=== PATIENT | male | born 1950 | race Caucasian/White ===

== ENCOUNTER → 2016-11-11 | Outpatient (CLI) | payer MEDICARE, BC ==
[2016-11-11 10:33] LABS: BASO # 0.1 x10^3/uL (0.0-0.2); BASO % 1 % (0-3); EOS # 0.1 x10^3/uL (0.0-0.7); EOS % 2 % (0-3); HEMATOCRIT 41.4 % (39.0-53.0); HEMOGLOBIN 13.8 g/dL (13.0-17.5); LYMPH # 1.1 x10^3/uL (1.0-4.8); LYMPH % 16 % (24-48); MEAN CORPUSCULAR HEMOGLOBIN 30 pg (25-35); MEAN CORPUSCULAR HGB CONC 33 g/dL (31-37); MEAN CORPUSCULAR VOLUME 89 fL (79-100); MONO # 0.9 x10^3/uL (0.0-1.1); MONO % 12 % (0-9); NEUT % 69 % (31-73); PLATELET COUNT 269 x10^3/uL (140-400); RED BLOOD COUNT 4.64 x10^6/uL (4.30-5.70); RED CELL DISTRIBUTION WIDTH 13.6 % (11.5-14.5); WHITE BLOOD COUNT 7.2 x10^3/uL (4.0-11.0)
== END | disposition home or self-care (01) ==
LOC: LAB 08:59
PROVIDERS: ATTEND Anesthesiology Pain Medicine
DX: Z11.2 Encounter for screening for other bacterial diseases (principal)
CPT/HCPCS: 36415; 85027; 87641

== ENCOUNTER 2016-12-06 14:25 | Emergency (ER) | payer MEDICARE, BC ==
[~2016-12-06] VITALS: Ht 180.3 cm; Wt 99.8 kg
[2016-12-06] MEDS ORDERED: FENTANYL PF 100 MCG/2 ML VIAL. IM ONE (15:15)
[2016-12-06 16:00] VITALS: BP 113/65
--- NOTE | 2016-12-06 16:00 | PHYS DOC ---
General Chief Complaint: BACK PAIN OR INJURY Stated Complaint: Back Pain Time Seen by MD: 14:57 Source: patient Exam Limitations: no limitations Problems: History of Present Illness Initial Comments Pt is 66/M to ED c/o back pain. Pt has h/o trauma in 2002 requiring spinal lynn, also has stimulator follows with pain management Dr Rondon. Three days ago pt swept sidewalk causing increased back pain/stiffness. No trauma on that day, uncertain if he "pulled something" or if spinal stimulator malfunction. Sx had been previously well controlled. No new neurodeficits, no leg/bowel/bladder symptoms. Pt points to L-S junction "all the way across" no specific bony pain and pt says sx are same as prior. Timing/Duration: other (2 days ago) Severity/Quality: severe, sharpness Location: lumbar spine Radiation: other (no radiation) Method of Injury: other Modifying Factors: worse with jarring, worse with movement, improves with rest Associated Symptoms: muscle spasms, lower back pain Allergies: Coded Allergies: No Known Drug Allergies (Unverified , 12/06/16) Past Medical History Medical History: other (chronic back pain, HTN, HLP, ) Surgical History: back surgery (lynn, stimulator), neck surgery, other ( comminuted left tib-fib fx) Social History Smoker: quit greater than 1 year Alcohol: occasionally Drugs: none Review of Systems Constitutional: denies chills, denies fever Respiratory: denies cough, denies shortness of breath Cardiovascular: denies chest pain, denies palpitations Gastrointestinal: denies abdominal pain, denies diarrhea, denies nausea, denies vomiting Genitourinary: denies dysuria, denies frequency, denies hematuria Musculoskeletal: see HPI Psychiatric/Neurological: see HPI Physical Exam General Appearance: moderate distress, obese Neck: non-tender, normal alignment Cardiovascular/Respiratory: normal peripheral pulses, no respiratory distress Gastrointestinal: non tender, soft Back: no CVA tenderness, no vertebral tenderness, muscle spasm Extremities: no evidence of injury, non-tender, pelvis stable 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 Pt with adequate pain relief in ED, he expressed agreement/understanding with treatment plan. Departure Time of Disposition: 15:56 Disposition: 01 HOME, SELF-CARE Diagnosis: Acute exacerbation chronic back pain Condition: GOOD Patient Instructions: Chronic Back Pain Additional Instructions: Rest, keep activity to "pain-free." Rx: percocet 7.5mg #20, prednisone, take with food as directed. Follow up with Dr Rondon next week for symptom and hardware recheck. Return to ED with new or changing symptoms. SOPHIA ALMAZAN DO Dec 06, 2016 16:00
[2016-12-06] MEDS ORDERED: OXYC-244 PO (16:01)
[2016-12-06] MEDS ORDERED: PRED20TA PO (16:01)
== END 2016-12-06 16:12 | disposition home or self-care (01) ==
LOC: ER 14:25
DX: G89.29 Other chronic pain (principal); M54.5 Low back pain; I10 Essential (primary) hypertension; E03.9 Hypothyroidism, unspecified; Z87.891 Personal history of nicotine dependence
CPT/HCPCS: 96372; 99283; J3010

== ENCOUNTER → 2016-12-12 | Outpatient (CLI) | payer MEDICARE, BC ==
[2016-12-06 16:00] VITALS: BP 113/65
[~2016-12-12] MED LIST: OXYC-244 PO; PRED20TA PO
[2016-12-12 13:44] LABS: BASO # 0.1 x10^3/uL (0.0-0.2); BASO % 0 % (0-3); EOS # 0.2 x10^3/uL (0.0-0.7); EOS % 1 % (0-3); HEMATOCRIT 42.7 % (39.0-53.0); HEMOGLOBIN 14.4 g/dL (13.0-17.5); LYMPH # 2.2 x10^3/uL (1.0-4.8); LYMPH % 14 % (24-48); MEAN CORPUSCULAR HEMOGLOBIN 29 pg (25-35); MEAN CORPUSCULAR HGB CONC 34 g/dL (31-37); MEAN CORPUSCULAR VOLUME 87 fL (79-100); MONO # 1.8 x10^3/uL (0.0-1.1); MONO % 11 % (0-9); NEUT # 11.3 x10^3uL (1.8-7.7); NEUT % 73 % (31-73); PLATELET COUNT 446 x10^3/uL (140-400); RED CELL DISTRIBUTION WIDTH 13.4 % (11.5-14.5); WHITE BLOOD COUNT 15.5 x10^3/uL (4.0-11.0)
[2016-12-12 14:10] LABS: % LYMPHS 17 % (24-48); % MONOS 11 % (0-10); % SEGS 72 % (35-66); PLT ESTIMATE INCREASED (ADEQUATE)
[2016-12-12 14:11] LABS: TOXIC GRANULATION SLIGHT
[2016-12-12 14:13] LABS: POLYCHROMASIA SLIGHT
[2016-12-12 14:59] LABS: SEDIMENTATION RATE 14 (0-15)
== END | disposition home or self-care (01) ==
LOC: LAB 12:41
PROVIDERS: ATTEND Anesthesiology Pain Medicine
DX: L03.818 Cellulitis of other sites (principal)
CPT/HCPCS: 36415; 85007; 85027; 85651; 86140

== ENCOUNTER → 2016-12-18 | Outpatient (CLI) | payer MEDICARE, BC ==
[2016-12-06 16:00] VITALS: BP 113/65
[~2016-12-18] MED LIST changes: -OXYC-244 PO; +OXYC-327 PO
[2016-12-18 13:41] LABS: BASO % 1 % (0-3); EOS # 0.1 x10^3/uL (0.0-0.7); EOS % 1 % (0-3); HEMATOCRIT 44.3 % (39.0-53.0); HEMOGLOBIN 14.8 g/dL (13.0-17.5); LYMPH # 1.6 x10^3/uL (1.0-4.8); LYMPH % 17 % (24-48); MEAN CORPUSCULAR HEMOGLOBIN 30 pg (25-35); MEAN CORPUSCULAR HGB CONC 33 g/dL (31-37); MEAN CORPUSCULAR VOLUME 89 fL (79-100); MONO % 11 % (0-9); NEUT # 6.5 x10^3uL (1.8-7.7); NEUT % 70 % (31-73); PLATELET COUNT 402 x10^3/uL (140-400); RED BLOOD COUNT 4.98 x10^6/uL (4.30-5.70); WHITE BLOOD COUNT 9.3 x10^3/uL (4.0-11.0)
[2016-12-18 13:46] LABS: BASO # 0.1 x10^3/uL (0.0-0.2)
[2016-12-18 14:48] LABS: SEDIMENTATION RATE 12 (0-15)
== END | disposition home or self-care (01) ==
LOC: LAB 12:45
PROVIDERS: ATTEND Anesthesiology
DX: L03.312 Cellulitis of back [any part except buttock and flank] (principal)
CPT/HCPCS: 36415; 85027; 85651; 86140

== ENCOUNTER → 2017-06-24 | Outpatient (CLI) | payer MEDICARE, BC ==
[2017-06-24 14:48] LABS: BASO # 0.1 x10^3/uL (0.0-0.2); BASO % 1 % (0-3); EOS # 0.2 x10^3/uL (0.0-0.7); EOS % 3 % (0-3); HEMATOCRIT 40.8 % (39.0-53.0); HEMOGLOBIN 14.1 g/dL (13.0-17.5); LYMPH # 1.3 x10^3/uL (1.0-4.8); LYMPH % 18 % (24-48); MEAN CORPUSCULAR HEMOGLOBIN 30 pg (25-35); MEAN CORPUSCULAR HGB CONC 35 g/dL (31-37); MEAN CORPUSCULAR VOLUME 87 fL (79-100); MONO % 14 % (0-9); NEUT # 4.5 x10^3uL (1.8-7.7); NEUT % 64 % (31-73); PLATELET COUNT 260 x10^3/uL (140-400); RED BLOOD COUNT 4.67 x10^6/uL (4.30-5.70); RED CELL DISTRIBUTION WIDTH 13.7 % (11.5-14.5)
[2017-06-24 14:58] LABS: ALBUMIN 3.4 g/dL (3.4-5.0); ALBUMIN/GLOBULIN RATIO 0.9 (1.0-1.7); CALCIUM 8.8 mg/dL (8.5-10.1); CREATININE 0.9 mg/dL (0.7-1.3); GFR 84.2; POTASSIUM 3.1 mmol/L (3.5-5.1); TOTAL BILIRUBIN 0.4 mg/dL (0.2-1.0); TOTAL PROTEIN 7.1 g/dL (6.4-8.2)
[2017-06-24 15:15] LABS: BILIRUBIN,URINE NEG (NEG); CLARITY,URINE CLEAR; COLOR,URINE YELLOW; GLUCOSE,URINE NEG (NEG); NITRITE,URINE NEG (NEG); UROBILINOGEN,URINE 4 mg/dL (0.2 mg/dL)
[2017-06-24 15:16] LABS: BACTERIA,URINE 0 /HPF (0-FEW); RBC,URINE OCC /HPF (0-2); SQUAMOUS EPITHELIAL CELL,UR FEW /LPF; WBC,URINE OCC /HPF (0-4)
[2017-06-25 13:28] LABS: FREE T4 1.13 ng/dL (0.76-1.46); THYROID STIM HORMONE (TSH) 4.223 uIU/mL (0.358-3.740)
== END | disposition home or self-care (01) ==
LOC: LAB 13:19
PROVIDERS: ATTEND Physician Assistant Medical
DX: I10 Essential (primary) hypertension (principal); E03.9 Hypothyroidism, unspecified; Z87.891 Personal history of nicotine dependence
CPT/HCPCS: 36415; 80053; 80061; 81001; 84439; 84443; 85025; G0103

== ENCOUNTER → 2019-01-07 | Outpatient (CLI) | payer MEDICARE, BC ==
[~2019-01-07] MED LIST changes: +IOHEXOL 300 MG/ML 75 ML VIAL. IV ONE; -OXYC-327 PO; +OXYC1TAB19 PO
[2019-01-07 12:16] LABS: CALCIUM 9.5 mg/dL (8.5-10.1); CREATININE 0.7 mg/dL (0.7-1.3); GFR 111.8; POTASSIUM 3.6 mmol/L (3.5-5.1)
--- NOTE | 2019-01-07 14:34 | RAD ---
CT of the head with and without contrast, 01/07/2019: HISTORY: Altered mental status Multidetector CT imaging was performed prior to and following an IV bolus injection of iodinated contrast material. There is moderate cerebral atrophy. Encephalomalacia is present in the right temporal and parietal lobe suggesting an old infarct. There are mild patchy lucencies in the deep white matter bilaterally compatible with chronic ischemic change. There is enlargement of the third ventricle as well as the lateral ventricles which are largest in the occipital regions. The pattern raises the possibility of dysgenesis of the corpus. There is no shift of the midline structures. There is no evidence of acute intracranial hemorrhage or mass effect. No abnormal postcontrast enhancement is evident. IMPRESSION: 1. Right temporoparietal encephalomalacia compatible with an old infarct. 2. Cerebral atrophy and mild chronic ischemic change in the deep white matter bilaterally. 3. 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 PQRS Compliance Statement: One or more of the following individualized dose reduction techniques were utilized for this examination: 1. Automated exposure control 2. Adjustment of the mA and/or kV according to patient size 3. Use of iterative reconstruction technique Electronically signed by: Michael Wright MD (01/07/2019 2:31 PM) [facility]
== END | disposition home or self-care (01) ==
LOC: PMG 11:28
PROVIDERS: ATTEND Family Medicine
DX: G93.89 Other specified disorders of brain (principal); G31.89 Other specified degenerative diseases of nervous system
CPT/HCPCS: 36415; 70470; 80048; Q9967

== ENCOUNTER → 2019-03-23 | Outpatient (CLI) | payer MEDICARE, BC ==
[~2019-03-23] MED LIST changes: -IOHEXOL 300 MG/ML 75 ML VIAL. IV ONE
--- NOTE | 2019-03-23 12:50 | RAD ---
EXAM: Chest, 2 views. HISTORY: Shortness of breath. COMPARISON: 05/25/2012 FINDINGS: 2 views of the chest are obtained. There is increased opacity within the right mid thorax due to asymmetric overlying soft tissue. There is no consolidation, pleural effusion or pneumothorax. There is a stable prominent cardiac silhouette. There is cervical and lumbar spinal fusion instrumentation. IMPRESSION: No acute pulmonary finding. Electronically signed by: Elena Chow MD (03/23/2019 12:47 PM) [place] [id number]
== END | disposition home or self-care (01) ==
LOC: PMG 11:39
PROVIDERS: ATTEND Family Medicine
DX: R06.02 Shortness of breath (principal); R60.9 Edema, unspecified
CPT/HCPCS: 71046

== ENCOUNTER 2019-03-28 20:00 | Inpatient (IN) | payer MEDICARE, BC ==
[~2019-03-28] VITALS: Ht 177.8 cm; Wt 129.4 kg
--- NOTE | 2019-03-28 21:57 | ED.ADGEN ---
Past History Past Medical History: Bronchitis, CAD, CVA, Dementia, Depression, High Cholesterol, Heart Disease, Hypertension, Other Past Medical History Nanette disorder- Hx. Hydrocephalus post CVA- Not a candidate for a shunt- per family Past Surgical History: No Surgical History Alcohol Use: Occasionally Drug Use: None Adult General Chief Complaint Chief Complaint " .. God damn it... yes I said .. I was going to kill.. myself.... what good am I... I can't God damn... walk ... or do anything... I am planning .... on cutting my God damn wrist... and over dose on my God damn meds... I don't have any God damn .. reason to live...".. " I am so God damn weak now... I can't even get ... out God damn bed... " HPI HPI Patient is a 68 year old male who presents with hx of multiple complaints. Pt. threatening suicide at home. Patient per family has had decreasing mental abilities or may be dementia for some time. Recently has become very aggres sive in his behaviors patient threatening or attempting to strike family members. Patient refusing to eat and take in fluids. Patient is very difficult to redirect and get him take his meds. Patient has multiple chronic medical issues. History of CVA with secondary hydrocephalus. Patient was not reportedly a candidate for shunt. 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 Patient has history of coronary artery disease, chronic hypokalemia and on potassium 4 times a day. Patient normally follows with Dr. Fuentes. Review of Systems Review of Systems Pt. poor historian. Constitutional: Denies fever or chills [] Eyes: Denies change in visual acuity, redness, or eye pain [] HENT: Denies nasal congestion or sore throat [] Respiratory: Denies cough or shortness of breath [] Cardiovascular: No additional information not addressed in HPI [] GI: Denies abdominal pain, nausea, vomiting, bloody stools or diarrhea [] : Denies dysuria or hematuria [] Musculoskeletal: Complaints of generalized weakness. Hx. Chronic gait disorder post prior CVA. Integument: Denies rash or skin lesions [] Neurologic: Denies headache, focal weakness or sensory changes [] Endocrine: Denies polyuria or polydipsia [] All other systems were reviewed and found to be within normal limits, except as documented in this note. Family History Family History Non-contributory Current Medications Current Medications Current Medications Medications (Trade) Dose Ordered Sig/Vicki Start Time Stop Time Status Last Admin Dose Admin Lactated Ringer's 1,000 ml @ 160 mls/hr Q6H15M 03/29/19 01:45 03/29/19 01:55 160 MLS/HR Ondansetron HCl (Zofran) 4 mg PRN Q4HRS PRN 03/29/19 01:45 03/30/19 01:44 UNV Potassium Chloride 100 ml @ 100 mls/hr Q1H 03/29/19 00:30 03/29/19 04:29 03/29/19 01:47 100 MLS/HR Potassium Chloride (Klor-Con) 40 meq 1X ONCE 03/29/19 00:15 03/29/19 00:16 DC 03/29/19 01:47 40 MEQ Allergies Allergies Allergies Coded Allergies Type Severity Reaction Last Updated Verified No Known Drug Allergies 12/06/16 No Physical Exam Physical Exam Constitutional: Moderate acute distress, non-toxic appearance. [] HENT: Normocephalic, atraumatic, bilateral external ears normal, oropharynx moist, no oral exudates, nose normal. []VERY HARD OF HEARING. Poor dentition. Eyes: PERRLA, EOMI, conjunctiva normal, no discharge. [] Neck: Normal range of motion, no tenderness, supple, no stridor. [] Cardiovascular:Heart rate regular rhythm, no murmur PMI to Lt. Lungs & Thorax: Bilateral breath sounds equal at apexes with scattered wheezes on auscultation [] Abdomen: Bowel sounds normal, soft, no tenderness, no masses, no pulsatile masses. [] Skin: Warm, dry, no erythema, no rash. []Poor turgor. Back: No tenderness, no CVA tenderness. [] Extremities: complaints of generalized weakness, chronic leg weakness, has,ankle edema. , Venous stasis changes. Neurologic: Alert and oriented X 2, move upper arm on request, bilateral leg weakness, decrease sensory function feet, Psychologic: Affect angry, , judgement appears impaired, mood depressed. Current Patient Data Vital Signs Vital Signs Date Time Temp Pulse Resp B/P (MAP) Pulse Ox O2 Delivery O2 Flow Rate FiO2 03/28/19 20:00 98.2 83 18 92 Room Air Lab Results Laboratory Tests Test 03/28/19 23:01 03/28/19 23:26 White Blood Count 10.8 x10^3/uL (4.0-11.0) Red Blood Count 4.84 x10^6/uL (4.30-5.70) Hemoglobin 14.0 g/dL (13.0-17.5) Hematocrit 42.2 % (39.0-53.0) Mean Corpuscular Volume 87 fL (79-100) Mean Corpuscular Hemoglobin 29 pg (25-35) Mean Corpuscular Hemoglobin Concent 33 g/dL (31-37) Red Cell Distribution Width 13.9 % (11.5-14.5) Platelet Count 227 x10^3/uL (140-400) Neutrophils (%) (Auto) 74 % (31-73) H Lymphocytes (%) (Auto) 11 % (24-48) L Monocytes (%) (Auto) 13 % (0-9) H Eosinophils (%) (Auto) 2 % (0-3) Basophils (%) (Auto) 1 % (0-3) Neutrophils # (Auto) 8.0 x10^3uL (1.8-7.7) H Lymphocytes # (Auto) 1.2 x10^3/uL (1.0-4.8) Monocytes # (Auto) 1.4 x10^3/uL (0.0-1.1) H Eosinophils # (Auto) 0.2 x10^3/uL (0.0-0.7) Basophils # (Auto) 0.1 x10^3/uL (0.0-0.2) Erythrocyte Sedimentation Rate 23 (0-15) H Prothrombin Time 9.9 SEC (9.4-11.4) Prothrombin Time INR 1.0 (0.9-1.1) Activated Partial Thromboplast Time 23 SEC (23-33) Sodium Level 141 mmol/L (136-145) Potassium Level 2.6 mmol/L (3.5-5.1) *L Chloride Level 97 mmol/L (98-107) L Carbon Dioxide Level 33 mmol/L (21-32) H Anion Gap 11 (6-14) Blood Urea Nitrogen 29 mg/dL (8-26) H Creatinine 0.9 mg/dL (0.7-1.3) Estimated GFR (Cockcroft-Gault) 83.7 Glucose Level 108 mg/dL (70-99) H Calcium Level 9.3 mg/dL (8.5-10.1) Magnesium Level 2.1 mg/dL (1.8-2.4) Total Bilirubin 0.9 mg/dL (0.2-1.0) Direct Bilirubin 0.3 mg/dL (0.0-0.2) H Aspartate Amino Transferase (AST) 16 U/L (15-37) Alanine Aminotransferase (ALT) 21 U/L (16-63) Alkaline Phosphatase 63 U/L (46-116) Creatine Kinase 38 U/L (39-308) L Troponin I Quantitative 0.134 ng/mL (0-0.055) H KI-Swe-S-Type Natriuretic Peptide 110 pg/mL (0-124) Total Protein 7.3 g/dL (6.4-8.2) Albumin 3.5 g/dL (3.4-5.0) Lipase 59 U/L (73-393) L Salicylates Level 6.2 mg/dL (2.8-20.0) Salicylate Last Dose Date Unknown Salicylate Last Dose Time Unknown Acetaminophen Level < 2.0 mcg/mL (10-30) L Acetaminophen Last Dose Date Unknown Acetaminophen Last Dose Time Unknown Ethyl Alcohol Level < 10 mg/dL (0-10) Urine Collection Type U cath Urine Color Yellow Urine Clarity Clear Urine pH 5.5 Urine Specific [place] 1.015 Urine Protein Neg (NEG-TRACE) Urine Glucose (UA) Neg mg/dL (NEG) Urine Ketones (Stick) Neg mg/dL (NEG) Urine Blood Small (NEG) Urine Nitrite Neg (NEG) Urine Bilirubin Neg (NEG) Urine Urobilinogen Dipstick 1 mg/dL (0.2 mg/dL) Urine Leukocyte Esterase Neg (NEG) Urine RBC 6-10 /HPF (0-2) Urine WBC Occ /HPF (0-4) Urine Squamous Epithelial Cells Few /LPF Urine Bacteria 0 /HPF (0-FEW) Urine Opiates Screen Pos (NEG) Urine Methadone Screen Neg (NEG) Urine Barbiturates Neg (NEG) Urine Phencyclidine Screen Neg (NEG) Urine Amphetamine/Methamphetamine Neg (NEG) Urine Benzodiazepines Screen Neg (NEG) Urine Cocaine Screen Neg (NEG) Urine Cannabinoids Screen Neg (NEG) Urine Ethyl Alcohol Neg (NEG) EKG EKG I interpretation EKG shows sinus rhythm at 80 bpm. Some nonspecific a bnormalities in anterior lateral leads. No findings acute STEMI of contralateral changes.[] Radiology/Procedures Radiology/Procedures [][address] [address] IMAGING REPORT Signed PATIENT: JASSON ALSTON ACCOUNT: [id number] : 1950 LOCATION: ER AGE: 68 SEX: M EXAM STATUS: REG ER ORD. PHYSICIAN: MARIANA REAVES MD REASON: Mental status change.Hx past CVA and hydrocephalus PROCEDURE: CT HEAD WO CONTRAST CT head without contrast dated 03/29/2019. Comparison made to 01/07/2019. CLINICAL INDICATION: Mental status change. History of CVA. TECHNIQUE: Contiguous axial imaging of the head was performed from skull base to vertex. No contrast administered. FINDINGS: There is moderate to severe dilation of the bilateral occipital horns and third ventricle, unchanged. No midline shift or mass effect. Focal zones of encephalomalacia involving the right temporal lobe and right parietal lobe, unchanged. Mild patchy low density in the deep/subcortical periventricular white matter. No hemorrhage or extra-axial collection. Posterior fossa and brainstem unremarkable. Visualized paranasal sinuses and mastoid air cells are clear. No apparent calvarial abnormality. IMPRESSION: 1. No evidence of acute intracranial hemorrhage or mass. 2. Focal zones of encephalomalacia in the right temporal and right parietal regions, stable. 3. Abnormal configuration of the ventricular system is also stable from prior study. 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 4. Mild chronic small vessel ischemic changes and atrophy. Electronically signed by: Prince Portillo MD (03/29/2019 1:19 AM) [facility] DICTATED AND SIGNED BY: PRINCE PORTILLO MD DATE: 03/29/19 0119 CC: MARIANA REAVES MD; KYLER FUENTES MD ~ Course & Med Decision Making Course & Med Decision Making Pertinent Labs and Imaging studies reviewed. (See chart for details) Family are exhausted with his care and are concerned that he may be becoming very demented. Requested he be evaluated for competency and treat his underlying hypokalemia. Currently tele psych will not evaluate until potassium is normalized. Plan admit for rehydration and tx. of his critical hypokalemia. Cardiology consult for his elevated trop. Patient somewhat less agitated after family left. Is agreeable to taking his meds currently. Patient admitted to Dr. Cabello for treatment of his hyperkalemia. Hopefully will be able to get a tele-psych consult once his potassium normalized [] Final Impression Final Impression 1. Suicidal Ideation 2. []Hypokalemia 3. Dehydration 4. Gait Disorder- CVA and Hydrocephalus 5. Elevate Trop. 0.134 6. Aggressive behaviors 7. Dementia 8. Increased muscle weakness Dragon Disclaimer Dragon Disclaimer This electronic medical record was generated, in whole or in part, using a voice recognition dictation system. Dragon Disclaimer This chart was dictated in whole or in part using Voice Recognition software in a busy, high-work load, and often noisy Emergency Department environment. It may contain unintended and wholly unrecognized errors or omissions. MARIANA REAVES MD Mar 28, 2019 21:57
[2019-03-28] MEDS ORDERED: IV RINGERS SOLUTION,LACTATED 1,000 ML IV SCH (22:00)
[2019-03-28 23:35] LABS: BASO # 0.1 x10^3/uL (0.0-0.2); BASO % 1 % (0-3); EOS # 0.2 x10^3/uL (0.0-0.7); EOS % 2 % (0-3); HEMATOCRIT 42.2 % (39.0-53.0); LYMPH # 1.2 x10^3/uL (1.0-4.8); LYMPH % 11 % (24-48); MEAN CORPUSCULAR HEMOGLOBIN 29 pg (25-35); MEAN CORPUSCULAR HGB CONC 33 g/dL (31-37); MEAN CORPUSCULAR VOLUME 87 fL (79-100); MONO # 1.4 x10^3/uL (0.0-1.1); MONO % 13 % (0-9); NEUT % 74 % (31-73); PLATELET COUNT 227 x10^3/uL (140-400); RED BLOOD COUNT 4.84 x10^6/uL (4.30-5.70); RED CELL DISTRIBUTION WIDTH 13.9 % (11.5-14.5); WHITE BLOOD COUNT 10.8 x10^3/uL (4.0-11.0)
[2019-03-28 23:48] LABS: BARBITURATES NEG (NEG); BENZODIAZEPINES NEG (NEG); CANNABINOIDS NEG (NEG); COCAINE NEG (NEG); METHADONE NEG (NEG); OPIATES POS (NEG); PHENCYCLIDINE NEG (NEG)
[2019-03-28 23:52] LABS: BACTERIA,URINE 0 /HPF (0-FEW); BILIRUBIN,URINE NEG (NEG); CLARITY,URINE CLEAR; COLOR,URINE YELLOW; GLUCOSE,URINE NEG (NEG); NITRITE,URINE NEG (NEG); SQUAMOUS EPITHELIAL CELL,UR FEW /LPF; UROBILINOGEN,URINE 1 mg/dL (0.2 mg/dL); WBC,URINE OCC /HPF (0-4)
[2019-03-28 23:54] LABS: ALBUMIN 3.5 g/dL (3.4-5.0); CALCIUM 9.3 mg/dL (8.5-10.1); CREATININE 0.9 mg/dL (0.7-1.3); DIRECT BILIRUBIN 0.3 mg/dL (0.0-0.2); GFR 83.7; MAGNESIUM 2.1 mg/dL (1.8-2.4); TOTAL BILIRUBIN 0.9 mg/dL (0.2-1.0); TOTAL PROTEIN 7.3 g/dL (6.4-8.2)
[2019-03-28 23:56] LABS: AMPHETAMINE/METHAMPHETAMINE NEG (NEG)
[2019-03-28 23:56] LABS: ACETAMIN < 2.0 mcg/mL (10-30); ETHANOL < 10 mg/dL (0-10); SALIC 6.2 mg/dL (2.8-20.0)
[2019-03-29] LABS: POTASSIUM 2.6 mmol/L (3.5-5.1)
[2019-03-29] MEDS ORDERED: POTASSIUM CHLORIDE 20MEQ 100 ML IV SCH
[2019-03-29] MEDS ORDERED: POTASSIUM CHLORIDE 20 MEQ TABLET.ER. PO ONE (00:15)
[2019-03-29 00:31] LABS: SEDIMENTATION RATE 23 (0-15)
--- NOTE | 2019-03-29 01:22 | RAD ---
CT head without contrast dated 03/29/2019. Comparison made to 01/07/2019. CLINICAL INDICATION: Mental status change. History of CVA. TECHNIQUE: Contiguous axial imaging of the head was performed from skull base to vertex. No contrast administered. FINDINGS: There is moderate to severe dilation of the bilateral occipital horns and third ventricle, unchanged. No midline shift or mass effect. Focal zones of encephalomalacia involving the right temporal lobe and right parietal lobe, unchanged. Mild patchy low density in the deep/subcortical periventricular white matter. No hemorrhage or extra-axial collection. Posterior fossa and brainstem unremarkable. Visualized paranasal sinuses and mastoid air cells are clear. No apparent calvarial abnormality. IMPRESSION: 1. No evidence of acute intracranial hemorrhage or mass. 2. Focal zones of encephalomalacia in the right temporal and right parietal regions, stable. 3. Abnormal configuration of the ventricular system is also stable from prior study. 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 4. Mild chronic small vessel ischemic changes and atrophy. Electronically signed by: Prince Portillo MD (03/29/2019 1:19 AM) [facility]
[2019-03-29] MEDS ORDERED: ONDANSETRON PF 4 MG/2 ML VIAL. IV PRN (01:45)
[2019-03-29] MEDS: POTASSIUM CHLORIDE 10MEQ 100 ML IV SCH ×8 (01:47→14:46)
[2019-03-29] MEDS: IV RINGERS SOLUTION,LACTATED 1,000 ML IV SCH ×2 (01:55→10:30)
[2019-03-29 03:50] VITALS: BP 132/84
[2019-03-29] MEDS ORDERED: HYDR-2145 PO (04:09)
[2019-03-29] MEDS ORDERED: PRAV80TA2 PO (04:09)
[2019-03-29] MEDS ORDERED: MORP15TA PO (04:09)
[2019-03-29] MEDS ORDERED: CELE200C PO (04:17)
[2019-03-29] MEDS ORDERED: POTA10TA10 PO (04:17)
[2019-03-29] MEDS ORDERED: LOSA1TAB22 PO (04:17)
[2019-03-29] MEDS ORDERED: OXYB10TA PO (04:17)
[2019-03-29] MEDS ORDERED: MIRT15TA3 PO (04:17)
[2019-03-29] MEDS ORDERED: GABA600T7 PO (04:17)
[2019-03-29 07:11] VITALS: BP 141/80
--- NOTE | 2019-03-29 07:49 | RAD ---
EXAM: AP View of the chest DATE: 03/28/2019 9:38 PM INDICATION: Cough COMPARISON: No Prior FINDINGS: Heart is mildly enlarged, accentuated by low lung volumes. Aorta is tortuous. Bilateral lung base patchy airspace opacities are seen. No pleural effusion or definite pneumothorax. No focal parenchymal airspace opacity. No pleural effusion or pneumothorax. IMPRESSION: Bibasilar patchy air space opacities may represent atelectasis or developing consolidative process such as pneumonia. These are accentuated by low lung volumes. Electronically signed by: Taye Vargas MD (03/29/2019 7:45 AM) [facility]
[2019-03-29] MEDS: IPRATRPIUM/ALBUTEROL 0.5/2.5MG 3 ML NEBU. NEB SCH ×4 (08:00→20:00)
[2019-03-29] MEDS ORDERED: FURO20TA3 PO (08:24)
[2019-03-29 08:41] LABS: CALCIUM 8.6 mg/dL (8.5-10.1); CREATININE 0.7 mg/dL (0.7-1.3); GFR 111.8
[2019-03-29 08:42] LABS: POTASSIUM 2.9 mmol/L (3.5-5.1)
[2019-03-29] MEDS: ASPIRIN 81 MG TAB.CHEW PO SCH (08:46)
[2019-03-29] MEDS: POTASSIUM CHLORIDE 20 MEQ TABLET.ER. PO SCH ×3 (08:46→17:12)
[2019-03-29] MEDS ORDERED: predniSONE 20 MG TABLET PO SCH (09:00)
[2019-03-29] MEDS ORDERED: NON FORMULARY ITEM (Potassium Chloride 20 MEQ) PO SCH (09:00)
[2019-03-29] MEDS ORDERED: CELECOXIB 200 MG CAPSULE PO SCH (09:00)
[2019-03-29] MEDS: LACTOBACILLUS RHAMNOSUS GG 1 CAPSULE. PO SCH ×2 (09:12→21:20)
[2019-03-29] MEDS: OXYBUTYNIN CHLORIDE 5 MG TABLET PO SCH ×2 (09:13→21:20)
[2019-03-29] MEDS: GABAPENTIN 300 MG CAPSULE. PO SCH ×3 (09:13→21:20)
[2019-03-29] MEDS: CELECOXIB 100 MG CAPSULE PO SCH (09:13)
--- NOTE | 2019-03-29 09:52 | EKG ---
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
--- NOTE | 2019-03-29 09:55 | EKG ---
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
[2019-03-29 10:53] VITALS: BP 129/85
[2019-03-29] MEDS ORDERED: oxyCODONE/APAP 7.5/325 1 TAB TABLET PO PRN (12:00)
--- NOTE | 2019-03-29 13:02 | PDOC2 ---
CONSULT Date of Admission DATE: 03/29/19 TIME: 13:02 Reason for Consult: Slightly elevated troponin level Referring Physician: Dr. Cabello Chief Complaint Suicidal ideation Problem List Problems Medical Problems: (1) Hypokalemia Status: Acute (2) Suicidal ideation Status: Acute History of Present Illness 68-year-old male with history of secondary hydrocephalus post CVA with decreas ing mental abilities at home has been admitted for mental status changes and suicidal ideations. His troponin level was slightly elevated and hence cardiology has been consulted. He denied any chest pain, orthopnea or palpitations. Past Medical History ? Coronary artery disease (mentioned in chart but patient denies) Hypertension Hyperlipidemia CVA Dementia Secondary hydrocephalus, poor candidate for shunt placement Depression Past Surgical History: No pertinent history Family History HTN Social History Patient admitted to occasional alcohol use but denied any smoking or drug abuse Current Medications Current Medications Lactated Ringer's 1,000 ml @ 1,000 mls/hr Q1H IV Last administered on 03/28/19at 23:28; Start 03/28/19 at 22:00; Stop 03/28/19 at 22:59; Status DC Potassium Chloride (Klor-Con) 40 meq 1X ONCE PO Last administered on 03/29/19at 01:47; Start 03/29/19 at 00:15; Stop 03/29/19 at 00:16; Status DC Potassium Chloride 100 ml @ 50 mls/hr Q1H IV ; Start 03/29/19 at 00:00; Stop 03/29/19 at 01:59; Status UNV Potassium Chloride 100 ml @ 100 mls/hr Q1H IV Last administered on 03/29/19at 05:49; Start 03/29/19 at 00:30; Stop 03/29/19 at 04:30; Status DC Ondansetron HCl (Zofran) 4 mg PRN Q4HRS PRN IV NAUSEA/VOMITING; Start 03/29/19 at 01:45; Stop 03/30/19 at 01:44 Albuterol/ Ipratropium (Duoneb) 3 ml RTQID NEB ; Start 03/29/19 at 08:00; Stop 03/30/19 at 07:59 Lactated Ringer's 1,000 ml @ 160 mls/hr Q6H15M IV Last administered on 03/29/19at 10:43; Start 03/29/19 at 01:45 Potassium Chloride (Klor-Con) 40 meq TIDWMEALS PO Last administered on 03/29/19at 12:20; Start 03/29/19 at 08:00 Aspirin (Children'S Aspirin) 81 mg DAILY08 PO Last administered on 03/29/19at 08:47; Start 03/29/19 at 08:00 Celecoxib (CeleBREX) 200 mg DAILY PO ; Start 03/29/19 at 09:00; Stop 03/29/19 at 08:33; Status DC Mirtazapine (Remeron) 15 mg QHS PO ; Start 03/29/19 at 21:00 Morphine Sulfate (Morphine Ir) 15 mg HS PO ; Start 03/29/19 at 21:00 Oxycodone/ Acetaminophen (Percocet 7.5/ 325) 1 tab PRN Q6HRS PRN PO PAIN; Start 03/29/19 at 12:00 Prednisone (Prednisone) 20 mg BID PO Last administered on 03/29/19at 09:13; Start 03/29/19 at 09:00 Gabapentin (Neurontin) 600 mg TID PO Last administered on 03/29/19at 09:13; Start 03/29/19 at 09:00 Oxybutynin Chloride (Ditropan) 5 mg BID PO Last administered on 03/29/19 09:13; Start 03/29/19 at 09:00 Non-Formulary Medication (Potassium Chloride ) 20 meq DAILY PO ; Start 03/29/19 at 09:00; Stop 03/29/19 at 08:01; Status DC Non-Formulary Medication (Pravastatin Sodium ) 1 tab QHS PO ; Start 03/29/19 at 21:00; Stop 03/29/19 at 08:01; Status DC Lorazepam (Ativan Inj) 2 mg PRN Q4HRS PRN IV ANXIETY / AGITATION; Start at 08:00 Ceftriaxone Sodium 1 gm/ Sodium Chloride 50 ml @ 100 mls/hr Q24H IV ; Start 03/29/19 at 08:30 Lactobacillus Rhamnosus (Culturelle) 1 cap BID PO Last administered on 03/29/19at 09:13; Start 03/29/19 at 09:00 Celecoxib (CeleBREX) 200 mg DAILY PO Last administered on 03/29/19at 09:13; Start 03/29/19 at 09:00 Potassium Chloride 100 ml @ 100 mls/hr Q1H IV Last administered on 03/29/19at 12:20; Start 03/29/19 at 08:45; Stop 03/29/19 at 12:44; Status DC Nystatin/ Triamcinolone Acetonide (Mycolog Ii) 1 namita BID TP ; Start 03/29/19 at 21:00 Active Scripts Active Prednisone 20 Mg Tablet 1 Tab PO BID Percocet 7.5-325 Mg Tablet (Oxycodone Hcl/Acetaminophen) 1 Each Tablet 1 Tab PO Q6HRS Reported Furosemide 20 Mg Tablet 20 Mg PO BID92 Mirtazapine 15 Mg Tablet 1 Tab PO QHS Oxybutynin Chloride Er (Oxybutynin Chloride) 10 Mg Tab.er.24 1 Tab PO DAILY Potassium Chloride 10 Meq Tablet.er 20 Meq PO DAILY Gabapentin 600 Mg Tablet 600 Mg PO TID Celebrex (Celecoxib) 200 Mg Capsule 1 Cap PO DAILY Losartan-Hctz 100-25 Mg Tab (Losartan/Hydrochlorothiazide) 1 Each Tablet 1 Tab PO DAILY Morphine Sulfate 15 Mg Tablet 15 Mg PO HS Hydrochlorothiazide Tablet (Hydrochlorothiazide) 25 Mg Tablet 25 Mg PO DAILY Pravastatin Sodium 80 Mg Tablet 1 Tab PO QHS Allergies: Coded Allergies: No Known Drug Allergies (Unverified , 12/06/16) PSYCHOLOGICAL ROS: YES: Behavioral Disorder, Concentration difficultie, Depression, Hallucinations, Hostility, Suicidal ideation Eyes: No: Loss of vision HEENT: No: Epistaxis Respiratory: No: Hemoptysis, Shortness of breath Cardiovascular: No: Chest Pain Gastrointestinal: No: Vomiting, Diarrhea Neurological: No: Seizures Skin: No: Rash General: Alert, Oriented X3 HEENT: Atraumatic, PERRLA Lungs: Clear to auscultation Heart: Regular rate Abdomen: Soft Extremities: Other (2+ pitting edema) Psych/Mental Status: Mood NL VITALS Vital Signs Date Time Temp Pulse Resp B/P (MAP) Pulse Ox O2 Delivery O2 Flow Rate FiO2 03/29/19 11:16 96 Room Air 03/29/19 10:53 97.8 72 20 129/85 (100) Labs Laboratory Tests Test 03/28/19 23:01 03/28/19 23:26 03/29/19 07:14 03/29/19 08:12 White Blood Count 10.8 x10^3/uL (4.0-11.0) Red Blood Count 4.84 x10^6/uL (4.30-5.70) Hemoglobin 14.0 g/dL (13.0-17.5) Hematocrit 42.2 % (39.0-53.0) Mean Corpuscular Volume 87 fL (79-100) Mean Corpuscular Hemoglobin 29 pg (25-35) Mean Corpuscular Hemoglobin Concent 33 g/dL (31-37) Red Cell Distribution Width 13.9 % (11.5-14.5) Platelet Count 227 x10^3/uL (140-400) Neutrophils (%) (Auto) 74 % (31-73) Lymphocytes (%) (Auto) 11 % (24-48) Monocytes (%) (Auto) 13 % (0-9) Eosinophils (%) (Auto) 2 % (0-3) Basophils (%) (Auto) 1 % (0-3) Neutrophils # (Auto) 8.0 x10^3uL (1.8-7.7) Lymphocytes # (Auto) 1.2 x10^3/uL (1.0-4.8) Monocytes # (Auto) 1.4 x10^3/uL (0.0-1.1) Eosinophils # (Auto) 0.2 x10^3/uL (0.0-0.7) Basophils # (Auto) 0.1 x10^3/uL (0.0-0.2) Erythrocyte Sedimentation Rate 23 (0-15) Prothrombin Time 9.9 SEC (9.4-11.4) Prothromb Time International Ratio 1.0 (0.9-1.1) Activated Partial Thromboplast Time 23 SEC (23-33) Sodium Level 141 mmol/L (136-145) 139 mmol/L (136-145) Potassium Level 2.6 mmol/L (3.5-5.1) 2.9 mmol/L (3.5-5.1) Chloride Level 97 mmol/L (98-107) 99 mmol/L (98-107) Carbon Dioxide Level 33 mmol/L (21-32) 33 mmol/L (21-32) Anion Gap 11 (6-14) 7 (6-14) Blood Urea Nitrogen 29 mg/dL (8-26) 24 mg/dL (8-26) Creatinine 0.9 mg/dL (0.7-1.3) 0.7 mg/dL (0.7-1.3) Estimated GFR (Cockcroft-Gault) 83.7 111.8 Glucose Level 108 mg/dL (70-99) 101 mg/dL (70-99) Calcium Level 9.3 mg/dL (8.5-10.1) 8.6 mg/dL (8.5-10.1) Magnesium Level 2.1 mg/dL (1.8-2.4) Total Bilirubin 0.9 mg/dL (0.2-1.0) Direct Bilirubin 0.3 mg/dL (0.0-0.2) Aspartate Amino Transf (AST/SGOT) 16 U/L (15-37) Alanine Aminotransferase (ALT/SGPT) 21 U/L (16-63) Alkaline Phosphatase 63 U/L (46-116) Creatine Kinase 38 U/L (39-308) Troponin I Quantitative 0.134 ng/mL (0-0.055) 0.126 ng/mL (0-0.055) VR-Dvv-W-Type Natriuretic Peptide 110 pg/mL (0-124) Total Protein 7.3 g/dL (6.4-8.2) Albumin 3.5 g/dL (3.4-5.0) Lipase 59 U/L (73-393) Salicylates Level 6.2 mg/dL (2.8-20.0) Salicylate Last Dose Date Unknown Salicylate Last Dose Time Unknown Acetaminophen Level < 2.0 mcg/mL (10-30) Acetaminophen Last Dose Date Unknown Acetaminophen Last Dose Time Unknown Ethyl Alcohol Level < 10 mg/dL (0-10) Urine Collection Type U cath Urine Color Yellow Urine Clarity Clear Urine pH 5.5 Urine Specific [place] 1.015 Urine Protein Neg (NEG-TRACE) Urine Glucose (UA) Neg mg/dL (NEG) Urine Ketones (Stick) Neg mg/dL (NEG) Urine Blood Small (NEG) Urine Nitrite Neg (NEG) Urine Bilirubin Neg (NEG) Urine Urobilinogen Dipstick 1 mg/dL (0.2 mg/dL) Urine Leukocyte Esterase Neg (NEG) Urine RBC 6-10 /HPF (0-2) Urine WBC Occ /HPF (0-4) Urine Squamous Epithelial Cells Few /LPF Urine Bacteria 0 /HPF (0-FEW) Urine Opiates Screen Pos (NEG) Urine Methadone Screen Neg (NEG) Urine Barbiturates Neg (NEG) Urine Phencyclidine Screen Neg (NEG) Urine Amphetamine/Methamphetamine Neg (NEG) Urine Benzodiazepines Screen Neg (NEG) Urine Cocaine Screen Neg (NEG) Urine Cannabinoids Screen Neg (NEG) Urine Ethyl Alcohol Neg (NEG) Lactic Acid Level 0.7 mmol/L (0.4-2.0) Test 03/29/19 11:01 Troponin I Quantitative 0.129 ng/mL (0-0.055) Assessment/Plan 1. Suicidal ideation: Plan to consult tele-psych 2. Slight troponin elevation most probably demand ischemia. 2-D echo showed normal LV function without any wall motion abnormalities. Ischemic evaluation could be considered as an outpatient. 3. Hypokalemia: magnesium level within normal limits. Being replaced orally and IV 4. Hypertension: Controlled 5. Hyperlipidemia: Statins 6. Edema: Could be secondary to mild diastolic heart failure. Patient was on L asix at home but this is being held secondary to hypokalemia. We will resume once potassium is replaced. Thank you for your consultation PONCHO LÓPEZ MD Mar 29, 2019 13:02
[2019-03-29 14:35] VITALS: BP 130/72
--- NOTE | 2019-03-29 17:07 | CARD ---
MR#: [id number] Date of Study: 03/29/2019 Ordering Physician: AMANDA MURRAY, Referring Physician: ARTURO SHOEMAKER, Tech: Marcie Bell APPROVED REPORT EXAM: Two-dimensional and M-mode echocardiogram with Doppler and color Doppler. Other Information Quality : FairHR: 60bpm Technically limited study due to body habitus and heavy breathing INDICATION Cardiac Disease: CAD Congestive Heart Failure RISK FACTORS Hypertension Hyperlipidemia 2D DIMENSIONS RVDd3.1 (2.9-3.5cm)Left Atrium(2D)2.8 (1.6-4.0cm) IVSd1.1 (0.7-1.1cm)Aortic Root(2D)3.6 (2.0-3.7cm) LVDd4.4 (3.9-5.9cm)LVOT Diameter2.3 (1.8-2.4cm) PWd1.3 (0.7-1.1cm)LVDs2.5 (2.5-4.0cm) FS (%) 44.5 %SV67.8 ml LVEF(%)76.0 (>50%) Aortic Valve AoV Peak Gene.160.9cm/sAoV VTI32.0cm AO Peak GR.10.4mmHgLVOT Peak Gene.107.2cm/s LVOT VTI 22.24cmAO Mean GR.6mmHg MARIAN (VMAX)2.36vv5RAT (VTI)2.81cm2 Mitral Valve MV E Sjxlpuln06.3cm/sMV DECEL [id number] MV A Qegpgwiy50.9cm/sE/A Ratio0.8 Pulmonary Valve PV Peak Audnghon37.5cm/sPV Peak Grad.3mmHg Tricuspid Valve RAP [id number] Pulmonary Vein S1 Fozxqgdf76.9cm/sD2 Otfdasqo34.1cm/s LEFT VENTRICLE The left ventricle is normal size. There is mild to moderate concentric left ventricular hypertrophy. The left ventricular systolic function is normal. The Ejection Fraction is 60-65%. There is normal L V segmental wall motion. Transmitral Doppler flow pattern is Grade I-abnormal relaxation pattern. RIGHT VENTRICLE The right ventricle is normal size. There is normal right ventricular wall thickness. The right ventr icular systolic function is normal. ATRIA The left atrium size is normal. The right atrium size is normal. The interatrial septum is intact wit h no evidence for an atrial septal defect or patent foramen ovale as noted on 2-D or Doppler imaging. AORTIC VALVE The aortic valve is normal in structure and function. Doppler and Color Flow revealed no significant aortic regurgitation. There is no significant aortic valvular stenosis. MITRAL VALVE The mitral valve is normal in structure and function. There is no evidence of mitral valve prolapse. There is no mitral valve stenosis. Doppler and Color Flow revealed no mitral valve regurgitation note d. TRICUSPID VALVE The tricuspid valve is not well visualized. Doppler and Color Flow revealed no tricuspid valve regurg itation noted. There is no tricuspid valve stenosis. PULMONIC VALVE The pulmonic valve is not well visualized. Doppler and Color Flow revealed trace pulmonic valvular re gurgitation. GREAT VESSELS The aortic root is normal in size. The IVC is dilated and collapses <50%. PERICARDIAL EFFUSION There is no evidence of significant pericardial effusion. Critical Notification Critical Value: No <Conclusion> The left ventricular systolic function is normal. The Ejection Fraction is 60-65%. There is normal LV segmental wall motion. Transmitral Doppler flow pattern is Grade I-abnormal relaxation pattern. There is no evidence of significant pericardial effusion. Signed by : Viet Poon, Electronically Approved : 03/29/2019 17:07:00
--- NOTE | 2019-03-29 18:15 | HP ---
ADMIT DATE: 03/29/2019 HISTORY OF PRESENT ILLNESS: The patient is a 68-year-old male patient who came to the Emergency Room complaining of generalized weakness. He is unable to walk, unable to do anything for himself. He is always in bed and is threatening suicide at home. The patient's family has had decreasing mental care abilities and may be dementia for some time. Recently, he becomes very aggressive in his behavior and the patient threatening or attempting to strike family members. He is refusing to eat and take fluids. He is very difficult to redirect and get him take his medication. He does have chronic medical problems including CVA with secondary hydrocephalus. He apparently is not a candidate for a ventriculoperitoneal shunt. He is very unsteady on his gait and can only stand, but cannot walk. He was admitted. He was investigated extensively in the Emergency Room and was found to have severe hypokalemia with serum potassium of 2.6 transpired that he was on a huge amount of diuretics; in fact, he is on a combination of losartan/hydrochlorothiazide. He is also on hydrochlorothiazide on his own and also Lasix 20 mg twice a day. 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 He has chronic hypokalemia. He is actually on potassium chloride 20 mEq twice a day. He is known to have chronic bronchitis, coronary artery disease, dementia, and depression. PAST SURGICAL HISTORY: Unremarkable except for what seemed to be coil embolization of intracerebral bleed or intracerebral aneurysm, although I do not have firm evidence of that. ALLERGIES: He has no known drug allergies. MEDICATIONS: He is currently on following medications: He is on pravastatin sodium 80 mg once a day, losartan/hydrochlorothiazide 100/25 one tablet once a day and he is on Celebrex 200 mg once a day, morphine sulfate 50 mg at bedtime, oxycodone/APAP 7.5/325 one tablet every 6 hours, gabapentin 600 mg 3 times a day, mirtazapine 50 mg at bedtime, potassium chloride 20 mEq twice a day, furosemide 20 mg twice a day, hydrochlorothiazide 25 mg once a day. He is on prednisone 20 mg twice a day, oxybutynin chloride 10 mg once a day. FAMILY HISTORY: He has 2 brothers and 1 sister. His sister is older and currently in a fci and one brother because of myocardial infarction, the other one has diabetes. Her parents are . SOCIAL HISTORY: He is , has no children of his own. He continued to smoke 2 packs a day. He does not drink alcohol or use any recreational drugs. 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 REVIEW OF SYSTEMS: As per history of present illness. PHYSICAL EXAMINATION: GENERAL: On arrival to the Emergency Room, the patient looked well and was clearly in no apparent respiratory distress. No pallor. In fact, he seemed to be extremely tanned. There is no jaundice, cyanosis or thyromegaly. No jugular venous distention. Mild bilateral lower limb edema. VITAL SIGNS: His heart rate was 76, blood pressure 141/80, temperature 97.9, respiratory rate was 18, and oxygen saturation was 92%. HEAD, EYES, EARS, NOSE AND THROAT: Showed normocephalic, atraumatic. NECK: Supple. HEART: Showed normal first and second heart sounds. No gallop, rub or murmur. CHEST: Clear to auscultation. No crepitation or rhonchi. ABDOMEN: Distended, soft, nontender. NEUROLOGIC: He is very hard of hearing, but otherwise alert. Cranial nerves are intact. He has left-sided hemiparesis. He has fixed flexion contracture of his left fingers. LABORATORY DATA: Showed a serum sodium 141, potassium 2.6, chloride 97, bicarbonate 33, anion gap of 11, BUN 29, creatinine 0.9, estimated GFR was 83 mL per minute, his glucose 108, calcium was 9.3, magnesium 2.1. Total bilirubin, AST, ALT, alkaline phosphatase were normal. His CK was only 38. Troponin was 0.134. His beta-natriuretic peptide was only 110. Total protein was 7.3, albumin 3.5 and lipase was 59. His prothrombin time was 9.9, INR of 1, aPTT was 23. His urinalysis was essentially unremarkable and toxic screen was positive for opiates and negative for all other drugs. He apparently has had chest x-ray, which showed that the heart is mildly enlarged, accentuated by low lung volumes. Aorta is tortuous. Bilateral lung base patchy airspace opacities are seen. No pleural effusion or definite pneumothorax. No focal parenchymal airspace opacities. No pleural effusion or pneumothorax. Impression: The patient has bibasilar patchy airspace opacities, may represent atelectasis or developing consolidative process such as pneumonia. These are accentuated by low lung volumes. CT scan showed there is [id number] dilatation of the bilateral occipital horns and third ventricle, unchanged. No midline shift or mass effect. Focal zones of encephalomalacia involving the right temporal lobe and right parietal lobe, unchanged. He has mild low density in the deep subcortical periventricular white matter. No hemorrhage or extraaxial fluid collection. Posterior fossa and brainstem are unremarkable. Visualized paranasal sinuses and mastoid air cells are clear. No apparent calvarial abnormality. IMPRESSION: The patient with no evidence of acute intracranial hemorrhage or mass. He has focal zones of encephalomalacia in the right temporal and right parietal region, stable. He has had normal configuration. Left ventricular system is also stable from ____ study. 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 He has mild chronic small vessel ischemic changes and atrophy. The patient was admitted with extreme weakness and self-care deficits. He was found also to have severe hypokalemia, likely related to his excessive diuresis. PLAN: To hold his diuretics for now. Replenishing potassium. He is extremely tanned and heavy smoker raised the possibility of ectopic ACTH hormone ____ since I will arrange for him to check his morning cortisone and we will consult Physical and occupational therapy. He was seen by the cardiology team for elevated troponin and did not recommend any further ischemic workup. ARTURO SHOEMAKER MD DR: CIRA/katelynn JOB#: [id number] / [id number]
--- NOTE | 2019-03-29 18:15 | PDOC ---
Exam Note: Luigi Note: Please also refer to the separate dictated note~for this date of service dictated separately.~Patient seen individually. Discussed the patient with Nursing staff reviewed the chart.~Reviewed interim history and current functioning. Reviewed vital signs,~Labs/ Radiology~and current medications noted below. Continue current treatment with the changes noted in the dictated addendum note Assessment: Vital Signs/I&O: Vital Signs Date Time Temp Pulse Resp B/P (MAP) Pulse Ox O2 Delivery O2 Flow Rate FiO2 03/29/19 16:32 94 Room Air 03/29/19 14:35 97.9 98 22 130/72 (91) I & O 03/28/19 03/28/19 03/29/19 15:00 23:00 07:00 Intake Total 1390 ml Output Total 200 ml Balance 1190 ml Labs: Laboratory Tests Test 03/28/19 23:01 03/28/19 23:26 03/29/19 07:14 03/29/19 08:12 White Blood Count 10.8 x10^3/uL (4.0-11.0) Red Blood Count 4.84 x10^6/uL (4.30-5.70) Hemoglobin 14.0 g/dL (13.0-17.5) Hematocrit 42.2 % (39.0-53.0) Mean Corpuscular Volume 87 fL (79-100) Mean Corpuscular Hemoglobin 29 pg (25-35) Mean Corpuscular Hemoglobin Concent 33 g/dL (31-37) Red Cell Distribution Width 13.9 % (11.5-14.5) Platelet Count 227 x10^3/uL (140-400) Neutrophils (%) (Auto) 74 % (31-73) H Lymphocytes (%) (Auto) 11 % (24-48) L Monocytes (%) (Auto) 13 % (0-9) H Eosinophils (%) (Auto) 2 % (0-3) Basophils (%) (Auto) 1 % (0-3) Neutrophils # (Auto) 8.0 x10^3uL (1.8-7.7) H Lymphocytes # (Auto) 1.2 x10^3/uL (1.0-4.8) Monocytes # (Auto) 1.4 x10^3/uL (0.0-1.1) H Eosinophils # (Auto) 0.2 x10^3/uL (0.0-0.7) Basophils # (Auto) 0.1 x10^3/uL (0.0-0.2) Erythrocyte Sedimentation Rate 23 (0-15) H Prothrombin Time 9.9 SEC (9.4-11.4) Prothrombin Time INR 1.0 (0.9-1.1) Activated Partial Thromboplast Time 23 SEC (23-33) Sodium Level 141 mmol/L (136-145) 139 mmol/L (136-145) Potassium Level 2.6 mmol/L (3.5-5.1) *L 2.9 mmol/L (3.5-5.1) *L Chloride Level 97 mmol/L (98-107) L 99 mmol/L (98-107) Carbon Dioxide Level 33 mmol/L (21-32) H 33 mmol/L (21-32) H Anion Gap 11 (6-14) 7 (6-14) Blood Urea Nitrogen 29 mg/dL (8-26) H 24 mg/dL (8-26) Creatinine 0.9 mg/dL (0.7-1.3) 0.7 mg/dL (0.7-1.3) Estimated GFR (Cockcroft-Gault) 83.7 111.8 Glucose Level 108 mg/dL (70-99) H 101 mg/dL (70-99) H Calcium Level 9.3 mg/dL (8.5-10.1) 8.6 mg/dL (8.5-10.1) Magnesium Level 2.1 mg/dL (1.8-2.4) Total Bilirubin 0.9 mg/dL (0.2-1.0) Direct Bilirubin 0.3 mg/dL (0.0-0.2) H Aspartate Amino Transferase (AST) 16 U/L (15-37) Alanine Aminotransferase (ALT) 21 U/L (16-63) Alkaline Phosphatase 63 U/L (46-116) Creatine Kinase 38 U/L (39-308) L Troponin I Quantitative 0.134 ng/mL (0-0.055) H 0.126 ng/mL (0-0.055) H TE-Xne-F-Type Natriuretic Peptide 110 pg/mL (0-124) Total Protein 7.3 g/dL (6.4-8.2) Albumin 3.5 g/dL (3.4-5.0) Lipase 59 U/L (73-393) L Thyroid Stimulating Hormone (TSH) 1.885 uIU/mL (0.358-3.740) Salicylates Level 6.2 mg/dL (2.8-20.0) Salicylate Last Dose Date Unknown Salicylate Last Dose Time Unknown Acetaminophen Level < 2.0 mcg/mL (10-30) L Acetaminophen Last Dose Date Unknown Acetaminophen Last Dose Time Unknown Ethyl Alcohol Level < 10 mg/dL (0-10) Urine Collection Type U cath Urine Color Yellow Urine Clarity Clear Urine pH 5.5 Urine Specific [place] 1.015 Urine Protein Neg (NEG-TRACE) Urine Glucose (UA) Neg mg/dL (NEG) Urine Ketones (Stick) Neg mg/dL (NEG) Urine Blood Small (NEG) Urine Nitrite Neg (NEG) Urine Bilirubin Neg (NEG) Urine Urobilinogen Dipstick 1 mg/dL (0.2 mg/dL) Urine Leukocyte Esterase Neg (NEG) Urine RBC 6-10 /HPF (0-2) Urine WBC Occ /HPF (0-4) Urine Squamous Epithelial Cells Few /LPF Urine Bacteria 0 /HPF (0-FEW) Urine Opiates Screen Pos (NEG) Urine Methadone Screen Neg (NEG) Urine Barbiturates Neg (NEG) Urine Phencyclidine Screen Neg (NEG) Urine Amphetamine/Methamphetamine Neg (NEG) Urine Benzodiazepines Screen Neg (NEG) Urine Cocaine Screen Neg (NEG) Urine Cannabinoids Screen Neg (NEG) Urine Ethyl Alcohol Neg (NEG) Lactic Acid Level 0.7 mmol/L (0.4-2.0) Procalcitonin < 0.10 ng/mL (0.00-0.10) Test 03/29/19 11:01 Troponin I Quantitative 0.129 ng/mL (0-0.055) H Current Medications: Meds: Current Medications Medications (Trade) Dose Ordered Sig/Vicki Route PRN Reason Start Time Stop Time Status Last Admin Dose Admin Lactated Ringer's 1,000 ml @ 1,000 mls/hr Q1H IV 03/28/19 22:00 03/28/19 22:59 DC 03/28/19 23:28 Potassium Chloride (Klor-Con) 40 meq 1X ONCE PO 03/29/19 00:15 03/29/19 00:16 DC 03/29/19 01:47 Potassium Chloride 100 ml @ 100 mls/hr Q1H IV 03/29/19 00:30 03/29/19 04:30 DC 03/29/19 05:49 Lactated Ringer's 1,000 ml @ 160 mls/hr Q6H15M IV 03/29/19 01:45 03/29/19 16:24 DC 03/29/19 01:55 Potassium Chloride (Klor-Con) 40 meq TIDWMEALS PO 03/29/19 08:00 03/29/19 17:12 Aspirin (Children'S Aspirin) 81 mg DAILY08 PO 03/29/19 08:00 03/29/19 08:47 Prednisone (Prednisone) 20 mg BID PO 03/29/19 09:00 03/29/19 16:40 DC 03/29/19 09:13 Gabapentin (Neurontin) 600 mg TID PO 03/29/19 09:00 03/29/19 14:46 Oxybutynin Chloride (Ditropan) 5 mg BID PO 03/29/19 09:00 03/29/19 09:13 Lactobacillus Rhamnosus (Culturelle) 1 cap BID PO 03/29/19 09:00 03/29/19 09:13 Celecoxib (CeleBREX) 200 mg DAILY PO 03/29/19 09:00 03/29/19 09:13 Potassium Chloride 100 ml @ 100 mls/hr Q1H IV 03/29/19 08:45 03/29/19 12:44 DC 03/29/19 16:31 I have reviewed the current psychotropics carefully including drug interactions. Risk benefit ratio favors no change other than as noted in my dictated progress note. Diagnosis: Problems: (1) Anxiety disorder (2) Dementia, vascular, with delusions (3) Dementia, vascular, with depression (4) Dementia in Alzheimer's disease with delusions (5) Dementia in Alzheimer's disease with depression (6) Major depressive disorder, recurrent episode (7) Impulse control disorder (8) Suicidal ideation SARA CEDEÑO MD Mar 29, 2019 18:15
[2019-03-29 19:33] VITALS: BP 174/67
[2019-03-29] MEDS: NYSTATIN/TRIAMCIN TOPICAL CREAM 15GM TUBE. TP SCH (21:00)
[2019-03-29] MEDS ORDERED: NON FORMULARY ITEM (Pravastatin Sodium 1 TAB) PO SCH (21:00)
[2019-03-29] MEDS: MIRTAZAPINE 15 MG TABLET PO SCH (21:20)
[2019-03-29] MEDS: MORPHINE IR 15 MG TABLET PO SCH (21:20)
[2019-03-29 23:03] VITALS: BP_SYST 140; BP_SYST 145; BP_DIAS 62; BP_DIAS 83
[2019-03-30] MEDS: IPRATRPIUM/ALBUTEROL 0.5/2.5MG 3 ML NEBU. NEB SCH (05:16)
[2019-03-30 05:46] VITALS: BP 117/65
[2019-03-30] MEDS: CELECOXIB 100 MG CAPSULE PO SCH (07:56)
[2019-03-30] MEDS: POTASSIUM CHLORIDE 20 MEQ TABLET.ER. PO SCH ×3 (07:56→17:05)
[2019-03-30] MEDS: LACTOBACILLUS RHAMNOSUS GG 1 CAPSULE. PO SCH ×2 (07:56→20:40)
[2019-03-30] MEDS: OXYBUTYNIN CHLORIDE 5 MG TABLET PO SCH ×2 (07:56→20:40)
[2019-03-30] MEDS: GABAPENTIN 300 MG CAPSULE. PO SCH ×3 (07:57→20:40)
[2019-03-30] MEDS: ASPIRIN 81 MG TAB.CHEW PO SCH (07:57)
[2019-03-30] MEDS: NYSTATIN/TRIAMCIN TOPICAL CREAM 15GM TUBE. TP SCH ×2 (07:58→20:38)
[2019-03-30 08:09] LABS: BASO # 0.1 x10^3/uL (0.0-0.2); BASO % 1 % (0-3); EOS # 0.2 x10^3/uL (0.0-0.7); EOS % 3 % (0-3); HEMATOCRIT 37.1 % (39.0-53.0); HEMOGLOBIN 12.3 g/dL (13.0-17.5); LYMPH # 1.3 x10^3/uL (1.0-4.8); LYMPH % 19 % (24-48); MEAN CORPUSCULAR HEMOGLOBIN 29 pg (25-35); MEAN CORPUSCULAR HGB CONC 33 g/dL (31-37); MEAN CORPUSCULAR VOLUME 88 fL (79-100); MONO # 0.9 x10^3/uL (0.0-1.1); MONO % 13 % (0-9); NEUT # 4.4 x10^3uL (1.8-7.7); NEUT % 64 % (31-73); PLATELET COUNT 199 x10^3/uL (140-400); RED BLOOD COUNT 4.22 x10^6/uL (4.30-5.70); RED CELL DISTRIBUTION WIDTH 14.2 % (11.5-14.5); WHITE BLOOD COUNT 6.9 x10^3/uL (4.0-11.0)
[2019-03-30 08:20] LABS: CALCIUM 8.8 mg/dL (8.5-10.1); CREATININE 0.6 mg/dL (0.7-1.3); GFR 133.6; POTASSIUM 3.4 mmol/L (3.5-5.1)
[2019-03-30 11:04] VITALS: BP 115/72
[2019-03-30] MEDS: ENOXAPARIN 40 MG/0.4 ML SYRINGE. SQ SCH (12:41)
[2019-03-30 14:28] VITALS: BP 138/78
--- NOTE | 2019-03-30 17:33 | PDOC ---
PROGRESS NOTES Diagnosis Problem Problems Medical Problems: (1) Hypokalemia Status: Acute (2) Suicidal ideation Status: Acute Assessment 1. Suicidal ideation: Treat per Psych team 2. Slight troponin elevation most probably demand ischemia. 2-D echo showed normal LV function without any wall motion abnormalities. Ischemic evaluation could be considered as an outpatient. 3. Hypokalemia: magnesium level within normal limits. Potassium level 3.4 after replacing orally and IV. Continue supplementation. 4. Hypertension: Controlled 5. Hyperlipidemia: Statins 6. Edema: Could be secondary to mild diastolic heart failure. Patient was on Lasix at home but was held on admission secondary to severe hypokalemia. We will resume this orally. Subjective patient feeling better today Objective Vital Signs Date Time Temp Pulse Resp B/P (MAP) Pulse Ox O2 Delivery O2 Flow Rate FiO2 03/30/19 14:28 97.2 63 20 138/78 (98) 94 Room Air Intake and Output 03/30/19 07:00 Intake Total 700 ml Output Total 675 ml Balance 25 ml Intake Oral 400 ml IV Total 300 ml Output Urine Total 675 ml # Voids 1 Abdomen: Soft, No tenderness Heart: Regular rate Extremities: Other (1-2+ pitting edema) General: Alert, No acute distress Lungs: Clear to auscultation Neck: Supple Psych/Mental Status: Mood NL Review of Relevant I have reviewed the following items johnathon (where applicable) has been applied. Labs Laboratory Tests Test 03/30/19 08:00 White Blood Count 6.9 x10^3/uL (4.0-11.0) Red Blood Count 4.22 x10^6/uL (4.30-5.70) L Hemoglobin 12.3 g/dL (13.0-17.5) L Hematocrit 37.1 % (39.0-53.0) L Mean Corpuscular Volume 88 fL (79-100) Mean Corpuscular Hemoglobin 29 pg (25-35) Mean Corpuscular Hemoglobin Concent 33 g/dL (31-37) Red Cell Distribution Width 14.2 % (11.5-14.5) Platelet Count 199 x10^3/uL (140-400) Neutrophils (%) (Auto) 64 % (31-73) Lymphocytes (%) (Auto) 19 % (24-48) L Monocytes (%) (Auto) 13 % (0-9) H Eosinophils (%) (Auto) 3 % (0-3) Basophils (%) (Auto) 1 % (0-3) Neutrophils # (Auto) 4.4 x10^3uL (1.8-7.7) Lymphocytes # (Auto) 1.3 x10^3/uL (1.0-4.8) Monocytes # (Auto) 0.9 x10^3/uL (0.0-1.1) Eosinophils # (Auto) 0.2 x10^3/uL (0.0-0.7) Basophils # (Auto) 0.1 x10^3/uL (0.0-0.2) Sodium Level 140 mmol/L (136-145) Potassium Level 3.4 mmol/L (3.5-5.1) L Chloride Level 101 mmol/L (98-107) Carbon Dioxide Level 31 mmol/L (21-32) Anion Gap 8 (6-14) Blood Urea Nitrogen 19 mg/dL (8-26) Creatinine 0.6 mg/dL (0.7-1.3) L Estimated GFR (Cockcroft-Gault) 133.6 Glucose Level 89 mg/dL (70-99) Calcium Level 8.8 mg/dL (8.5-10.1) Cortisol AM Sample 7.20 ug/dL (4.3-22.4) Medications Current Medications Medications (Trade) Dose Ordered Sig/Vicki Route PRN Reason Start Time Stop Time Status Last Admin Dose Admin Mirtazapine (Remeron) 15 mg QHS PO 03/29/19 21:00 03/29/19 21:20 Morphine Sulfate (Morphine Ir) 15 mg HS PO 03/29/19 21:00 03/29/19 21:20 Nystatin/ Triamcinolone Acetonide (Mycolog Ii) 1 namita BID TP 03/29/19 21:00 03/30/19 07:58 Enoxaparin Sodium (Lovenox 40mg Syringe) 40 mg Q24H SQ 03/30/19 12:30 03/30/19 12:45 Vitals/I & O Vital Signs Date Time Temp Pulse Resp B/P (MAP) Pulse Ox O2 Delivery O2 Flow Rate FiO2 03/30/19 14:28 97.2 63 20 138/78 (98) 94 Room Air I & O 03/29/19 03/29/19 03/30/19 15:00 23:00 07:00 Intake Total 300 ml 200 ml 200 ml Output Total 425 ml 250 ml Balance 300 ml -225 ml -50 ml PONCHO LÓPEZ MD Mar 30, 2019 17:33
--- NOTE | 2019-03-30 18:27 | PDOC ---
Exam Note: Luigi Note: Please also refer to the separate dictated note~for this date of service dictated separately.~Patient seen individually. Discussed the patient with Nursing staff reviewed the chart.~Reviewed interim history and current functioning. Reviewed vital signs,~Labs/ Radiology~and current medications noted below. Continue current treatment with the changes noted in the dictated addendum note Assessment: Vital Signs/I&O: Vital Signs Date Time Temp Pulse Resp B/P (MAP) Pulse Ox O2 Delivery O2 Flow Rate FiO2 03/30/19 14:28 97.2 63 20 138/78 (98) 94 Room Air I & O 03/29/19 03/29/19 03/30/19 15:00 23:00 07:00 Intake Total 300 ml 200 ml 200 ml Output Total 425 ml 250 ml Balance 300 ml -225 ml -50 ml Labs: Laboratory Tests Test 03/30/19 08:00 White Blood Count 6.9 x10^3/uL (4.0-11.0) Red Blood Count 4.22 x10^6/uL (4.30-5.70) L Hemoglobin 12.3 g/dL (13.0-17.5) L Hematocrit 37.1 % (39.0-53.0) L Mean Corpuscular Volume 88 fL (79-100) Mean Corpuscular Hemoglobin 29 pg (25-35) Mean Corpuscular Hemoglobin Concent 33 g/dL (31-37) Red Cell Distribution Width 14.2 % (11.5-14.5) Platelet Count 199 x10^3/uL (140-400) Neutrophils (%) (Auto) 64 % (31-73) Lymphocytes (%) (Auto) 19 % (24-48) L Monocytes (%) (Auto) 13 % (0-9) H Eosinophils (%) (Auto) 3 % (0-3) Basophils (%) (Auto) 1 % (0-3) Neutrophils # (Auto) 4.4 x10^3uL (1.8-7.7) Lymphocytes # (Auto) 1.3 x10^3/uL (1.0-4.8) Monocytes # (Auto) 0.9 x10^3/uL (0.0-1.1) Eosinophils # (Auto) 0.2 x10^3/uL (0.0-0.7) Basophils # (Auto) 0.1 x10^3/uL (0.0-0.2) Sodium Level 140 mmol/L (136-145) Potassium Level 3.4 mmol/L (3.5-5.1) L Chloride Level 101 mmol/L (98-107) Carbon Dioxide Level 31 mmol/L (21-32) Anion Gap 8 (6-14) Blood Urea Nitrogen 19 mg/dL (8-26) Creatinine 0.6 mg/dL (0.7-1.3) L Estimated GFR (Cockcroft-Gault) 133.6 Glucose Level 89 mg/dL (70-99) Calcium Level 8.8 mg/dL (8.5-10.1) Cortisol AM Sample 7.20 ug/dL (4.3-22.4) Current Medications: Meds: Current Medications Medications (Trade) Dose Ordered Sig/Vicki Route PRN Reason Start Time Stop Time Status Last Admin Dose Admin Mirtazapine (Remeron) 15 mg QHS PO 03/29/19 21:00 03/29/19 21:20 Morphine Sulfate (Morphine Ir) 15 mg HS PO 03/29/19 21:00 03/29/19 21:20 Nystatin/ Triamcinolone Acetonide (Mycolog Ii) 1 namita BID TP 03/29/19 21:00 03/30/19 07:58 Enoxaparin Sodium (Lovenox 40mg Syringe) 40 mg Q24H SQ 03/30/19 12:30 03/30/19 12:45 I have reviewed the current psychotropics carefully including drug interactions. Risk benefit ratio favors no change other than as noted in my dictated progress note. Diagnosis: Problems: (1) Dementia in Alzheimer's disease with delusions (2) Dementia in Alzheimer's disease with depression (3) Dementia, vascular, with delusions (4) Major depressive disorder, recurrent episode (5) Dementia, vascular, with depression (6) Impulse control disorder (7) Anxiety disorder SARA CEDEÑO MD Mar 30, 2019 18:27
[2019-03-30 19:24] VITALS: BP 132/70
[2019-03-30] MEDS: MIRTAZAPINE 15 MG TABLET PO SCH (20:40)
[2019-03-30] MEDS: MORPHINE IR 15 MG TABLET PO SCH (20:40)
--- NOTE | 2019-03-30 23:17 | CONS ---
DATE OF CONSULTATION: 03/29/2019 PSYCHIATRIC CONSULTATION This late entry, 03/29, covers the elements not covered in my initial note. IDENTIFYING DATA: The patient is a 68-year-old male, seen in bed 107, [facility], for a psychiatric consult requested by Dr. Cabello on account of the patient's worsening symptoms of depression with suicidal ideation and altered mental status. The patient was seen individually on evening of 03/29. Discussed with nursing staff, reviewed the chart, and reviewed records from the Emergency Room including notes by Dr. Bradley. CHIEF COMPLAINT: "Yes, I said that. No, I don't feel like that anymore. I have had a stroke and it gets frustrating. I am not depressed." HISTORY OF PRESENT ILLNESS: The patient was brought to the ER from his home and while in the ER, he made statements "God damn it. Yes, I said it. I was going to kill myself. What good am I. I cannot God damn walk or do anything. I am planning on cutting my God damn wrist and overdose on my God damn medications. I do not have any God damn reason to live. I am so God damn weak now, I cannot even get out God damn bed." The patient states he was frustrated with his status post CVA, but states the above statements were made in frustration rather than any thoughts of wanting to hurt himself. Nursing staff confirmed this as well. Reportedly, the patient had been threatening suicide at home. The patient has had decreasing mental abilities with worsening short term memory deficits. He had recently become very aggressive, threatening or attempting to strike family members. He is refusing to eat and take in fluids. He had been very difficult to redirect to get him to take his medications. He had multiple medical issues including CVA with secondary hydrocephalus. He is reportedly not a candidate for shunt. 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 Fuentes. He denies clear psychotic symptoms or symptoms of bipolar disorder. Minimizes memory deficits. PAST PSYCHIATRIC HISTORY: As noted above. PAST MEDICAL HISTORY: In addition to above, he has a history of bronchitis, coronary artery disease, status post CVA, hyperlipidemia, heart disease, hypertension, hydrocephalus. No alcohol or drug abuse history. CURRENT PSYCHOTROPICS: Negative. ALLERGIES: Negative. FAMILY HISTORY: Noncontributory. 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 Denies any alcohol or drug abuse. He lives at home with his and family is involved in his care. MENTAL STATUS EXAMINATION: The patient was seen individually on the evening of 03/29. He was somewhat confused about the date and stated it is 8 initially, but then looked at the calendar on the wall and was able to read back the correct year. He related that he had a CVA in 10/2017 and states his has been somewhat more handicapped herself because of her knee problems. He minimizes being depressed, but affect appears dysphoric. No clear psychotic symptoms. He currently denies current suicidal or homicidal ideation and there is no evidence of psychotic symptoms. He was unable to do any step of the serial sevens, able to spell water, forward with no error, backward, he was unable to spell at all. Attention span is short. Speech has some hesitancy with latency or responses consequent to his CVA. IMPRESSION: Major depressive disorder versus adjustment disorder with depressed mood and anxiety; mild cognitive impairment, rule out major neurocognitive disorder, early vascular with depression; anxiety disorder, unspecified. Rest diagnoses as above. RECOMMENDATIONS: From a psychiatric standpoint, I do feel the patient would benefit from being on SSRI agent. I would suggest starting him on Zoloft 50 mg a day increasing gradually as clinically indicated to a target dosage of about 100-150 mg a day. At this time, he denies active suicidal ideation. It would benefit for him to followup outpatient with psychotherapy at the [facility]. Dr. Cabello, thank you for the opportunity to participate in your patient's care. We will follow with you. This note covers the elements not covered in my initial note of 03/29. MAN Regis CEDEÑO MD DR: DANIA/katelynn JOB#: [id number] / [id number]
[2019-03-30 23:33] VITALS: BP 110/68
--- NOTE | 2019-03-31 00:48 | PN ---
DATE: 03/30/2019 SUBJECTIVE: The patient is resting comfortably in his chair, in no apparent distress. On questioning him, he denied any complaint, in particular denied any chest pain, shortness of breath, orthopnea, paroxysmal nocturnal dyspnea. His potassium is trending upward not back to normal, as of this morning, it was 3.4. PHYSICAL EXAMINATION: GENERAL: When I examined him, he looked well and was clearly in no apparent respiratory distress. No pallor, jaundice, cyanosis or thyromegaly. No jugular venous distention. No lower limb edema. VITAL SIGNS: His heart rate was 66, blood pressure 115/72, temperature was 97.9, respiratory rate 20, and oxygen saturation was 95%. HEAD, EYES, EARS, NOSE AND THROAT: Normocephalic, atraumatic. NECK: Supple. HEART: Showed normal first and second heart sounds with no gallop, rub or murmur. CHEST: Clear to auscultation. No crepitation or rhonchi. ABDOMEN: Distended, soft, nontender. No guarding or rigidity. No organomegaly. All hernial orifices intact. Bowel sounds normal. NEUROLOGIC: He is awake, alert, responding appropriately. All cranial nerves intact. He has left-sided hemiplegia. He is mostly bed bound, wheelchair bound. He can only stand, but cannot walk. His intake over the last 24 hours was 1390, output was 200. LABORATORY DATA: His lab work as of this morning showed a white cell count 6900, hemoglobin 12, hematocrit 37, MCV 88 and platelet count of 199,000. Serum sodium 140, potassium 3.4, chloride 101, bicarbonate 31, anion gap of 8, BUN 19, creatinine 0.6, estimated GFR was 133 mL per minute, his glucose was 89, calcium was 8.8. ASSESSMENT: 1. Generalized weakness, likely severe hypokalemia. His potassium is trending upward from 2.5-3.4 this morning, has right middle cerebral artery territory infarct, the left-sided hemiplegia. 2. Hypertension. 3. Hyperlipidemia. 4. Coronary artery disease. 5. Dementia and depression. PLAN: To continue to replenishing his potassium. Continue with physical and occupational therapy. Apparently, the family wanted to admit him to a senior care facility. ARTURO SHOEMAKER MD DR: Shirley JOB#: [id number] / [id number]
[2019-03-31 05:31] VITALS: BP 145/85
[2019-03-31 08:23] LABS: HEMATOCRIT 40.4 % (39.0-53.0); HEMOGLOBIN 13.5 g/dL (13.0-17.5); RED BLOOD COUNT 4.58 x10^6/uL (4.30-5.70); RED CELL DISTRIBUTION WIDTH 14.2 % (11.5-14.5); WHITE BLOOD COUNT 7.6 x10^3/uL (4.0-11.0)
[2019-03-31 08:41] LABS: ALBUMIN 3.2 g/dL (3.4-5.0); CALCIUM 8.7 mg/dL (8.5-10.1); CREATININE 0.7 mg/dL (0.7-1.3); GFR 111.8; POTASSIUM 4.3 mmol/L (3.5-5.1); TOTAL BILIRUBIN 0.6 mg/dL (0.2-1.0); TOTAL PROTEIN 6.4 g/dL (6.4-8.2)
[2019-03-31] MEDS: NYSTATIN/TRIAMCIN TOPICAL CREAM 15GM TUBE. TP SCH ×2 (09:00→21:00)
[2019-03-31] MEDS: FUROSEMIDE 20 MG TABLET PO SCH (10:02)
[2019-03-31] MEDS: ASPIRIN 81 MG TAB.CHEW PO SCH (10:03)
[2019-03-31] MEDS: LACTOBACILLUS RHAMNOSUS GG 1 CAPSULE. PO SCH ×2 (10:03→21:30)
[2019-03-31] MEDS: OXYBUTYNIN CHLORIDE 5 MG TABLET PO SCH ×2 (10:03→21:31)
[2019-03-31] MEDS: CELECOXIB 100 MG CAPSULE PO SCH (10:03)
[2019-03-31] MEDS: POTASSIUM CHLORIDE 20 MEQ TABLET.ER. PO SCH ×3 (10:03→17:00)
[2019-03-31] MEDS: GABAPENTIN 300 MG CAPSULE. PO SCH ×3 (10:03→21:31)
[2019-03-31 10:46] VITALS: BP 141/62
[2019-03-31] MEDS ORDERED: hydroCHLOROthiazide 25 MG TABLET PO SCH (12:30)
[2019-03-31] MEDS: NICOTINE 21MG PATCH. TD SCH (13:11)
[2019-03-31] MEDS: hydroCHLOROthiazide 25 MG TABLET PO SCH ×2 (13:11)
[2019-03-31] MEDS: SERTRALINE 50 MG TABLET. PO SCH (13:12)
[2019-03-31] MEDS: LOSARTAN 50 MG TABLET. PO SCH (13:12)
[2019-03-31] MEDS: ENOXAPARIN 40 MG/0.4 ML SYRINGE. SQ SCH (13:16)
[2019-03-31 15:38] VITALS: BP 142/84
--- NOTE | 2019-03-31 18:28 | PDOC ---
Exam Note: Luigi Note: Please also refer to the separate dictated note~for this date of service dictated separately.~Patient seen individually. Discussed the patient with Nursing staff reviewed the chart.~Reviewed interim history and current functioning. Reviewed vital signs,~Labs/ Radiology~and current medications noted below. Continue current treatment with the changes noted in the dictated addendum note Assessment: Vital Signs/I&O: Vital Signs Date Time Temp Pulse Resp B/P (MAP) Pulse Ox O2 Delivery O2 Flow Rate FiO2 03/31/19 15:38 97.6 63 20 142/84 (103) 94 Room Air I & O 03/30/19 03/30/19 03/31/19 15:00 23:00 07:00 Intake Total 480 ml 300 ml Output Total 300 ml 275 ml 100 ml Balance 180 ml -275 ml 200 ml Labs: Laboratory Tests Test 03/31/19 08:09 White Blood Count 7.6 x10^3/uL (4.0-11.0) Red Blood Count 4.58 x10^6/uL (4.30-5.70) Hemoglobin 13.5 g/dL (13.0-17.5) Hematocrit 40.4 % (39.0-53.0) Mean Corpuscular Volume 88 fL (79-100) Mean Corpuscular Hemoglobin 30 pg (25-35) Mean Corpuscular Hemoglobin Concent 33 g/dL (31-37) Red Cell Distribution Width 14.2 % (11.5-14.5) Platelet Count 177 x10^3/uL (140-400) Sodium Level 140 mmol/L (136-145) Potassium Level 4.3 mmol/L (3.5-5.1) Chloride Level 104 mmol/L (98-107) Carbon Dioxide Level 31 mmol/L (21-32) Anion Gap 5 (6-14) L Blood Urea Nitrogen 19 mg/dL (8-26) Creatinine 0.7 mg/dL (0.7-1.3) Estimated GFR (Cockcroft-Gault) 111.8 BUN/Creatinine Ratio 27 (6-20) H Glucose Level 90 mg/dL (70-99) Calcium Level 8.7 mg/dL (8.5-10.1) Total Bilirubin 0.6 mg/dL (0.2-1.0) Aspartate Amino Transferase (AST) 17 U/L (15-37) Alanine Aminotransferase (ALT) 23 U/L (16-63) Alkaline Phosphatase 60 U/L (46-116) Total Protein 6.4 g/dL (6.4-8.2) Albumin 3.2 g/dL (3.4-5.0) L Albumin/Globulin Ratio 1.0 (1.0-1.7) Current Medications: Meds: Current Medications Medications (Trade) Dose Ordered Sig/Vicki Route PRN Reason Start Time Stop Time Status Last Admin Dose Admin Furosemide (Lasix) 20 mg DAILY PO 03/31/19 09:00 03/31/19 10:04 Losartan Potassium (Cozaar) 100 mg DAILY PO 03/31/19 12:30 03/31/19 13:13 Sertraline HCl (Zoloft) 50 mg DAILY PO 03/31/19 12:30 03/31/19 13:13 Nicotine (Nicoderm Cq 21mg) 1 patch DAILY TD 03/31/19 12:30 03/31/19 13:13 Hydrochlorothiazide (Hydrodiuril) 25 mg DAILY PO 03/31/19 12:30 03/31/19 13:13 Hydrochlorothiazide (Hydrodiuril) 25 mg DAILY PO 03/31/19 12:30 03/31/19 13:13 I have reviewed the current psychotropics carefully including drug interactions. Risk benefit ratio favors no change other than as noted in my dictated progress note. Diagnosis: Problems: (1) Major depressive disorder, recurrent episode (2) Anxiety disorder (3) Dementia, vascular, with depression SARA CEDEÑO MD Mar 31, 2019 18:28
[2019-03-31 19:24] VITALS: BP 125/76
[2019-03-31] MEDS: MIRTAZAPINE 15 MG TABLET PO SCH (21:30)
[2019-03-31] MEDS: MORPHINE IR 15 MG TABLET PO SCH (21:31)
[2019-03-31 23:05] VITALS: BP 99/68
--- NOTE | 2019-04-01 00:04 | PN ---
DATE: 03/30/2019 PSYCHIATRIC PROGRESS NOTE This late entry date of service 03/30/2019 covers elements not covered in my initial note of 03/30/2019. SUBJECTIVE: I met with the patient evening of 03/30/2019. Per nursing report from [place] patient has done reasonably well. He denies any suicidal ideation, minimizes any depressive symptoms. Sleep and appetite are fair. REVIEW OF SYSTEMS: Positive for the tiredness but no CV, , pulmonary, eye system symptoms on review as I met with him individually in room 107. MENTAL STATUS EXAM: The patient is oriented to himself and situation. Speech often response is monosyllabic, has some latency. Abstraction fair, computation impaired, language function intact. Short term memory is impaired. He minimizes being depressed but affect appears somewhat dysphoric. No suicidal or homicidal ideation. LABORATORY DATA: Reviewed. IMPRESSION: Major depressive disorder, recurrent. Anxiety disorder, unspecified. Rest unchanged from previous note. PLAN: I discussed at length with the patient about starting antidepressants, but he is not agreeable to this. He does not feel he needs it. He will be going for [facility] and perhaps psychiatric followup can be done there to make a determination if he needs to be on antidepressants which I do believe would be helpful given his overall situation status post CVA and the circumstances that prompted his visit to the ER at this time. I will defer this, however, to the psychiatric consultation while in [facility] as the patient currently refuses any antidepressants. MAN Regis CEDEÑO MD DR: DANIA/katelynn JOB#: [id number] / [id number]
[2019-04-01 06:11] VITALS: BP 130/80
[2019-04-01 06:28] LABS: CALCIUM 8.6 mg/dL (8.5-10.1); CREATININE 0.8 mg/dL (0.7-1.3); GFR 95.8; POTASSIUM 3.4 mmol/L (3.5-5.1)
--- NOTE | 2019-04-01 08:10 | PDOC ---
CARDIO Progress Notes Date & Time Date of Service DATE: 04/01/19 TIME: 08:10 Time of Evaluation 08:10 Subjective Notes no chest pain, shortness of breath, dizziness, palpitations. Vitals Vitals Vital Signs Date Time Temp Pulse Resp B/P (MAP) Pulse Ox O2 Delivery O2 Flow Rate FiO2 04/01/19 06:11 98.1 62 20 130/80 (97) 95 Room Air Weight Weight [ ] Input and Output I.O. Intake and Output 04/01/19 07:00 Intake Total 1160 ml Output Total 1525 ml Balance -365 ml Intake Oral 1160 ml Output Urine Total 1525 ml # Voids 3 Laboratory Labs Laboratory Tests Test 03/31/19 08:09 04/01/19 05:52 White Blood Count 7.6 x10^3/uL (4.0-11.0) Red Blood Count 4.58 x10^6/uL (4.30-5.70) Hemoglobin 13.5 g/dL (13.0-17.5) Hematocrit 40.4 % (39.0-53.0) Mean Corpuscular Volume 88 fL (79-100) Mean Corpuscular Hemoglobin 30 pg (25-35) Mean Corpuscular Hemoglobin Concent 33 g/dL (31-37) Red Cell Distribution Width 14.2 % (11.5-14.5) Platelet Count 177 x10^3/uL (140-400) Sodium Level 140 mmol/L (136-145) 140 mmol/L (136-145) Potassium Level 4.3 mmol/L (3.5-5.1) 3.4 mmol/L (3.5-5.1) Chloride Level 104 mmol/L (98-107) 103 mmol/L (98-107) Carbon Dioxide Level 31 mmol/L (21-32) 30 mmol/L (21-32) Anion Gap 5 (6-14) 7 (6-14) Blood Urea Nitrogen 19 mg/dL (8-26) 21 mg/dL (8-26) Creatinine 0.7 mg/dL (0.7-1.3) 0.8 mg/dL (0.7-1.3) Estimated GFR (Cockcroft-Gault) 111.8 95.8 BUN/Creatinine Ratio 27 (6-20) Glucose Level 90 mg/dL (70-99) 86 mg/dL (70-99) Calcium Level 8.7 mg/dL (8.5-10.1) 8.6 mg/dL (8.5-10.1) Total Bilirubin 0.6 mg/dL (0.2-1.0) Aspartate Amino Transf (AST/SGOT) 17 U/L (15-37) Alanine Aminotransferase (ALT/SGPT) 23 U/L (16-63) Alkaline Phosphatase 60 U/L (46-116) Total Protein 6.4 g/dL (6.4-8.2) Albumin 3.2 g/dL (3.4-5.0) Albumin/Globulin Ratio 1.0 (1.0-1.7) Physical Exams HEENT: Neck Supple W Full Motion Chest: Symmetric Lungs: Clear to Auscultation Heart: S1S2, RRR Abdomen: Soft N/T Extremities: Other (trace bilateral LE edema ) Neurology: alert, oriented, follow commands Assessment Assessment 1. Suicidal ideation: Treat per Psych team 2. Slight troponin elevation most probably demand ischemia. 2-D echo showed normal LV function without any wall motion abnormalities. Will arrange for outpatient ischemic evaluation. 3. Hypokalemia: replacement ongoing. Check Mg level 4. Hypertension: Controlled 5. Hyperlipidemia: Statins 6. Edema; continue oral Lasix. KSENIA FONSECA APRN Apr 01, 2019 08:10
[2019-04-01] MEDS: SERTRALINE 50 MG TABLET. PO SCH (08:30)
[2019-04-01] MEDS: ASPIRIN 81 MG TAB.CHEW PO SCH (08:31)
[2019-04-01] MEDS: OXYBUTYNIN CHLORIDE 5 MG TABLET PO SCH (08:31)
[2019-04-01] MEDS: hydroCHLOROthiazide 25 MG TABLET PO SCH ×2 (08:31→08:35)
[2019-04-01] MEDS: LOSARTAN 50 MG TABLET. PO SCH (08:31)
[2019-04-01] MEDS: CELECOXIB 100 MG CAPSULE PO SCH (08:31)
[2019-04-01] MEDS: GABAPENTIN 300 MG CAPSULE. PO SCH ×2 (08:31→13:59)
[2019-04-01] MEDS: LACTOBACILLUS RHAMNOSUS GG 1 CAPSULE. PO SCH (08:31)
[2019-04-01] MEDS: FUROSEMIDE 20 MG TABLET PO SCH (08:32)
[2019-04-01] MEDS: POTASSIUM CHLORIDE 20 MEQ TABLET.ER. PO SCH ×2 (08:32→13:59)
[2019-04-01] MEDS: NICOTINE 21MG PATCH. TD SCH (08:36)
[2019-04-01] MEDS: NYSTATIN/TRIAMCIN TOPICAL CREAM 15GM TUBE. TP SCH (08:42)
--- NOTE | 2019-04-01 11:28 | PN ---
DATE: 03/31/2019 SUBJECTIVE: The patient is sitting comfortably in his chair, in no apparent respiratory distress. Awake, alert. Denied any complaint. He wanted to go home. We explained that he is scheduled to be discharged to a rehab center tomorrow for further strengthening before he can go home. He came here threatening suicide because he cannot do anything for himself. PHYSICAL EXAMINATION: GENERAL: When I examined him, he looked well and was clearly in no apparent respiratory distress. No pallor, jaundice, cyanosis or thyromegaly. No jugular venous distention. No lower limb edema. VITAL SIGNS: His heart rate was 64, blood pressure was 141/62, temperature was 97.5, respiratory rate 20, and oxygen saturation was 97% on room air. HEAD, EYES, EARS, NOSE AND THROAT: Normocephalic, atraumatic. NECK: Supple. HEART: Showed normal first and second heart sounds. No gallop, rub or murmur. CHEST: Clear to auscultation. No crepitation or rhonchi. ABDOMEN: Distended, soft, nontender. No guarding or rigidity. No organomegaly. All hernial orifice intact. Bowel sounds normal. NEUROLOGIC: He was awake, alert, responding appropriately. All cranial nerves are intact. He has left-sided hemiplegia, some dysarthria and fixed flexion of his left hand. His intake was 700, output was 675. LABORATORY DATA: His lab work this morning showed a white cell count 7600, hemoglobin 13.5, hematocrit 40, MCV 88 and platelet count of 177,000. His chemistry showed a serum sodium 140, potassium 4.3, chloride 104, bicarbonate 31, anion gap of 5, BUN 19, creatinine 0.7, estimated GFR was 111 mL per minute. His glucose was 90, calcium was 8.7. Total bilirubin, AST, ALT, alkaline phosphatase were normal. Total protein was 6.4, albumin was 3.2. His serum cortisol was 7.2. ASSESSMENT: 1. Generalized weakness, likely this is due to severe hypokalemia, resolving. His potassium is up now to 4.2. 2. He has right middle cerebral artery territory infarct with left-sided hemiplegia. 3. Hypertension. 4. Hyperlipidemia. 5. Coronary artery disease. 6. Dementia with depression. PLAN: To continue with monitoring his electrolyte. Continue with physical and occupational therapy. He will be [facility] to a [facility] facility to continue the process of rehabilitation. ARTURO SHOEMAKER MD DR: CIRA/katelynn JOB#: [id number] / [id number]
[2019-04-01 11:47] VITALS: BP 135/74
[2019-04-01] MEDS: ENOXAPARIN 40 MG/0.4 ML SYRINGE. SQ SCH (14:00)
--- NOTE | 2019-04-01 15:28 | DISCH ---
DISCHARGE ORDERS DISCHARGE DATE: Apr 01, 2019 FINAL DIAGNOSIS recurrent falls weakness and debility left sided hemiplegia CONDITION AT DISCHARGE: Stable Code Status: Full SNF STAY <30 DAYS: Yes POST DISCHARGE ORDERS: ACTIVITY ORDERS: Activity as tolerated WEIGHT BEARING STATUS: As tolerated DIET AFTER DISCHARGE: Regular TREATMENT/EQUIPMENT ORDERS: ADAPTIVE EQUIPMENT NEEDED: Wheelchair DISCHARGE MEDICATIONS: Home Meds Active Scripts Oxycodone Hcl/Acetaminophen (PERCOCET 7.5-325 MG TABLET ) 1 Each Tablet, 1 TAB PO Q6HRS for severe pain, #20 TAB Prov:BELA ALMAZAN DO 12/06/16 Reported Medications Furosemide (FUROSEMIDE) 20 Mg Tablet, 20 MG PO BID92 for FLUID RETENTION 03/29/19 Mirtazapine (MIRTAZAPINE) 15 Mg Tablet, 1 TAB PO QHS for depression, #30 TAB 3 Refills 03/29/19 Oxybutynin Chloride (OXYBUTYNIN CHLORIDE ER) 10 Mg Tab.er.24, 1 TAB PO DAILY for overactive bladder, #30 TAB 5 Refills 03/29/19 Potassium Chloride (POTASSIUM CHLORIDE) 10 Meq Tablet.er, 20 MEQ PO BIDWMEALS for POTASSIUM SUPPLEMENT 03/29/19 Gabapentin (GABAPENTIN) 600 Mg Tablet, 600 MG PO TID for NEUROGENIC PAIN, TAB 03/29/19 Celecoxib (CELEBREX) 200 Mg Capsule, 1 CAP PO DAILY for right flank pain, #30 CAP 2 Refills 03/29/19 Losartan/Hydrochlorothiazide (LOSARTAN-HCTZ 100-25 MG TAB) 1 Each Tablet, 1 TAB PO DAILY for hypertension, #30 TAB 5 Refills 03/29/19 Morphine Sulfate (MORPHINE SULFATE) 15 Mg Tablet, 15 MG PO HS for right flank pain, TAB 03/29/19 Pravastatin Sodium (PRAVASTATIN SODIUM) 80 Mg Tablet, 1 TAB PO QHS for hyperlipidemia, #90 TAB 1 Refill 03/29/19 Discontinued Reported Medications Hydrochlorothiazide (HYDROCHLOROTHIAZIDE TABLET ) 25 Mg Tablet, 25 MG PO DAILY for DIURETIC, TAB 0 Refills 03/29/19 ARTURO SHOEMAKER MD Apr 01, 2019 15:28
[2019-04-01 15:55] VITALS: BP 137/81
--- NOTE | 2019-04-02 00:10 | DS ---
DATE OF DISCHARGE: 04/01/2019 HOSPITAL COURSE: The patient is a 68-year-old male patient who was admitted through the Emergency Room with complaint of generalized weakness. He is unable to walk, unable to do anything for himself. He is always in bed. He is threatening suicide at home. The patient's family has stated that he has decreasing mental capabilities and may have dementia also. He became very aggressive in his behavior and the patient threatening attempt to strike family members. Anyhow, while here in the hospital, he seemed to be doing much better. He has been very cooperative and compliant with care and medication. He was evaluated by the physical therapist, and a decision was made to transfer him to [facility] to continue the process of rehabilitation before he obviously eventually goes to go home. PHYSICAL EXAMINATION: GENERAL: When I saw him today, he looked well and was clearly in no apparent respiratory distress. No pallor, jaundice, cyanosis or thyromegaly. No jugular venous distention. No limb edema. VITAL SIGNS: His heart rate was 62, blood pressure was 135/74, temperature was 97.6, respiratory rate was 20, and oxygen saturation was 93% on room air. HEAD, EYES, EARS, NOSE AND THROAT: Showed normocephalic, atraumatic. NECK: Supple. HEART: Showed normal first and second heart sounds, with no gallop or murmur. CHEST: Clear to auscultation. No crepitation or rhonchi. ABDOMEN: Distended, soft, nontender. No guarding or rigidity. No organomegaly. All hernial orifice intact. Bowel sounds normal. NEUROLOGIC: He is awake, alert, responding appropriately. He has mild dysarthria, but otherwise, all his other cranial nerves are intact. He has left-sided hemiparesis with fixed flexion contraction of his left hand fingers. He is mostly bed bound, wheelchair bound. His intake was 1160, output was 1525. LABORATORY DATA: His lab work showed a white cell count 7600, hemoglobin 13, hematocrit 40, MCV 88 and platelet count of 177,000. His prothrombin time was 9.9, INR of 1, and aPTT of 23. As of this morning, his serum sodium was 140, potassium 3.4, chloride 103, bicarbonate 30, anion gap of 7, BUN 21, creatinine 0.8, estimated GFR was 96 mL per minute. His glucose was 86. Calcium was 8.6. Urinalysis was unremarkable and toxic screen was positive for opiates. DISCHARGE MEDICATIONS: He was discharged to go on Celebrex 200 mg once a day, furosemide 20 mg twice a day, gabapentin 600 mg 3 times a day, losartan/hydrochlorothiazide 1 tablet daily, mirtazapine 50 mg at bedtime, morphine sulfate immediate release 15 mg at bedtime, oxybutynin chloride 10 mg once a day, oxycodone/APAP 7.5/325 one tablet every 6 hours, potassium chloride 20 mEq 3 times a day and pravastatin sodium 80 mg at bedtime. FINAL DISCHARGE DIAGNOSES: Hypertension, hyperlipidemia, right middle cerebral artery territory infarct, left side hemiplegia, hypokalemia, chronic bronchitis, coronary artery disease, dementia and depression. ARTURO SHOEMAKER MD DR: CIRA/katelynn JOB#: [id number] / [id number]
== END 2019-04-01 16:27 | DRG 641 ==
LOC: ER 20:00 → 1 SOUTH 03-29 02:46
PROVIDERS: ADMIT Family Medicine; ATTEND Internal Medicine
DX: E86.0 Dehydration (principal); F33.9 Major depressive disorder, recurrent, unspecified; R45.851 Suicidal ideations; I50.30 Unspecified diastolic (congestive) heart failure; G81.94 Hemiplegia, unspecified affecting left nondominant side; G91.9 Hydrocephalus, unspecified; E87.6 Hypokalemia; Z86.73 Personal history of transient ischemic attack (TIA), and cerebral infarction without residual deficits; F01.50 Vascular dementia, unspecified severity, without behavioral disturbance, psychotic disturbance, mood disturbance, and anxiety; F02.80 Dementia in other diseases classified elsewhere, unspecified severity, without behavioral disturbance, psychotic disturbance, mood disturbance, and anxiety; E78.5 Hyperlipidemia, unspecified; F41.9 Anxiety disorder, unspecified; G30.9 Alzheimer's disease, unspecified; F63.9 Impulse disorder, unspecified; I11.0 Hypertensive heart disease with heart failure; E78.00 Pure hypercholesterolemia, unspecified; F17.210 Nicotine dependence, cigarettes, uncomplicated; G93.89 Other specified disorders of brain; I25.10 Atherosclerotic heart disease of native coronary artery without angina pectoris; J42 Unspecified chronic bronchitis; Z79.899 Other long term (current) drug therapy; Z82.49 Family history of ischemic heart disease and other diseases of the circulatory system; Z83.3 Family history of diabetes mellitus
CPT/HCPCS: 36415; 70450; 71045; 80048; 80053; 80076; 80307; 80329; 81001; 82533; 82550; 83605; 83690; 83735; 83880; 84145; 84443; 84484; 85025; 85027; 85610; 85651; 85730; 93005; 93306; 96360; 96361; G0480; J1650; J3480; J7120; J7512; P9612; 82003; 97110; 97530; 97535; 99285-25

== ENCOUNTER 2019-05-25 22:33 | Inpatient (IN) | payer MEDICARE, BC ==
[~2019-05-25] VITALS: Ht 177.8 cm; Wt 130.9 kg
[~2019-05-25 22:33] MED LIST changes: +CELE200C PO; +FURO20TA3 PO; +GABA600T7 PO; +HYDR-2145 PO; +LOSA1TAB22 PO; +MIRT15TA3 PO; +MORP15TA PO; +OXYB10TA2 PO; +POTA10TA10 PO; +PRAV80TA2 PO
[2019-05-25 23:28] LABS: BASO # 0.1 x10^3/uL (0.0-0.2); BASO % 1 % (0-3); EOS # 0.6 x10^3/uL (0.0-0.7); EOS % 6 % (0-3); HEMATOCRIT 42.4 % (39.0-53.0); HEMOGLOBIN 14.2 g/dL (13.0-17.5); LYMPH # 1.5 x10^3/uL (1.0-4.8); LYMPH % 15 % (24-48); MEAN CORPUSCULAR HEMOGLOBIN 29 pg (25-35); MEAN CORPUSCULAR HGB CONC 34 g/dL (31-37); MEAN CORPUSCULAR VOLUME 87 fL (79-100); MONO # 1.1 x10^3/uL (0.0-1.1); MONO % 11 % (0-9); NEUT # 6.6 x10^3uL (1.8-7.7); NEUT % 67 % (31-73); PLATELET COUNT 282 x10^3/uL (140-400); RED BLOOD COUNT 4.85 x10^6/uL (4.30-5.70); RED CELL DISTRIBUTION WIDTH 14.3 % (11.5-14.5); WHITE BLOOD COUNT 9.8 x10^3/uL (4.0-11.0)
[2019-05-25 23:32] LABS: ALBUMIN 3.5 g/dL (3.4-5.0); ALBUMIN/GLOBULIN RATIO 0.8 (1.0-1.7); CALCIUM 9.6 mg/dL (8.5-10.1); CREATININE 0.8 mg/dL (0.7-1.3); GFR 95.8; MAGNESIUM 2.2 mg/dL (1.8-2.4); TOTAL BILIRUBIN 0.7 mg/dL (0.2-1.0); TOTAL PROTEIN 7.8 g/dL (6.4-8.2)
[2019-05-25 23:35] LABS: POTASSIUM 2.6 mmol/L (3.5-5.1)
[2019-05-25] MEDS ORDERED: POTASSIUM CHLORIDE 20MEQ 100 ML IV ONE (23:45)
[2019-05-25] MEDS ORDERED: POTASSIUM CHLORIDE 20 MEQ TABLET.ER. PO ONE (23:45)
--- NOTE | 2019-05-26 | PHYS DOC ---
Past History Past Medical History: Bronchitis, CAD, CVA, Dementia, Depression, High Cholesterol, Heart Disease, Hypertension, Other Past Surgical History: Other Additional Past Surgical Histo: Back stimulator Alcohol Use: None Drug Use: None Adult General Chief Complaint Chief Complaint: PSYCH EVALUATION HPI HPI Patient is a 68 year old male who presents to the emergency department for psychiatric evaluation. The patient was [facility]. Staff the jail note that the patient has been making inappropriate comments towards staff which is unusual for the patient. They do note history of dementia. The patient at this time denies any complaints. Appears to have poor insight into a vent set of taken place and appears to be a poor historian. No reported fever, fall, or other recent trauma. No other history available at time of initial evaluation. Review of Systems Review of Systems Caveat: Patient demented, poor historian Constitutional: Denies fever or chills [] Eyes: Denies change in visual acuity, redness, or eye pain [] HENT: Denies nasal congestion or sore throat [] Respiratory: Denies cough or shortness of breath [] Cardiovascular: Chronic lower extremity edema, denies chest pain[] GI: Denies abdominal pain, nausea, vomiting, bloody stools or diarrhea [] : Denies dysuria or hematuria [] Musculoskeletal: Denies back pain or joint pain [] Integument: Denies rash or skin lesions [] Neurologic: Denies headache, focal weakness or sensory changes [] All other systems were reviewed and found to be within normal limits, except as documented in this note. Current Medications Current Medications Current Medications Medications (Trade) Dose Ordered Sig/Vicki Start Time Stop Time Status Last Admin Dose Admin Potassium Chloride 100 ml @ 50 mls/hr 1X ONCE 05/25/19 23:45 05/26/19 01:44 UNV 05/25/19 23:48 50 MLS/HR Potassium Chloride (Klor-Con) 40 meq 1X ONCE 05/25/19 23:45 05/25/19 23:46 UNV 05/25/19 23:47 40 MEQ Allergies Allergies Allergies Coded Allergies Type Severity Reaction Last Updated Verified No Known Drug Allergies 12/06/16 No Physical Exam Physical Exam Constitutional: Alert, afebrile, no acute distress. [] HENT: Normocephalic, atraumatic, bilateral external ears normal, oropharynx moist, no oral exudates, nose normal. [] Eyes: PERRLA, EOMI, conjunctiva normal, no discharge. [] Neck: Normal range of motion, no tenderness, supple, no stridor. [] Cardiovascular:Heart rate regular rhythm, no murmur [] Lungs & Thorax: Bilateral breath sounds clear to auscultation [] Abdomen: Bowel sounds normal, soft, no tenderness, no masses, no pulsatile masses. [] Skin: Warm, dry, no erythema, no rash. [] Back: No tenderness, no CVA tenderness. [] Extremities: No tenderness, no cyanosis, no clubbing, ROM intact, 2+ pitting edema in the bilateral lower extremities. [] Neurologic: Alert, oriented to self and place, normal motor function, normal sensory function, no focal deficits noted. [] Current Patient Data Vital Signs Vital Signs Date Time Temp Pulse Resp B/P (MAP) Pulse Ox O2 Delivery O2 Flow Rate FiO2 05/25/19 23:53 71 14 123/73 (90) 95 Room Air 05/25/19 22:40 98.2 Lab Results Laboratory Tests Test 05/25/19 22:56 White Blood Count 9.8 x10^3/uL (4.0-11.0) Red Blood Count 4.85 x10^6/uL (4.30-5.70) Hemoglobin 14.2 g/dL (13.0-17.5) Hematocrit 42.4 % (39.0-53.0) Mean Corpuscular Volume 87 fL (79-100) Mean Corpuscular Hemoglobin 29 pg (25-35) Mean Corpuscular Hemoglobin Concent 34 g/dL (31-37) Red Cell Distribution Width 14.3 % (11.5-14.5) Platelet Count 282 x10^3/uL (140-400) Neutrophils (%) (Auto) 67 % (31-73) Lymphocytes (%) (Auto) 15 % (24-48) L Monocytes (%) (Auto) 11 % (0-9) H Eosinophils (%) (Auto) 6 % (0-3) H Basophils (%) (Auto) 1 % (0-3) Neutrophils # (Auto) 6.6 x10^3uL (1.8-7.7) Lymphocytes # (Auto) 1.5 x10^3/uL (1.0-4.8) Monocytes # (Auto) 1.1 x10^3/uL (0.0-1.1) Eosinophils # (Auto) 0.6 x10^3/uL (0.0-0.7) Basophils # (Auto) 0.1 x10^3/uL (0.0-0.2) Sodium Level 139 mmol/L (136-145) Potassium Level 2.6 mmol/L (3.5-5.1) *L Chloride Level 98 mmol/L (98-107) Carbon Dioxide Level 33 mmol/L (21-32) H Anion Gap 8 (6-14) Blood Urea Nitrogen 22 mg/dL (8-26) Creatinine 0.8 mg/dL (0.7-1.3) Estimated GFR (Cockcroft-Gault) 95.8 BUN/Creatinine Ratio 28 (6-20) H Glucose Level 107 mg/dL (70-99) H Calcium Level 9.6 mg/dL (8.5-10.1) Magnesium Level 2.2 mg/dL (1.8-2.4) Total Bilirubin 0.7 mg/dL (0.2-1.0) Aspartate Amino Transferase (AST) 17 U/L (15-37) Alanine Aminotransferase (ALT) 27 U/L (16-63) Alkaline Phosphatase 83 U/L (46-116) Total Protein 7.8 g/dL (6.4-8.2) Albumin 3.5 g/dL (3.4-5.0) Albumin/Globulin Ratio 0.8 (1.0-1.7) L EKG EKG Interpreted by me: Heart rate 73, sinus rhythm, prolonged OR interval, no acute ST/T-wave abnormalities present[] Radiology/Procedures Radiology/Procedures Not performed[] Course & Med Decision Making Course & Med Decision Making Pertinent Labs and Imaging studies reviewed. (See chart for details) The patient was found to have low potassium level of 2.6. This was treated with 40 mEq of oral potassium and 20 mEq of IV potassium. Recheck BMP shows potassium level at 3.2. At this time the patient has been medically cleared for psychiatric services. After contacting the jail and the [facility] here at [place], it was found out that the patient was already screened and accepted for admission to the senior behavioral health unit. Patient has been medically cleared in the emergency department and will be transported to the senior behavioral health unit in the [facility] under the care of Dr. Pascual.[] Dragbeatriz Disclaimer Dragon Disclaimer This electronic medical record was generated, in whole or in part, using a voice recognition dictation system. Departure Departure: Impression: Primary Impression: Medical clearance for psychiatric admission Additional Impressions: Hypokalemia Dementia Disposition: 65 XFER TO PSYCH HOSP/UNIT Admitting Physician: Other Condition: STABLE Referrals: PCP,UNKNOWN (PCP) Problem Qualifiers Additional Impressions: Dementia Dementia type: unspecified type Dementia behavioral disturbance: with behavioral disturbance Qualified Codes: F03.91 - Unspecified dementia with behavioral disturbance VERO SCOTT MD May 26, 2019 00:00
[2019-05-26 01:01] LABS: BILIRUBIN,URINE NEG (NEG); CLARITY,URINE CLEAR; COLOR,URINE YELLOW; GLUCOSE,URINE NEG (NEG); NITRITE,URINE NEG (NEG); UROBILINOGEN,URINE 4 mg/dL (0.2 mg/dL)
[2019-05-26 01:02] LABS: BACTERIA,URINE FEW /HPF (0-FEW); SQUAMOUS EPITHELIAL CELL,UR FEW /LPF
--- NOTE | 2019-05-26 01:57 | EKG ---
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
[2019-05-26 02:15] LABS: CALCIUM 9.1 mg/dL (8.5-10.1); CREATININE 0.7 mg/dL (0.7-1.3); GFR 111.8; POTASSIUM 3.2 mmol/L (3.5-5.1)
[2019-05-26] MEDS ORDERED: MAGNESIUM HYDROXIDE 2,400 MG/30 ML ORAL.SUSP. PO PRN (03:30)
[2019-05-26] MEDS ORDERED: ACETAMINOPHEN 325 MG TABLET PO PRN (03:30)
[2019-05-26] MEDS ORDERED: MAG HYDROX/AL HYDROX/SIMETH 30 ML ORAL.SUSP PO PRN (03:30)
[2019-05-26] MEDS ORDERED: METHYL SALICYLATE/MENTHOL TOPICAL OINTMENT 57GM TUBE. TP PRN (03:30)
[2019-05-26 04:08] VITALS: BP 141/86
[2019-05-26] MEDS ORDERED: NICO1PAT21 TD (04:09)
[2019-05-26] MEDS ORDERED: LACT1CAP6 PO (04:09)
[2019-05-26] MEDS ORDERED: MEMA10TA PO (04:09)
[2019-05-26] MEDS ORDERED: SERT50TA PO (04:09)
[2019-05-26] MEDS ORDERED: NYST15CR2 TP (04:09)
[2019-05-26] MEDS ORDERED: MULT-238 PO (04:09)
[2019-05-26] MEDS ORDERED: MAGN400O7 PO (04:09)
[2019-05-26] MEDS ORDERED: HYDR12.572 PO (04:09)
[2019-05-26] MEDS ORDERED: CYAN-25 PO (04:09)
[2019-05-26] MEDS ORDERED: oxyCODONE/APAP 7.5/325 1 TAB TABLET PO PRN (05:15)
[2019-05-26 05:58] VITALS: BP 103/75
[2019-05-26] MEDS ORDERED: oxyCODONE/APAP 7.5/325 1 TAB TABLET PO SCH (06:00)
[2019-05-26] MEDS: ASPIRIN 81 MG TAB.CHEW PO SCH (08:40)
[2019-05-26] MEDS: CELECOXIB 100 MG CAPSULE PO SCH (08:40)
[2019-05-26] MEDS: GABAPENTIN 300 MG CAPSULE. PO SCH ×3 (08:41→20:09)
[2019-05-26] MEDS: VENLAFAXINE XR 37.5 MG CAP.ER.24H. PO SCH (08:41)
[2019-05-26] MEDS ORDERED: hydroCHLOROthiazide 25 MG TABLET PO SCH (09:00)
[2019-05-26] MEDS ORDERED: NON FORMULARY ITEM (Losartan/Hydrochlorothiazide (Losartan-Hctz 100-25 Mg Tab) 1 TAB) PO SCH (09:00)
[2019-05-26] MEDS ORDERED: LOSARTAN 50 MG TABLET. PO SCH (09:00)
[2019-05-26] MEDS: NYSTATIN TOPICAL POWDER 15GM BOTTLE. TP SCH ×2 (10:45→20:10)
[2019-05-26 14:09] LABS: THYROID STIM HORMONE (TSH) 15.185 uIU/mL (0.358-3.740)
[2019-05-26 16:32] VITALS: BP 134/74
[2019-05-26] MEDS: MIRTAZAPINE 15 MG TABLET PO SCH (20:15)
[2019-05-26] MEDS: MORPHINE IR 15 MG TABLET PO SCH (20:15)
[2019-05-26 21:06] LABS: THYROXINE 8.4 ug/dL (4.5-12.0)
--- NOTE | 2019-05-26 22:03 | PDOC ---
Exam Note: Luigi Note: Please also refer to the separate dictated note~for this date of service dictated separately. Discussed the patient with Nursing staff reviewed the chart.~Reviewed interim history and current functioning. Reviewed vital signs,~Labs/ Radiology~and current medications noted below. Continue current treatment with the changes noted in the dictated addendum note Assessment: Vital Signs/I&O: Vital Signs Date Time Temp Pulse Resp B/P (MAP) Pulse Ox O2 Delivery O2 Flow Rate FiO2 05/26/19 21:36 93 05/26/19 16:32 98.0 70 18 134/74 (94) 05/26/19 02:41 Room Air Labs: Laboratory Tests Test 05/25/19 22:56 05/26/19 00:15 05/26/19 01:55 White Blood Count 9.8 x10^3/uL (4.0-11.0) Red Blood Count 4.85 x10^6/uL (4.30-5.70) Hemoglobin 14.2 g/dL (13.0-17.5) Hematocrit 42.4 % (39.0-53.0) Mean Corpuscular Volume 87 fL (79-100) Mean Corpuscular Hemoglobin 29 pg (25-35) Mean Corpuscular Hemoglobin Concent 34 g/dL (31-37) Red Cell Distribution Width 14.3 % (11.5-14.5) Platelet Count 282 x10^3/uL (140-400) Neutrophils (%) (Auto) 67 % (31-73) Lymphocytes (%) (Auto) 15 % (24-48) L Monocytes (%) (Auto) 11 % (0-9) H Eosinophils (%) (Auto) 6 % (0-3) H Basophils (%) (Auto) 1 % (0-3) Neutrophils # (Auto) 6.6 x10^3uL (1.8-7.7) Lymphocytes # (Auto) 1.5 x10^3/uL (1.0-4.8) Monocytes # (Auto) 1.1 x10^3/uL (0.0-1.1) Eosinophils # (Auto) 0.6 x10^3/uL (0.0-0.7) Basophils # (Auto) 0.1 x10^3/uL (0.0-0.2) Sodium Level 139 mmol/L (136-145) 138 mmol/L (136-145) Potassium Level 2.6 mmol/L (3.5-5.1) *L 3.2 mmol/L (3.5-5.1) L Chloride Level 98 mmol/L (98-107) 99 mmol/L (98-107) Carbon Dioxide Level 33 mmol/L (21-32) H 32 mmol/L (21-32) Anion Gap 8 (6-14) 7 (6-14) Blood Urea Nitrogen 22 mg/dL (8-26) 22 mg/dL (8-26) Creatinine 0.8 mg/dL (0.7-1.3) 0.7 mg/dL (0.7-1.3) Estimated GFR (Cockcroft-Gault) 95.8 111.8 BUN/Creatinine Ratio 28 (6-20) H Glucose Level 107 mg/dL (70-99) H 116 mg/dL (70-99) H Calcium Level 9.6 mg/dL (8.5-10.1) 9.1 mg/dL (8.5-10.1) Magnesium Level 2.2 mg/dL (1.8-2.4) Iron Level 52 ug/dL (65-175) L Total Iron Binding Capacity 242 ug/dL (250-450) L Iron Saturation 21 % (15-34) Total Bilirubin 0.7 mg/dL (0.2-1.0) Aspartate Amino Transferase (AST) 17 U/L (15-37) Alanine Aminotransferase (ALT) 27 U/L (16-63) Alkaline Phosphatase 83 U/L (46-116) Total Protein 7.8 g/dL (6.4-8.2) Albumin 3.5 g/dL (3.4-5.0) Albumin/Globulin Ratio 0.8 (1.0-1.7) L Triglycerides Level 90 mg/dL (0-150) Cholesterol Level 233 mg/dL (0-200) H LDL Cholesterol, Calculated 170 mg/dL (0-100) H VLDL Cholesterol, Calculated 18 mg/dL (0-40) Non-HDL Cholesterol Calculated 188 mg/dL (0-129) H HDL Cholesterol 45 mg/dL (40-60) Cholesterol/HDL Ratio 5.0 Thyroid Stimulating Hormone (TSH) 15.185 uIU/mL (0.358-3.740) Thyroxine (T4) 8.4 ug/dL (4.5-12.0) Total Triiodothyronine (TT3) 91 ng/dL (71-180) Urine Collection Type Unknown Urine Color Yellow Urine Clarity Clear Urine pH 7.0 Urine Specific [place] 1.020 Urine Protein Neg (NEG-TRACE) Urine Glucose (UA) Neg mg/dL (NEG) Urine Ketones (Stick) Neg mg/dL (NEG) Urine Blood Small (NEG) Urine Nitrite Neg (NEG) Urine Bilirubin Neg (NEG) Urine Urobilinogen Dipstick 4 mg/dL (0.2 mg/dL) Urine Leukocyte Esterase Trace (NEG) Urine RBC 1-2 /HPF (0-2) Urine WBC 1-4 /HPF (0-4) Urine Squamous Epithelial Cells Few /LPF Urine Bacteria Few /HPF (0-FEW) Current Medications: Meds: Current Medications Medications (Trade) Dose Ordered Sig/Vicki Route PRN Reason Start Time Stop Time Status Last Admin Dose Admin Potassium Chloride (Klor-Con) 40 meq 1X ONCE PO 05/25/19 23:45 05/26/19 02:33 DC 05/25/19 23:47 Potassium Chloride 100 ml @ 50 mls/hr 1X ONCE IV 05/25/19 23:45 05/26/19 02:33 DC 05/25/19 23:48 Celecoxib (CeleBREX) 200 mg DAILY PO 05/26/19 09:00 05/26/19 08:40 Morphine Sulfate (Morphine Ir) 15 mg HS PO 05/26/19 21:00 05/26/19 20:15 Gabapentin (Neurontin) 600 mg TID PO 05/26/19 09:00 05/26/19 20:09 Mirtazapine (Remeron) 15 mg QHS PO 05/26/19 21:00 05/26/19 20:15 Venlafaxine HCl (Effexor Xr) 75 mg DAILY PO 05/26/19 09:00 05/26/19 08:41 Aspirin (Children'S Aspirin) 81 mg DAILYWBKFT PO 05/26/19 08:00 05/26/19 08:40 Losartan Potassium (Cozaar) 100 mg DAILY PO 05/26/19 09:00 05/26/19 14:56 DC 05/26/19 08:40 Hydrochlorothiazide (Hydrodiuril) 25 mg DAILY PO 05/26/19 09:00 05/26/19 14:56 DC 05/26/19 08:41 Nystatin (Nystop) 1 namita BID TP 05/26/19 10:45 05/26/19 20:10 I have reviewed the current psychotropics carefully including drug interactions. Risk benefit ratio favors no change other than as noted in my dictated progress note. Diagnosis: Problems: (1) Anxiety disorder (2) Impulse control disorder (3) Major depressive disorder, recurrent episode (4) Dementia, vascular, with depression (5) Dementia, vascular, with delusions (6) Dementia in Alzheimer's disease with depression (7) Dementia in Alzheimer's disease with delusions SARA CEDEÑO MD May 26, 2019 22:03
--- NOTE | 2019-05-27 04:23 | CONS ---
DATE OF CONSULTATION: 05/26/2019 REASON FOR CONSULTATION: Consult for medical management. HISTORY OF PRESENT ILLNESS: The patient is a 68-year-old male patient, who was residing at [facility], who was brought to the Emergency Room for medical evaluation for admission to [facility]. The staff at the detention noted the patient has been making inappropriate comments towards the staff, which is unusual for the patient. They did note that he has dementia. The patient at this time denies any complaint and appears to have poor insight into the event that has taken place and appears to be a poor historian. He denied any fever, chills, fall or trauma. He was extensively evaluated and was found to have hypokalemia and dementia and was admitted to [facility] for inpatient psychiatric stabilization. He was admitted recently to [address] [place] [address] directly from home. At that time, he was threatening suicide. He was aggressive, threatening to stab his family members and refusing to eat and take fluid. He is very difficult to redirect and get him out of this and take his medication. PAST MEDICAL HISTORY: Significant for hypertension, hyperlipidemia, right middle cerebral artery territory infarct, and left side hemiplegia. He has also chronic hypokalemia. He is actually on potassium chloride 20 mEq twice a day. He is known to have chronic bronchitis, coronary artery disease, dementia and depression. PAST SURGICAL HISTORY: Unremarkable except what seemed to be coil embolization of intracerebral bleed or intracerebral aneurysm. ALLERGIES: He has no known drug allergies. FAMILY HISTORY: He has 2 brothers and 1 sister. His sister is older and currently in a detention and one brother because of myocardial infarction and the other has diabetes. Both parents are . SOCIAL HISTORY: He is and has no children of his own. He continued to smoke up to 2 packs a day. He does not drink alcohol or use recreational drugs. 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 MEDICATIONS: He is currently on following medication: He is on Nicoderm patch 21 mg transdermal topically once a day, losartan/hydrochlorothiazide 100/25 mg once a day, Celebrex 200 mg daily, morphine sulfate 50 mg at bedtime, oxycodone/APAP 7.5/325 one tablet every 6 hours, gabapentin 600 mg 3 times a day, mirtazapine 50 mg at bedtime, sertraline 50 mg daily, Namenda 5 mg daily, potassium chloride 20 mEq once a day, furosemide 20 mg daily, hydrochlorothiazide 12.5 mg once a day, lactobacillus acidophilus 1 capsule twice a day, magnesium hydroxide for milk of magnesia 30 mL p.o. daily p.r.n. for constipation, nystatin/triamcinolone cream applied topically twice a day, oxybutynin chloride 5 mg daily, cyanocobalamin 1000 mcg tablet once a day and multivitamin 1 tablet once a day. REVIEW OF SYSTEMS: As per history of present illness. PHYSICAL EXAMINATION GENERAL: When I examined him this afternoon, he was sitting comfortably in his wheelchair, in no apparent respiratory distress, slightly pale, no jaundice, cyanosis and thyromegaly. No jugular venous distention, but mild bilateral lower extremity edema. VITAL SIGNS: His heart rate is 74, blood pressure was 103/75, temperature is 98.5, respiratory rate was 20, and oxygen saturation was 94%. HEAD, EYES, EARS, NOSE AND THROAT: Normocephalic and atraumatic. NECK: Supple. HEART: Showed normal first and second heart sounds. No gallop, rub or murmur. CHEST: Clear to auscultation. No crepitation or rhonchi. ABDOMEN: Distended, soft and nontender. NEUROLOGIC: He is awake, alert and responding at times appropriately. All cranial nerves are intact. He has definitely left-sided hemiplegia. LABORATORY WORK: Showed a serum sodium 138, potassium 3.2, chloride 99, bicarbonate 32, anion gap of 7, BUN 22, creatinine 0.7 and estimated GFR was 111. Glucose was 116. Calcium was 9.1, serum iron was 52, TIBC was 242 and iron saturation was 21%. His total bilirubin, AST, ALT and alkaline phosphatase were normal. Total protein was 7.8 and albumin of 3.5. Serum triglycerides were 90, total cholesterol was 133, the LDL was 170, VLDL was 18, HDL cholesterol of 45 and the ratio was 5 and TSH was 15.185. His white cell count is 9800, hemoglobin 14, hematocrit 42, MCV 87 and platelet count 282,000 with normal manual differential. Urinalysis showed the urine was yellow, clear with the pH of 7, specific gravity of 1.020. The urine is negative for protein, glucose, ketones, and a small amount of blood, negative for nitrite and leukocyte esterase and no rbc's, no wbc's, and very few bacteria. IMPRESSION: In summary, this is a 68-year-old male patient, who was admitted on account of being sexually inappropriate, asking staff to touch his penis and help him get an erection, all this in a background of impulse control disorder. Medically, the patient has multiple medical problems including hypertension, hyperlipidemia, history of right middle cerebral artery territory infarct, the right-sided hemiplegia. He is mostly bed bound and wheelchair bound, however, all in all, the patient seemed to be medically stable. I will obviously follow all his lab works that are still pending at the time of this dictation and make any necessary recommendation. Thank you, Dr. Pascual for allowing me to participate in the care of this patient. ARTURO SHOEMAKER MD DR: CIRA/katelynn JOB#: [id number] / [id number]
[2019-05-27 06:37] VITALS: BP 104/79
[2019-05-27 08:13] LABS: HEMOGLOBIN A1C 5.5 % (4.8-5.6)
[2019-05-27] MEDS: CELECOXIB 100 MG CAPSULE PO SCH (11:39)
[2019-05-27] MEDS: VENLAFAXINE XR 37.5 MG CAP.ER.24H. PO SCH (11:39)
[2019-05-27] MEDS: GABAPENTIN 300 MG CAPSULE. PO SCH ×3 (11:39→19:57)
[2019-05-27] MEDS: ASPIRIN 81 MG TAB.CHEW PO SCH (11:39)
[2019-05-27] MEDS: NYSTATIN TOPICAL POWDER 15GM BOTTLE. TP SCH ×2 (11:40→19:55)
[2019-05-27] MEDS: DIVALPROEX 125 MG CAP.SPRINK PO SCH ×2 (13:42→16:42)
[2019-05-27 17:39] VITALS: BP 105/63
--- NOTE | 2019-05-27 18:10 | HP ---
ADMIT DATE: 05/26/2019 This late entry of date of service 05/26/2019 covers elements not covered in my initial note. IDENTIFYING DATA: I met with the patient in the evening of 05/26/2019. I discussed with nursing staff, reviewed the chart, also previously discussed the patient with Silvina Davis, academic support coordinator at [facility] after we received a referral from Dr. Allen, his primary care physician at [facility], and after the patient presented to the Emergency Room at [facility] on account of being irritable with periods of cursing, uncooperative, agitated behaviors, sexually inappropriate behaviors, trying to get staff members to touch his penis and asking staff to help him get an erection. He was trying to grab staff by the bottoms and trying to kiss staff. Behaviors had been escalating over the past week. I have been called on this by Winston clinical social worker at [facility] a couple of times over the past few weeks and was scheduled to go ahead will see the patient at the senior care later this month, but all of this came to ahead earlier on the day of admission on 05/26/2019, and he was sent directly to the Emergency Room at [facility] due to unmanageable behaviors. The patient was seen individually, discussed with nursing staff, reviewed the chart and also reviewed information from the patient's , which I have obtained prior to this dictation. The patient is extremely hard of hearing and has poor vision, and as a consequence of this, appears more confused than he truly is, and according to the , seems to remember all his family members despite his CVA. CHIEF COMPLAINT: "No." I met with the patient in his room at length in the evening of 05/26/2019 for this evaluation, but he is not very verbally interactive, somewhat withdrawn, appearing more confused than he really is. HISTORY OF PRESENT ILLNESS: The patient has a history of some short-term memory deficits, confusion, but significant amount of problems with impulse control, status post CVA. He has been sexually inappropriate with marked mood vacillation, sleep and appetite changes, and paranoia. No active suicidal or homicidal ideation. No clear history of bipolar disorder. UA was positive at the ER with possible UTI. Culture is awaited. PAST PSYCHIATRIC HISTORY: As above. MEDICAL HISTORY: Status post CVA, history of TIAs, hypertension, hyperlipidemia, and hydrocephalus. ACCU-CHEKS: None. DRUG ALLERGIES: Negative. CODE STATUS: Full code. DIET: Regular. CURRENT PSYCHOTROPICS: Effexor ER 75 mg a day, Remeron 15 mg at bedtime. FAMILY HISTORY: Noncontributory. 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 No alcohol or drug abuse, physical, sexual or elder abuse history is noted. Not known to be a perpetrator. REACTION TO HOSPITALIZATION: The patient is aware of this. ASSETS: Supportive family, stable, living at the senior care, though he may not be able to return there. MENTAL STATUS EXAMINATION: The patient was seen individually in the evening of 05/26/2016. He is withdrawn, extremely hard of hearing; I had to talk loudly into his ear. He refused to answer orientation questions. Speech is often responses monosyllabic. Abstraction fair, computation impaired, need to be reassessed later once he gets a hearing aid. Insight limited, judgment marginal, language function intact, hard of hearing with poor vision. No suicidal or homicidal ideation. LABORATORY DATA: Reviewed. IMPRESSION: Major depressive disorder, recurrent with rule out psychotic features; impulse control disorder; anxiety disorder, unspecified; mild cognitive impairment; possible urinary tract infection; hard of hearing; poor vision. Rest as above. PLAN: Admit to Geropsychiatry Unit at [facility]. I will see the patient daily individually from a psychiatric standpoint. Medical followup per Dr. Bowser. The patient's potassium is low. We will defer to Dr. Bowser and wait treatment for UTI post urine culture and sensitivity. Continue current psychotropics. Observe baseline. Consider starting Depakote as a mood stabilizer and for his impulse control problems. Estimated length of stay 10-12 days. DISCHARGE PLANS: To nursing facility at discharge. SARA CEDEÑO MD DR: DANIA/katelynn JOB#: [id number] / [id number]
[2019-05-27] MEDS: MIRTAZAPINE 15 MG TABLET PO SCH (19:55)
[2019-05-27] MEDS: MORPHINE IR 15 MG TABLET PO SCH (19:57)
--- NOTE | 2019-05-27 22:02 | PDOC ---
Exam Note: Luigi Note: Please also refer to the separate dictated note~for this date of service dictated separately.~Patient seen individually. Discussed the patient with Nursing staff reviewed the chart.~Reviewed interim history and current functioning. Reviewed vital signs,~Labs/ Radiology~and current medications noted below. Continue current treatment with the changes noted in the dictated addendum note Assessment: Vital Signs/I&O: Vital Signs Date Time Temp Pulse Resp B/P (MAP) Pulse Ox O2 Delivery O2 Flow Rate FiO2 05/27/19 21:59 100 05/27/19 17:39 97.9 78 16 105/63 (77) Room Air I & O 05/26/19 05/26/19 05/27/19 15:00 23:00 07:00 Intake Total 420 ml 0 ml Balance 420 ml 0 ml Current Medications: Meds: Current Medications Medications (Trade) Dose Ordered Sig/Vicki Route PRN Reason Start Time Stop Time Status Last Admin Dose Admin Divalproex Sodium (Depakote Sprinkles) 125 mg 0900,1300,1700 PO 05/27/19 13:00 05/27/19 16:42 I have reviewed the current psychotropics carefully including drug interactions. Risk benefit ratio favors no change other than as noted in my dictated progress note. Diagnosis: Problems: (1) Anxiety disorder (2) Impulse control disorder (3) Major depressive disorder, recurrent episode (4) Dementia, vascular, with depression (5) Dementia, vascular, with delusions (6) Dementia in Alzheimer's disease with depression (7) Dementia in Alzheimer's disease with delusions SARA CEDEÑO MD May 27, 2019 22:02
[2019-05-28 06:21] VITALS: BP 122/72
[2019-05-28] MEDS: GABAPENTIN 300 MG CAPSULE. PO SCH ×3 (08:55→19:39)
[2019-05-28] MEDS: DIVALPROEX 125 MG CAP.SPRINK PO SCH ×3 (08:55→17:17)
[2019-05-28] MEDS: CELECOXIB 100 MG CAPSULE PO SCH (08:55)
[2019-05-28] MEDS: ASPIRIN 81 MG TAB.CHEW PO SCH (08:56)
[2019-05-28] MEDS: VENLAFAXINE XR 37.5 MG CAP.ER.24H. PO SCH (08:56)
[2019-05-28] MEDS: MULTIVITAMIN with MINERAL TABLET. PO SCH (09:00)
[2019-05-28] MEDS: NICOTINE 7MG PATCH. TD SCH (09:00)
[2019-05-28] MEDS: ASCORBIC ACID 500 MG TABLET PO SCH (09:00)
[2019-05-28] MEDS: NYSTATIN TOPICAL POWDER 15GM BOTTLE. TP SCH ×2 (09:01→19:40)
--- NOTE | 2019-05-28 15:01 | PN ---
DATE: 05/27/2019 PSYCHIATRIC PROGRESS NOTE This note covers elements not covered in my initial note of 05/27. SUBJECTIVE: I met with the patient in the evening and staffed at treatment team meeting with the entire team in the morning, and the patient's attended the conference. We had a lengthy review of his history, and the relates that cognitively he has been reasonably intact despite the CVA and hydrocephalus. We will continue to assess this. She has brought hearing aids for him which would help, but the patient remains poor. REVIEW OF SYSTEMS: No CV, or pulmonary system symptoms on review. MENTAL STATUS EXAMINATION: Oriented to himself and situation. Speech moderate latency, often responses monosyllabic. Abstraction fair, computation impaired, language function intact. He remains intermittently sexually inappropriate, but not to the extent that was evident at the long-term. No suicidal or homicidal ideation. LABORATORY DATA: Reviewed. IMPRESSION: Unchanged from initial note. PLAN: Start Depakote Sprinkles 125 mg 9:00 a.m., 1:00 p.m., 5:00 p.m. for his mood disorder and impulse control disorder, status post cerebrovascular accident. Check CBC, CMP, valproic acid level, ammonia level in 3 days. Continue Effexor and Remeron along with Zyprexa p.r.n. Make further adjustments as clinically indicated. MAN Regis CEDEÑO MD DR: DANIA/katelynn JOB#: [id number] / [id number]
[2019-05-28 16:00] VITALS: BP 140/78
[2019-05-28] MEDS: MORPHINE IR 15 MG TABLET PO SCH (19:39)
[2019-05-28] MEDS: MIRTAZAPINE 15 MG TABLET PO SCH (19:39)
--- NOTE | 2019-05-28 21:56 | PDOC ---
Exam Note: Luigi Note: Please also refer to the separate dictated note~for this date of service dictated separately.~Patient seen individually. Discussed the patient with Nursing staff reviewed the chart.~Reviewed interim history and current functioning. Reviewed vital signs,~Labs/ Radiology~and current medications noted below. Continue current treatment with the changes noted in the dictated addendum note Assessment: Vital Signs/I&O: Vital Signs Date Time Temp Pulse Resp B/P (MAP) Pulse Ox O2 Delivery O2 Flow Rate FiO2 05/28/19 20:39 95 Room Air 05/28/19 16:00 97.2 70 18 140/78 (98) I & O 05/27/19 05/27/19 05/28/19 15:00 23:00 07:00 Intake Total 240 ml 120 ml 100 ml Balance 240 ml 120 ml 100 ml Current Medications: Meds: Current Medications Medications (Trade) Dose Ordered Sig/Vicki Route PRN Reason Start Time Stop Time Status Last Admin Dose Admin Nicotine (Nicoderm Cq 7mg) 1 patch DAILY TD 05/28/19 09:00 05/28/19 09:00 Ascorbic Acid (Vitamin C) 500 mg DAILY PO 05/28/19 09:00 05/28/19 09:00 Multivitamins/ Calcium (Thera-M Plus) 1 tab DAILY PO 05/28/19 09:00 05/28/19 09:00 I have reviewed the current psychotropics carefully including drug interactions. Risk benefit ratio favors no change other than as noted in my dictated progress note. Diagnosis: Problems: (1) Anxiety disorder (2) Impulse control disorder (3) Major depressive disorder, recurrent episode (4) Dementia, vascular, with depression (5) Dementia, vascular, with delusions (6) Dementia in Alzheimer's disease with depression (7) Dementia in Alzheimer's disease with delusions SARA CEDEÑO MD May 28, 2019 21:56
[2019-05-29 06:33] VITALS: BP 129/89
[2019-05-29] MEDS: VENLAFAXINE XR 37.5 MG CAP.ER.24H. PO SCH (08:10)
[2019-05-29] MEDS: GABAPENTIN 300 MG CAPSULE. PO SCH ×3 (08:10→19:31)
[2019-05-29] MEDS: MULTIVITAMIN with MINERAL TABLET. PO SCH (08:10)
[2019-05-29] MEDS: ASPIRIN 81 MG TAB.CHEW PO SCH (08:10)
[2019-05-29] MEDS: DIVALPROEX 125 MG CAP.SPRINK PO SCH ×3 (08:10→16:43)
[2019-05-29] MEDS: CELECOXIB 100 MG CAPSULE PO SCH (08:10)
[2019-05-29] MEDS: ASCORBIC ACID 500 MG TABLET PO SCH (08:11)
[2019-05-29] MEDS: NICOTINE 7MG PATCH. TD SCH (08:11)
[2019-05-29] MEDS: NYSTATIN TOPICAL POWDER 15GM BOTTLE. TP SCH ×2 (08:12→19:32)
[2019-05-29 16:18] VITALS: BP 137/77
[2019-05-29] MEDS: MORPHINE IR 15 MG TABLET PO SCH (19:31)
[2019-05-29] MEDS: POLYVINYL ALCOHOL 1.4% OPHTH SOLUTION 15ML BOTTLE. OU SCH (19:31)
[2019-05-29] MEDS: MIRTAZAPINE 15 MG TABLET PO SCH (19:32)
--- NOTE | 2019-05-29 21:16 | PN ---
DATE: 05/28/2019 PSYCHIATRIC PROGRESS NOTE This note covers elements not covered in my initial note, 05/28. SUBJECTIVE: I met with the patient in the evening. Per ____, RN, patient slept 6-1/4 hours previous night. He is quite hard of hearing, impaired ambulation in wheelchair, but not sexually inappropriate. He refused a nicotine patch, took the rest of his medications. When questioned, he knew the date and place, spends much time in the day room. He is not very verbally interactive with me, but was not wearing his hearing aid. REVIEW OF SYSTEMS: Ambulation impaired, in wheelchair, hard of hearing. No CV, , pulmonary, eye system symptoms on review. MENTAL STATUS EXAM: Reasonably oriented. Speech often responses monosyllabic. Abstraction fair, computation impaired, language function intact. Mood and affect withdrawn. LABORATORY DATA: Reviewed. IMPRESSION: Major depressive disorder, rule out psychotic features; major neurocognitive disorder, multifactorial secondary to hydrocephalus, Alzheimer's, vascular dementia with delusion, depression, behavioral disturbance. Rest unchanged. PLAN: Continue Depakote 125 mg 3 times a day. Check CBC, CMP, valproic acid level, ammonia level on the . Maintain Remeron, Effexor along with Zyprexa p.r.n. SARA CEDEÑO MD DR: DANIA/katelynn JOB#: [id number] / [id number]
--- NOTE | 2019-05-29 23:05 | PDOC ---
Exam Note: Luigi Note: Please also refer to the separate dictated note~for this date of service dictated separately.~Patient seen individually. Discussed the patient with Nursing staff reviewed the chart.~Reviewed interim history and current functioning. Reviewed vital signs,~Labs/ Radiology~and current medications noted below. Continue current treatment with the changes noted in the dictated addendum note Assessment: Vital Signs/I&O: Vital Signs Date Time Temp Pulse Resp B/P (MAP) Pulse Ox O2 Delivery O2 Flow Rate FiO2 05/29/19 20:37 16 98 Room Air 05/29/19 16:18 97.3 79 137/77 (97) I & O 05/28/19 05/28/19 05/29/19 14:59 22:59 06:59 Intake Total 720 ml 240 ml Balance 720 ml 240 ml Current Medications: Meds: Current Medications Medications (Trade) Dose Ordered Sig/Vicki Route PRN Reason Start Time Stop Time Status Last Admin Dose Admin Artificial Tears (Artificial Tears) 2 drop BID OU 05/29/19 21:00 05/29/19 19:31 I have reviewed the current psychotropics carefully including drug interactions. Risk benefit ratio favors no change other than as noted in my dictated progress note. Diagnosis: Problems: (1) Anxiety disorder (2) Impulse control disorder (3) Major depressive disorder, recurrent episode (4) Dementia, vascular, with depression (5) Dementia, vascular, with delusions (6) Dementia in Alzheimer's disease with depression (7) Dementia in Alzheimer's disease with delusions (8) Dementia (9) Medical clearance for psychiatric admission SARA CEDEÑO MD May 29, 2019 23:05
[2019-05-30 04:54] VITALS: BP 114/70
[2019-05-30 07:27] LABS: BASO # 0.1 x10^3/uL (0.0-0.2); BASO % 1 % (0-3); EOS # 0.7 x10^3/uL (0.0-0.7); EOS % 10 % (0-3); HEMATOCRIT 39.3 % (39.0-53.0); HEMOGLOBIN 12.8 g/dL (13.0-17.5); LYMPH # 1.1 x10^3/uL (1.0-4.8); LYMPH % 15 % (24-48); MEAN CORPUSCULAR HEMOGLOBIN 29 pg (25-35); MEAN CORPUSCULAR HGB CONC 33 g/dL (31-37); MEAN CORPUSCULAR VOLUME 88 fL (79-100); MONO # 0.9 x10^3/uL (0.0-1.1); MONO % 12 % (0-9); NEUT # 4.7 x10^3uL (1.8-7.7); NEUT % 63 % (31-73); PLATELET COUNT 229 x10^3/uL (140-400); RED BLOOD COUNT 4.48 x10^6/uL (4.30-5.70); RED CELL DISTRIBUTION WIDTH 14.1 % (11.5-14.5); WHITE BLOOD COUNT 7.6 x10^3/uL (4.0-11.0)
[2019-05-30 07:46] LABS: ALBUMIN 2.8 g/dL (3.4-5.0); ALBUMIN/GLOBULIN RATIO 0.7 (1.0-1.7); ALK PHOS 70 U/L (46-116); ALT (SGPT) 21 U/L (16-63); ANION GAP 5 (6-14); AST (SGOT) 16 U/L (15-37); BLOOD UREA NITROGEN 24 mg/dL (8-26); BUN/CREATININE RATIO 40 (6-20); CALCIUM 8.3 mg/dL (8.5-10.1); CARBON DIOXIDE 33 mmol/L (21-32); CHLORIDE 101 mmol/L (98-107); CREATININE 0.6 mg/dL (0.7-1.3); GFR 133.6; GLUCOSE 97 mg/dL (70-99); SODIUM 139 mmol/L (136-145); TOTAL BILIRUBIN 0.4 mg/dL (0.2-1.0); TOTAL PROTEIN 6.7 g/dL (6.4-8.2)
[2019-05-30] MEDS: NICOTINE 7MG PATCH. TD SCH (07:49)
[2019-05-30] MEDS: VENLAFAXINE XR 37.5 MG CAP.ER.24H. PO SCH (07:49)
[2019-05-30] MEDS: ASCORBIC ACID 500 MG TABLET PO SCH (07:50)
[2019-05-30] MEDS: CELECOXIB 100 MG CAPSULE PO SCH (07:50)
[2019-05-30] MEDS: MULTIVITAMIN with MINERAL TABLET. PO SCH (07:50)
[2019-05-30] MEDS: DIVALPROEX 125 MG CAP.SPRINK PO SCH ×3 (07:50→17:24)
[2019-05-30] MEDS: ASPIRIN 81 MG TAB.CHEW PO SCH (07:50)
[2019-05-30] MEDS: GABAPENTIN 300 MG CAPSULE. PO SCH ×3 (07:50→20:18)
[2019-05-30] MEDS: POLYVINYL ALCOHOL 1.4% OPHTH SOLUTION 15ML BOTTLE. OU SCH ×2 (07:51→20:58)
[2019-05-30] MEDS: NYSTATIN TOPICAL POWDER 15GM BOTTLE. TP SCH ×2 (07:52→20:58)
[2019-05-30 07:53] LABS: VAL ACID 14 mcg/mL (50-100)
[2019-05-30] MEDS: VITS A & D/LANOLIN TOPICAL OINTMENT 42GM TUBE. TP SCH ×2 (10:42→20:58)
[2019-05-30 16:19] VITALS: BP 118/71
[2019-05-30] MEDS: MIRTAZAPINE 15 MG TABLET PO SCH (20:17)
[2019-05-30] MEDS: MORPHINE IR 15 MG TABLET PO SCH (20:17)
--- NOTE | 2019-05-31 03:40 | PN ---
DATE: 05/30/2019 SUBJECTIVE: The patient was seen today, met with the staff, chart reviewed. Staff reports no major problems except that he is slow on wheelchair, also a fall risk. He has continued to be withdrawn, difficulty with comprehension and also significant hearing loss. OBSERVATION: VITAL SIGNS: Temperature 97.4, blood pressure 113/71, pulse 72, respiration 18, O2 sat 94%. Slept about 7 hours last night. The patient's appetite is fair. The patient is needing assistance with ADLs. The patient is difficult to redirect at times. MEDICATIONS: The patient's current medications include Depakote 125 mg t.i.d., mirtazapine 15 mg at night, venlafaxine 75 mg daily, gabapentin 600 mg t.i.d. The patient is also on olanzapine 2.5 mg q. 2 hours p.r.n. LABORATORY DATA: The patient's lab reviewed. BUN level 24, glucose 116, otherwise no major abnormalities. ASSESSMENT: Major depressive disorder, recurrent; cognitive impairment, anxiety disorder, unspecified. PLAN: To continue with the current treatment plan. JAYME CLAY MD DR: MARBELLA/katelynn JOB#: [id number] / [id number]
[2019-05-31 06:18] VITALS: BP 101/60
--- NOTE | 2019-05-31 07:33 | PN ---
DATE: 05/29/2019 PSYCHIATRIC PROGRESS NOTE This late entry 05/29/2019 covers elements not covered in my initial note. SUBJECTIVE: I met with the patient in the morning. The patient slept 8 hours previous night. The patient remains withdrawn, extremely hard of hearing. REVIEW OF SYSTEMS: Ambulation impaired, in wheelchair. No CV, , pulmonary, eye system symptoms on review. MENTAL STATUS EXAM: Oriented to himself and situation. Speech moderate latency, often responses monosyllabic. Abstraction fair, computation impaired, language function intact, attention span short. Mood and affect withdrawn. LABORATORY DATA: Reviewed. IMPRESSION: Major depressive disorder, recurrent, rule out psychotic features; impulse control disorder, psychotic disorder, unspecified; mild cognitive impairment. At initial presentation at admission, the patient appeared quite severely demented, but much of this was because of him being hard of hearing, which has since been rectified due to the hearing aids. PLAN: Continue psychotropics from initial note. Follow labs level on the Depakote on the and then adjust as clinically indicated. Dr. Morales will cover for me over the next few days during my vacation. MAN Regis CEDEÑO MD DR: DANIA/katelynn JOB#: [id number] / [id number]
[2019-05-31] MEDS: CELECOXIB 100 MG CAPSULE PO SCH (07:45)
[2019-05-31] MEDS: GABAPENTIN 300 MG CAPSULE. PO SCH ×3 (07:46→20:35)
[2019-05-31] MEDS: POLYVINYL ALCOHOL 1.4% OPHTH SOLUTION 15ML BOTTLE. OU SCH ×2 (07:47→20:39)
[2019-05-31] MEDS: VENLAFAXINE XR 37.5 MG CAP.ER.24H. PO SCH (07:47)
[2019-05-31] MEDS: ASCORBIC ACID 500 MG TABLET PO SCH (07:47)
[2019-05-31] MEDS: ASPIRIN 81 MG TAB.CHEW PO SCH (07:47)
[2019-05-31] MEDS: NICOTINE 7MG PATCH. TD SCH (07:47)
[2019-05-31] MEDS: MULTIVITAMIN with MINERAL TABLET. PO SCH (07:47)
[2019-05-31] MEDS: NYSTATIN TOPICAL POWDER 15GM BOTTLE. TP SCH ×2 (07:47→20:34)
[2019-05-31] MEDS: DIVALPROEX 125 MG CAP.SPRINK PO SCH ×3 (07:47→17:44)
[2019-05-31] MEDS: VITS A & D/LANOLIN TOPICAL OINTMENT 42GM TUBE. TP SCH ×2 (07:48→20:34)
[2019-05-31 16:42] VITALS: BP 136/84
[2019-05-31] MEDS: MORPHINE IR 15 MG TABLET PO SCH (20:35)
[2019-05-31] MEDS: MIRTAZAPINE 15 MG TABLET PO SCH (20:35)
[2019-05-31] MEDS: POTASSIUM CHLORIDE 20 MEQ TABLET.ER. PO SCH (20:35)
--- NOTE | 2019-06-01 01:23 | PN ---
DATE: 05/31/2019 SUBJECTIVE: The patient was seen today, met with the staff, chart reviewed. Staff reports no major behavior problems except for slow mentation and also decreased psychomotor activity. The patient is on wheelchair and is still a fall risk. OBSERVATION: VITAL SIGNS: Temperature 98.0, blood pressure 101/60, pulse 92, respirations 18, O2 sat 96%. Slept about 7 hours last night. The patient's appetite is fair. The patient's weight 322 pounds. MEDICATIONS: The patient's current medications include Depakote 125 mg t.i.d., mirtazapine 15 mg at night, venlafaxine 75 mg daily, gabapentin 600 mg t.i.d. p.o. The patient is also on olanzapine 2.5 mg q. 2 hours p.r.n. LABORATORY DATA: The patient's lab reviewed. ASSESSMENT: 1. Major depressive disorder, recurrent. 2. Cognitive impairment. 3. Anxiety disorder, unspecified. PLAN: Plan is to continue with the treatment. JAYME CLAY MD DR: MARBELLA/katelynn JOB#: [id number] / [id number]
[2019-06-01 06:08] VITALS: BP 123/72
[2019-06-01] MEDS: GABAPENTIN 300 MG CAPSULE. PO SCH ×3 (08:55→21:41)
[2019-06-01] MEDS: ASCORBIC ACID 500 MG TABLET PO SCH (08:55)
[2019-06-01] MEDS: VENLAFAXINE XR 37.5 MG CAP.ER.24H. PO SCH (08:55)
[2019-06-01] MEDS: ASPIRIN 81 MG TAB.CHEW PO SCH (08:55)
[2019-06-01] MEDS: DIVALPROEX 125 MG CAP.SPRINK PO SCH ×3 (08:55→18:03)
[2019-06-01] MEDS: CELECOXIB 100 MG CAPSULE PO SCH (08:55)
[2019-06-01] MEDS: POTASSIUM CHLORIDE 20 MEQ TABLET.ER. PO SCH ×3 (08:56→21:41)
[2019-06-01] MEDS: MULTIVITAMIN with MINERAL TABLET. PO SCH (08:56)
[2019-06-01] MEDS: NICOTINE 7MG PATCH. TD SCH (09:00)
[2019-06-01] MEDS: POLYVINYL ALCOHOL 1.4% OPHTH SOLUTION 15ML BOTTLE. OU SCH ×2 (09:00→21:00)
[2019-06-01] MEDS: VITS A & D/LANOLIN TOPICAL OINTMENT 42GM TUBE. TP SCH ×2 (09:34→21:41)
[2019-06-01] MEDS: NYSTATIN TOPICAL POWDER 15GM BOTTLE. TP SCH ×2 (09:34→21:41)
[2019-06-01 16:21] VITALS: BP 129/78
[2019-06-01] MEDS: MIRTAZAPINE 15 MG TABLET PO SCH (21:41)
[2019-06-01] MEDS: MORPHINE IR 15 MG TABLET PO SCH (21:41)
--- NOTE | 2019-06-02 05:43 | PN ---
DATE: 06/01/2019 SUBJECTIVE: The patient was seen today, met with the staff, chart reviewed. Staff reports some improvement, still withdrawn, on wheelchair and complains of swollen feet. The patient apparently has shown some improvement. He is more communicative, able to make eye contact, not exhibiting any major behavior problems. OBSERVATION: VITAL SIGNS: Temperature 97.9, blood pressure 123/72, pulse 100, respirations 18, O2 sat 95%. Slept about 7-1/2 hours last night. The patient's appetite improved. MEDICATIONS: The patient's current medications include Depakote 125 mg t.i.d., mirtazapine 15 mg at night, venlafaxine 75 mg daily, gabapentin 600 mg t.i.d. p.o. The patient is also on olanzapine 2.5 mg q. 2 hours p.r.n. LABORATORY DATA: The patient's lab reviewed. ASSESSMENT: 1. Major depressive disorder, recurrent. 2. Cognitive disorder, unspecified. 3. Anxiety disorder, unspecified. PLAN: To continue with the treatment. JAYME CLAY MD DR: MARBELLA/katelynn JOB#: [id number] / [id number]
[2019-06-02 05:58] VITALS: BP 141/81
[2019-06-02] MEDS: POLYVINYL ALCOHOL 1.4% OPHTH SOLUTION 15ML BOTTLE. OU SCH ×4 (08:02→20:18)
[2019-06-02] MEDS: ASPIRIN 81 MG TAB.CHEW PO SCH (08:02)
[2019-06-02] MEDS: DIVALPROEX 125 MG CAP.SPRINK PO SCH ×3 (08:03→17:20)
[2019-06-02] MEDS: CELECOXIB 100 MG CAPSULE PO SCH (08:03)
[2019-06-02] MEDS: POTASSIUM CHLORIDE 20 MEQ TABLET.ER. PO SCH ×3 (08:03→20:15)
[2019-06-02] MEDS: GABAPENTIN 300 MG CAPSULE. PO SCH ×3 (08:03→20:13)
[2019-06-02] MEDS: VENLAFAXINE XR 37.5 MG CAP.ER.24H. PO SCH (08:03)
[2019-06-02] MEDS: ASCORBIC ACID 500 MG TABLET PO SCH (08:04)
[2019-06-02] MEDS: MULTIVITAMIN with MINERAL TABLET. PO SCH (08:04)
[2019-06-02] MEDS: NICOTINE 7MG PATCH. TD SCH (08:04)
[2019-06-02] MEDS: NYSTATIN TOPICAL POWDER 15GM BOTTLE. TP SCH ×2 (09:00→20:12)
[2019-06-02] MEDS: VITS A & D/LANOLIN TOPICAL OINTMENT 42GM TUBE. TP SCH ×2 (09:00→20:12)
[2019-06-02 16:14] VITALS: BP 127/67
[2019-06-02] MEDS: MIRTAZAPINE 15 MG TABLET PO SCH (20:13)
[2019-06-02] MEDS: MORPHINE IR 15 MG TABLET PO SCH (20:14)
[2019-06-03 06:33] VITALS: BP 116/70
[2019-06-03 07:34] LABS: CALCIUM 8.4 mg/dL (8.5-10.1); CREATININE 0.5 mg/dL (0.7-1.3); GFR 164.9; POTASSIUM 4.6 mmol/L (3.5-5.1)
--- NOTE | 2019-06-03 08:32 | PN ---
DATE: 06/02/2019 SUBJECTIVE: The patient was seen today, met with the staff, chart reviewed. Staff reports some improvement, continues to focus on his physical problems, mainly concerned about swelling of his feet. The patient is also wanting to know when he could go home. The patient has not presented with any major behavior problems. The patient is currently accepting that he has created problems at the [facility] including being sexually inappropriate. The patient is aware of some of his behaviors prior to coming here and wanting to make changes for better. MEDICATIONS: Currently on Depakote 125 mg t.i.d., mirtazapine 15 mg at night, venlafaxine 75 mg daily, gabapentin 600 mg t.i.d. p.o. and also olanzapine 2.5 mg q. 2 hours p.r.n. ASSESSMENT: 1. Major depressive disorder, recurrent. 2. Cognitive disorder, unspecified. 3. Anxiety disorder, unspecified. PLAN: To continue with the treatment. JAYME CLAY MD DR: MARBELLA/katelynn JOB#: [id number] / [id number]
[2019-06-03] MEDS: ASPIRIN 81 MG TAB.CHEW PO SCH (08:33)
[2019-06-03] MEDS: POLYVINYL ALCOHOL 1.4% OPHTH SOLUTION 15ML BOTTLE. OU SCH ×2 (08:33→20:05)
[2019-06-03] MEDS: CELECOXIB 100 MG CAPSULE PO SCH (08:34)
[2019-06-03] MEDS: DIVALPROEX 125 MG CAP.SPRINK PO SCH ×3 (08:34→16:34)
[2019-06-03] MEDS: POTASSIUM CHLORIDE 20 MEQ TABLET.ER. PO SCH ×3 (08:34→20:06)
[2019-06-03] MEDS: NYSTATIN TOPICAL POWDER 15GM BOTTLE. TP SCH ×2 (08:35→20:06)
[2019-06-03] MEDS: NICOTINE 7MG PATCH. TD SCH (08:35)
[2019-06-03] MEDS: ASCORBIC ACID 500 MG TABLET PO SCH (08:35)
[2019-06-03] MEDS: VITS A & D/LANOLIN TOPICAL OINTMENT 42GM TUBE. TP SCH ×2 (08:35→20:06)
[2019-06-03] MEDS: MULTIVITAMIN with MINERAL TABLET. PO SCH (08:35)
[2019-06-03] MEDS: GABAPENTIN 300 MG CAPSULE. PO SCH ×3 (08:37→20:06)
[2019-06-03] MEDS: VENLAFAXINE XR 37.5 MG CAP.ER.24H. PO SCH (08:38)
[2019-06-03 16:19] VITALS: BP 138/73
[2019-06-03] MEDS: MIRTAZAPINE 15 MG TABLET PO SCH (20:06)
[2019-06-03] MEDS: MORPHINE IR 15 MG TABLET PO SCH (20:09)
[2019-06-04 06:04] VITALS: BP 138/76
--- NOTE | 2019-06-04 06:57 | PN ---
DATE: 06/03/2019 SUBJECTIVE: The patient was seen today, met with the staff, chart reviewed. The patient's behavior has improved except for his physical complaints. He is concerned about the swollen feet and upset that he is not getting the right treatment for him to decrease the swelling. The patient has not exhibited any other major behavior problems. OBSERVATION: VITAL SIGNS: Temperature 97.2, blood pressure 116/70, pulse 76, respirations 18, O2 sat 96%. GENERAL: Slept about 7 hours last night. The patient's appetite improved. MEDICATIONS: The patient's current medications include Depakote 125 mg t.i.d., mirtazapine 15 mg at night, venlafaxine 75 mg daily, gabapentin 600 mg t.i.d. and olanzapine 2.5 mg q. 2 hours p.r.n. The patient's lab reviewed. The patient is not having any side effects to medications. ASSESSMENT: 1. Major depressive disorder, recurrent. 2. Cognitive disorder, unspecified. 3. Anxiety disorder, unspecified. PLAN: To continue with the treatment. JAYME CLAY MD DR: MARBELLA/katelynn JOB#: [id number] / [id number]
[2019-06-04] MEDS: CHOLECALCIFEROL (VITAMIN D3) 50,000 UNIT CAPSULE PO SCH (08:31)
[2019-06-04] MEDS: DIVALPROEX 125 MG CAP.SPRINK PO SCH ×3 (08:31→17:13)
[2019-06-04] MEDS: ASPIRIN 81 MG TAB.CHEW PO SCH (08:32)
[2019-06-04] MEDS: GABAPENTIN 300 MG CAPSULE. PO SCH ×3 (08:32→21:00)
[2019-06-04] MEDS: VENLAFAXINE XR 37.5 MG CAP.ER.24H. PO SCH (08:32)
[2019-06-04] MEDS: CELECOXIB 100 MG CAPSULE PO SCH (08:33)
[2019-06-04] MEDS: POTASSIUM CHLORIDE 20 MEQ TABLET.ER. PO SCH ×3 (08:33→19:31)
[2019-06-04] MEDS: ASCORBIC ACID 500 MG TABLET PO SCH (08:33)
[2019-06-04] MEDS: NYSTATIN TOPICAL POWDER 15GM BOTTLE. TP SCH ×2 (08:34→19:31)
[2019-06-04] MEDS: MULTIVITAMIN with MINERAL TABLET. PO SCH (08:34)
[2019-06-04] MEDS: POLYVINYL ALCOHOL 1.4% OPHTH SOLUTION 15ML BOTTLE. OU SCH ×2 (09:00→19:31)
[2019-06-04] MEDS: NICOTINE 7MG PATCH. TD SCH (09:00)
[2019-06-04 17:13] VITALS: BP 146/71
[2019-06-04] MEDS: MORPHINE IR 15 MG TABLET PO SCH (19:31)
[2019-06-04] MEDS: MIRTAZAPINE 15 MG TABLET PO SCH (19:31)
--- NOTE | 2019-06-05 03:03 | PN ---
DATE: 06/04/2019 SUBJECTIVE: The patient was seen today, met with the staff, chart reviewed. The patient continues to upset with his feet swelling and also was seen by the wound care and the patient was started on the bandage for edema of lower extremities. Otherwise, the patient has shown some improvement. The patient continues to have difficulty with his concentration and thinking, also some evidence of confusion at times. The patient is also concrete with his thinking. OBSERVATION: VITAL SIGNS: Temperature 97.8, blood pressure 125/76, pulse 80, respirations 20, O2 sat 96%. Slept about 6 hours last night. The patient is not having any major medical issues. MEDICATIONS: The patient's current medications include Depakote 125 mg t.i.d., mirtazapine 15 mg at night, venlafaxine 75 mg daily, gabapentin 600 mg t.i.d. and olanzapine 2.5 mg q. 2 hours p.r.n. ASSESSMENT: 1. Major depressive disorder, recurrent. 2. Cognitive disorder, unspecified. 3. Anxiety disorder, unspecified. PLAN: To continue with the treatment. JAYME CLAY MD DR: MARBELLA/katelynn JOB#: [id number] / [id number]
[2019-06-05 05:19] VITALS: BP 125/73
[2019-06-05] MEDS: NICOTINE 7MG PATCH. TD SCH (08:08)
[2019-06-05] MEDS: POLYVINYL ALCOHOL 1.4% OPHTH SOLUTION 15ML BOTTLE. OU SCH ×2 (08:08→19:22)
[2019-06-05] MEDS: DIVALPROEX 125 MG CAP.SPRINK PO SCH ×3 (08:09→16:11)
[2019-06-05] MEDS: CELECOXIB 100 MG CAPSULE PO SCH (08:09)
[2019-06-05] MEDS: ASPIRIN 81 MG TAB.CHEW PO SCH (08:09)
[2019-06-05] MEDS: VENLAFAXINE XR 37.5 MG CAP.ER.24H. PO SCH (08:09)
[2019-06-05] MEDS: ASCORBIC ACID 500 MG TABLET PO SCH (08:10)
[2019-06-05] MEDS: POTASSIUM CHLORIDE 20 MEQ TABLET.ER. PO SCH ×3 (08:10→19:22)
[2019-06-05] MEDS: NYSTATIN TOPICAL POWDER 15GM BOTTLE. TP SCH ×2 (08:10→19:22)
[2019-06-05] MEDS: MULTIVITAMIN with MINERAL TABLET. PO SCH (08:10)
[2019-06-05] MEDS: GABAPENTIN 300 MG CAPSULE. PO SCH ×3 (08:10→19:22)
[2019-06-05 15:48] VITALS: BP 140/77
[2019-06-05] MEDS: MORPHINE IR 15 MG TABLET PO SCH (19:21)
[2019-06-05] MEDS: MIRTAZAPINE 15 MG TABLET PO SCH (19:22)
[2019-06-06 07:17] VITALS: BP 136/76
[2019-06-06 07:29] LABS: BASO # 0.1 x10^3/uL (0.0-0.2); BASO % 1 % (0-3); EOS # 0.6 x10^3/uL (0.0-0.7); EOS % 8 % (0-3); HEMATOCRIT 35.9 % (39.0-53.0); LYMPH # 1.2 x10^3/uL (1.0-4.8); LYMPH % 16 % (24-48); MEAN CORPUSCULAR HEMOGLOBIN 30 pg (25-35); MEAN CORPUSCULAR HGB CONC 33 g/dL (31-37); MEAN CORPUSCULAR VOLUME 89 fL (79-100); MONO # 0.9 x10^3/uL (0.0-1.1); MONO % 12 % (0-9); NEUT # 4.5 x10^3uL (1.8-7.7); NEUT % 62 % (31-73); PLATELET COUNT 261 x10^3/uL (140-400); RED BLOOD COUNT 4.06 x10^6/uL (4.30-5.70); RED CELL DISTRIBUTION WIDTH 14.4 % (11.5-14.5); WHITE BLOOD COUNT 7.2 x10^3/uL (4.0-11.0)
[2019-06-06 07:34] LABS: ALBUMIN 2.8 g/dL (3.4-5.0); ALBUMIN/GLOBULIN RATIO 0.7 (1.0-1.7); CALCIUM 8.8 mg/dL (8.5-10.1); CREATININE 0.5 mg/dL (0.7-1.3); GFR 164.9; POTASSIUM 4.3 mmol/L (3.5-5.1); TOTAL BILIRUBIN 0.3 mg/dL (0.2-1.0); TOTAL PROTEIN 6.8 g/dL (6.4-8.2)
[2019-06-06 07:59] LABS: VAL ACID 8 mcg/mL (50-100)
[2019-06-06] MEDS: GABAPENTIN 300 MG CAPSULE. PO SCH ×3 (08:06→20:52)
[2019-06-06] MEDS: ASCORBIC ACID 500 MG TABLET PO SCH (08:07)
[2019-06-06] MEDS: CELECOXIB 100 MG CAPSULE PO SCH (08:07)
[2019-06-06] MEDS: DIVALPROEX 125 MG CAP.SPRINK PO SCH ×3 (08:07→17:20)
[2019-06-06] MEDS: MULTIVITAMIN with MINERAL TABLET. PO SCH (08:07)
[2019-06-06] MEDS: POTASSIUM CHLORIDE 20 MEQ TABLET.ER. PO SCH ×3 (08:08→20:53)
[2019-06-06] MEDS: NICOTINE 7MG PATCH. TD SCH (08:08)
[2019-06-06] MEDS: ASPIRIN 81 MG TAB.CHEW PO SCH (08:08)
[2019-06-06] MEDS: VENLAFAXINE XR 37.5 MG CAP.ER.24H. PO SCH (08:09)
[2019-06-06] MEDS: POLYVINYL ALCOHOL 1.4% OPHTH SOLUTION 15ML BOTTLE. OU SCH ×2 (08:16→20:53)
[2019-06-06] MEDS: NYSTATIN TOPICAL POWDER 15GM BOTTLE. TP SCH ×2 (14:24→21:36)
[2019-06-06 15:44] VITALS: BP 138/75
--- NOTE | 2019-06-06 18:29 | PN ---
DATE: 06/06/2019 SUBJECTIVE: The patient apparently making progress. The patient's behavior has improved. The patient is participating in all the activities. The patient is no longer complaining about his swallowing throat, apparently is getting treatment. The patient has not exhibited any inappropriate sexual behaviors. OBSERVATION: VITAL SIGNS: Temperature 97.3, blood pressure 136/76, pulse 76, respiration 18, O2 sat 98%. Slept about 8 hours last night. The patient's appetite has improved. MEDICATIONS: The patient's current medications include Depakote 125 mg t.i.d., mirtazapine 15 mg at night, venlafaxine 75 mg daily, gabapentin 600 mg t.i.d. and olanzapine 2.5 mg q. 2 hours p.r.n. ASSESSMENT: 1. Major depressive disorder, recurrent. 2. Cognitive disorder, unspecified. 3. Anxiety disorder, unspecified. PLAN: To continue with the treatment. JAYME CLAY MD DR: MARBELLA/katelynn JOB#: [id number] / [id number]
[2019-06-06] MEDS: MORPHINE IR 15 MG TABLET PO SCH (20:52)
[2019-06-06] MEDS: MIRTAZAPINE 15 MG TABLET PO SCH (20:53)
--- NOTE | 2019-06-06 22:34 | PDOC ---
Exam Note: Luigi Note: Please also refer to the separate dictated note~for this date of service dictated separately.~Patient seen individually. Discussed the patient with Nursing staff reviewed the chart.~Reviewed interim history and current functioning. Reviewed vital signs,~Labs/ Radiology~and current medications noted below. Continue current treatment with the changes noted in the dictated addendum note Assessment: Vital Signs/I&O: Vital Signs Date Time Temp Pulse Resp B/P (MAP) Pulse Ox O2 Delivery O2 Flow Rate FiO2 06/06/19 15:44 97.8 76 16 138/75 (96) 96 06/05/19 21:00 Room Air I & O 06/05/19 06/05/19 06/06/19 15:00 23:00 07:00 Intake Total 960 ml 240 ml Balance 960 ml 240 ml Labs: Laboratory Tests Test 06/06/19 07:12 White Blood Count 7.2 x10^3/uL (4.0-11.0) Red Blood Count 4.06 x10^6/uL (4.30-5.70) L Hemoglobin 12.0 g/dL (13.0-17.5) L Hematocrit 35.9 % (39.0-53.0) L Mean Corpuscular Volume 89 fL (79-100) Mean Corpuscular Hemoglobin 30 pg (25-35) Mean Corpuscular Hemoglobin Concent 33 g/dL (31-37) Red Cell Distribution Width 14.4 % (11.5-14.5) Platelet Count 261 x10^3/uL (140-400) Neutrophils (%) (Auto) 62 % (31-73) Lymphocytes (%) (Auto) 16 % (24-48) L Monocytes (%) (Auto) 12 % (0-9) H Eosinophils (%) (Auto) 8 % (0-3) H Basophils (%) (Auto) 1 % (0-3) Neutrophils # (Auto) 4.5 x10^3uL (1.8-7.7) Lymphocytes # (Auto) 1.2 x10^3/uL (1.0-4.8) Monocytes # (Auto) 0.9 x10^3/uL (0.0-1.1) Eosinophils # (Auto) 0.6 x10^3/uL (0.0-0.7) Basophils # (Auto) 0.1 x10^3/uL (0.0-0.2) Sodium Level 142 mmol/L (136-145) Potassium Level 4.3 mmol/L (3.5-5.1) Chloride Level 107 mmol/L (98-107) Carbon Dioxide Level 31 mmol/L (21-32) Anion Gap 4 (6-14) L Blood Urea Nitrogen 18 mg/dL (8-26) Creatinine 0.5 mg/dL (0.7-1.3) L Estimated GFR (Cockcroft-Gault) 164.9 BUN/Creatinine Ratio 36 (6-20) H Glucose Level 88 mg/dL (70-99) Calcium Level 8.8 mg/dL (8.5-10.1) Total Bilirubin 0.3 mg/dL (0.2-1.0) Aspartate Amino Transferase (AST) 16 U/L (15-37) Alanine Aminotransferase (ALT) 22 U/L (16-63) Alkaline Phosphatase 66 U/L (46-116) Total Protein 6.8 g/dL (6.4-8.2) Albumin 2.8 g/dL (3.4-5.0) L Albumin/Globulin Ratio 0.7 (1.0-1.7) L Valproic Acid Level 8 mcg/mL (50-100) L Valproic Acid Last Dose Date 06/05/19 Valproic Acid Last Dose Time 1700 Current Medications: I have reviewed the current psychotropics carefully including drug interactions. Risk benefit ratio favors no change other than as noted in my dictated progress note. Diagnosis: Problems: (1) Anxiety disorder (2) Impulse control disorder (3) Major depressive disorder, recurrent episode (4) Dementia, vascular, with depression (5) Dementia, vascular, with delusions (6) Dementia in Alzheimer's disease with depression (7) Dementia in Alzheimer's disease with delusions SARA CEDEÑO MD Jun 06, 2019 22:34
--- NOTE | 2019-06-07 04:13 | PDOC ---
Exam Note: Luigi Note: Note: Dr. Cedeño was to see the patient on 06/06/[address] Chung continued coverage on the patient for 06/06/2019 and the note written was an error and should be disregarded. Please also refer to the separate dictated note~for this date of service dictated separately.~Patient seen individually. Discussed the patient with Nursing staff reviewed the chart.~Reviewed interim history and current functioning. Reviewed vital signs,~Labs/ Radiology~and current medications noted below. Continue current treatment with the changes noted in the dictated addendum note Assessment: Vital Signs/I&O: Vital Signs Date Time Temp Pulse Resp B/P (MAP) Pulse Ox O2 Delivery O2 Flow Rate FiO2 06/06/19 15:44 97.8 76 16 138/75 (96) 96 06/05/19 21:00 Room Air I & O 06/06/19 06/06/19 06/07/19 15:00 23:00 07:00 Intake Total 720 ml 480 ml 100 ml Balance 720 ml 480 ml 100 ml Labs: Laboratory Tests Test 06/06/19 07:12 White Blood Count 7.2 x10^3/uL (4.0-11.0) Red Blood Count 4.06 x10^6/uL (4.30-5.70) L Hemoglobin 12.0 g/dL (13.0-17.5) L Hematocrit 35.9 % (39.0-53.0) L Mean Corpuscular Volume 89 fL (79-100) Mean Corpuscular Hemoglobin 30 pg (25-35) Mean Corpuscular Hemoglobin Concent 33 g/dL (31-37) Red Cell Distribution Width 14.4 % (11.5-14.5) Platelet Count 261 x10^3/uL (140-400) Neutrophils (%) (Auto) 62 % (31-73) Lymphocytes (%) (Auto) 16 % (24-48) L Monocytes (%) (Auto) 12 % (0-9) H Eosinophils (%) (Auto) 8 % (0-3) H Basophils (%) (Auto) 1 % (0-3) Neutrophils # (Auto) 4.5 x10^3uL (1.8-7.7) Lymphocytes # (Auto) 1.2 x10^3/uL (1.0-4.8) Monocytes # (Auto) 0.9 x10^3/uL (0.0-1.1) Eosinophils # (Auto) 0.6 x10^3/uL (0.0-0.7) Basophils # (Auto) 0.1 x10^3/uL (0.0-0.2) Sodium Level 142 mmol/L (136-145) Potassium Level 4.3 mmol/L (3.5-5.1) Chloride Level 107 mmol/L (98-107) Carbon Dioxide Level 31 mmol/L (21-32) Anion Gap 4 (6-14) L Blood Urea Nitrogen 18 mg/dL (8-26) Creatinine 0.5 mg/dL (0.7-1.3) L Estimated GFR (Cockcroft-Gault) 164.9 BUN/Creatinine Ratio 36 (6-20) H Glucose Level 88 mg/dL (70-99) Calcium Level 8.8 mg/dL (8.5-10.1) Total Bilirubin 0.3 mg/dL (0.2-1.0) Aspartate Amino Transferase (AST) 16 U/L (15-37) Alanine Aminotransferase (ALT) 22 U/L (16-63) Alkaline Phosphatase 66 U/L (46-116) Total Protein 6.8 g/dL (6.4-8.2) Albumin 2.8 g/dL (3.4-5.0) L Albumin/Globulin Ratio 0.7 (1.0-1.7) L Valproic Acid Level 8 mcg/mL (50-100) L Valproic Acid Last Dose Date 06/05/19 Valproic Acid Last Dose Time 1700 Current Medications: I have reviewed the current psychotropics carefully including drug interactions. Risk benefit ratio favors no change other than as noted in my dictated progress note. 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
[2019-06-07 06:19] VITALS: BP 130/74
[2019-06-07] MEDS: NYSTATIN TOPICAL POWDER 15GM BOTTLE. TP SCH ×3 (09:00→20:39)
[2019-06-07] MEDS: NICOTINE 7MG PATCH. TD SCH (09:00)
[2019-06-07] MEDS: POTASSIUM CHLORIDE 20 MEQ TABLET.ER. PO SCH ×3 (09:18→20:39)
[2019-06-07] MEDS: MULTIVITAMIN with MINERAL TABLET. PO SCH (09:18)
[2019-06-07] MEDS: DIVALPROEX 125 MG CAP.SPRINK PO SCH ×3 (09:19→16:55)
[2019-06-07] MEDS: GABAPENTIN 300 MG CAPSULE. PO SCH ×3 (09:19→20:39)
[2019-06-07] MEDS: ASCORBIC ACID 500 MG TABLET PO SCH (09:19)
[2019-06-07] MEDS: ASPIRIN 81 MG TAB.CHEW PO SCH (09:19)
[2019-06-07] MEDS: VENLAFAXINE XR 37.5 MG CAP.ER.24H. PO SCH (09:19)
[2019-06-07] MEDS: POLYVINYL ALCOHOL 1.4% OPHTH SOLUTION 15ML BOTTLE. OU SCH ×2 (09:19→20:38)
[2019-06-07 16:23] VITALS: BP 138/75
[2019-06-07] MEDS: MORPHINE IR 15 MG TABLET PO SCH ×2 (20:31→20:42)
[2019-06-07] MEDS: MIRTAZAPINE 15 MG TABLET PO SCH (20:39)
--- NOTE | 2019-06-07 21:54 | PDOC ---
Exam Note: Luigi Note: Please also refer to the separate dictated note~for this date of service dictated separately.~Patient seen individually. Discussed the patient with Nursing staff reviewed the chart.~Reviewed interim history and current functioning. Reviewed vital signs,~Labs/ Radiology~and current medications noted below. Continue current treatment with the changes noted in the dictated addendum note Assessment: Vital Signs/I&O: Vital Signs Date Time Temp Pulse Resp B/P (MAP) Pulse Ox O2 Delivery O2 Flow Rate FiO2 06/07/19 20:42 18 Room Air 06/07/19 16:23 97.9 91 138/75 (96) 97 I & O 06/06/19 06/06/19 06/07/19 14:59 22:59 06:59 Intake Total 720 ml 480 ml 100 ml Balance 720 ml 480 ml 100 ml Current Medications: I have reviewed the current psychotropics carefully including drug interactions. Risk benefit ratio favors no change other than as noted in my dictated progress note. 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
[2019-06-08 06:33] VITALS: BP 106/61
[2019-06-08] MEDS: NICOTINE 7MG PATCH. TD SCH (09:00)
[2019-06-08] MEDS: POLYVINYL ALCOHOL 1.4% OPHTH SOLUTION 15ML BOTTLE. OU SCH ×2 (09:00→19:47)
[2019-06-08] MEDS: NYSTATIN TOPICAL POWDER 15GM BOTTLE. TP SCH ×2 (09:00→19:48)
[2019-06-08] MEDS: DIVALPROEX 125 MG CAP.SPRINK PO SCH ×3 (09:02→17:18)
[2019-06-08] MEDS: MULTIVITAMIN with MINERAL TABLET. PO SCH (09:02)
[2019-06-08] MEDS: VENLAFAXINE XR 37.5 MG CAP.ER.24H. PO SCH (09:02)
[2019-06-08] MEDS: GABAPENTIN 300 MG CAPSULE. PO SCH ×3 (09:02→19:48)
[2019-06-08] MEDS: ASCORBIC ACID 500 MG TABLET PO SCH (09:02)
[2019-06-08] MEDS: POTASSIUM CHLORIDE 20 MEQ TABLET.ER. PO SCH ×3 (09:03→19:47)
[2019-06-08] MEDS: ASPIRIN 81 MG TAB.CHEW PO SCH (09:03)
[2019-06-08 15:59] VITALS: BP 138/81
[2019-06-08] MEDS: MORPHINE IR 15 MG TABLET PO SCH (19:47)
[2019-06-08] MEDS: MIRTAZAPINE 15 MG TABLET PO SCH (19:48)
--- NOTE | 2019-06-08 20:00 | PN ---
DATE: 06/07/2019 PSYCHIATRIC PROGRESS NOTE This late entry 06/07/2019 covers the elements not covered in my initial note. SUBJECTIVE: I met with the patient in the evening of 06/07/2019 and reviewed information from Dr. Morales, regarding his coverage over the past 1 week while I was gone. The patient slept 7-1/2 hours previous night. He is irritable at times, arguing at mealtimes, sitting in his chair, somewhat withdrawn at other times. REVIEW OF SYSTEMS: Hard of hearing, impaired ambulation in wheelchair. No CV, , pulmonary, eye system symptoms on review. MENTAL STATUS EXAM: Appears confused but reasonably oriented. Speech is moderate latency, often responses monosyllabic. Abstraction fair, computation impaired, language function intact. Mood and affect withdrawn. LABORATORY DATA: Reviewed. IMPRESSION: Major depressive disorder, recurrent with psychotic features; impulse control disorder; anxiety disorder, unspecified; cognitive disorder, unspecified. PLAN: Valproic acid level low subtherapeutic 8 on Depakote Sprinkles 125 three times a day. We will increase to 250 mg twice a day, 125 mg once a day. Check CBC, CMP, valproic acid level in 3 days. Maintain Remeron 15 mg at bedtime, Effexor XR 75 mg a day, Zyprexa p.r.n. MAN Regis CEDEÑO MD DR: DANIA/katelynn JOB#: [id number] / [id number]
--- NOTE | 2019-06-08 21:55 | PDOC ---
Exam Note: Luigi Note: Please also refer to the separate dictated note~for this date of service dictated separately.~Patient seen individually. Discussed the patient with Nursing staff reviewed the chart.~Reviewed interim history and current functioning. Reviewed vital signs,~Labs/ Radiology~and current medications noted below. Continue current treatment with the changes noted in the dictated addendum note Assessment: Vital Signs/I&O: Vital Signs Date Time Temp Pulse Resp B/P (MAP) Pulse Ox O2 Delivery O2 Flow Rate FiO2 06/08/19 20:49 18 Room Air 06/08/19 19:47 93 06/08/19 15:59 98.9 76 138/81 (100) I & O 06/07/19 06/07/19 06/08/19 15:00 23:00 07:00 Intake Total 360 ml 240 ml 120 ml Balance 360 ml 240 ml 120 ml Current Medications: Meds: Current Medications Medications (Trade) Dose Ordered Sig/Vicki Route PRN Reason Start Time Stop Time Status Last Admin Dose Admin Divalproex Sodium (Depakote Sprinkles) 125 mg 1300 PO 06/08/19 13:00 06/08/19 14:15 Divalproex Sodium (Depakote Sprinkles) 250 mg BID@0900,1700 PO 06/08/19 09:00 06/08/19 17:18 I have reviewed the current psychotropics carefully including drug interactions. Risk benefit ratio favors no change other than as noted in my dictated progress note. Diagnosis: Problems: (1) Anxiety disorder (2) Impulse control disorder (3) Major depressive disorder, recurrent episode (4) Dementia, vascular, with depression (5) Dementia, vascular, with delusions (6) Dementia in Alzheimer's disease with depression (7) Dementia in Alzheimer's disease with delusions SARA CEDEÑO MD Jun 08, 2019 21:55
[2019-06-09 05:44] VITALS: BP 138/80
[2019-06-09] MEDS: NYSTATIN TOPICAL POWDER 15GM BOTTLE. TP SCH ×2 (09:00→19:57)
[2019-06-09] MEDS: NICOTINE 7MG PATCH. TD SCH (09:00)
[2019-06-09] MEDS: POLYVINYL ALCOHOL 1.4% OPHTH SOLUTION 15ML BOTTLE. OU SCH ×2 (09:00→19:57)
[2019-06-09] MEDS: VENLAFAXINE XR 37.5 MG CAP.ER.24H. PO SCH (09:09)
[2019-06-09] MEDS: DIVALPROEX 125 MG CAP.SPRINK PO SCH ×3 (09:09→17:22)
[2019-06-09] MEDS: ASPIRIN 81 MG TAB.CHEW PO SCH (09:09)
[2019-06-09] MEDS: MULTIVITAMIN with MINERAL TABLET. PO SCH (09:09)
[2019-06-09] MEDS: POTASSIUM CHLORIDE 20 MEQ TABLET.ER. PO SCH ×3 (09:09→19:54)
[2019-06-09] MEDS: ASCORBIC ACID 500 MG TABLET PO SCH (09:10)
[2019-06-09] MEDS: GABAPENTIN 300 MG CAPSULE. PO SCH ×3 (09:10→19:54)
[2019-06-09 17:02] VITALS: BP 133/80
[2019-06-09] MEDS: MORPHINE IR 15 MG TABLET PO SCH (19:54)
[2019-06-09] MEDS: MIRTAZAPINE 15 MG TABLET PO SCH (19:54)
--- NOTE | 2019-06-09 21:50 | PDOC ---
Exam Note: Uligi Note: Please also refer to the separate dictated note~for this date of service dictated separately.~Patient seen individually. Discussed the patient with Nursing staff reviewed the chart.~Reviewed interim history and current functioning. Reviewed vital signs,~Labs/ Radiology~and current medications noted below. Continue current treatment with the changes noted in the dictated addendum note Assessment: Vital Signs/I&O: Vital Signs Date Time Temp Pulse Resp B/P (MAP) Pulse Ox O2 Delivery O2 Flow Rate FiO2 06/09/19 19:54 99 Room Air 06/09/19 17:02 97.6 78 16 133/80 (97) I & O 06/08/19 06/08/19 06/09/19 15:00 23:00 07:00 Intake Total 720 ml 340 ml Balance 720 ml 340 ml Current Medications: I have reviewed the current psychotropics carefully including drug interactions. Risk benefit ratio favors no change other than as noted in my dictated progress note. Diagnosis: Problems: (1) Anxiety disorder (2) Impulse control disorder (3) Major depressive disorder, recurrent episode (4) Dementia, vascular, with depression (5) Dementia, vascular, with delusions (6) Dementia in Alzheimer's disease with depression (7) Dementia in Alzheimer's disease with delusions SARA CEDEÑO MD Jun 09, 2019 21:49
--- NOTE | 2019-06-09 23:59 | PN ---
DATE: 06/08/2019 PSYCHIATRIC PROGRESS NOTE This late entry 06/08/2019 covers elements not covered in my initial note. SUBJECTIVE: I met with the patient in the evening. Per SULEMA Hernandez patient slept 7 hours previous night. He remains fairly pleasant, irritable at lunch, flat, withdrawn, compliant with medications. His came for lunch and cleaned his hearing aids. REVIEW OF SYSTEMS: Ambulation impaired, in wheelchair. No CV, , pulmonary, eye system symptoms on review. Hard of hearing with hearing aids. MENTAL STATUS EXAM: Does not quite interact due to his hearing problems, but on specific questioning, he is quite oriented. Abstraction fair, computation impaired, language function intact, attention span short. Mood and affect withdrawn. LABORATORY DATA: Reviewed. IMPRESSION: Unchanged from initial note. PLAN: No change from initial note. MAN Regis CEDEÑO MD DR: DANIA/katelynn JOB#: [id number] / [id number]
[2019-06-10 06:28] VITALS: BP 115/70
[2019-06-10] MEDS: VENLAFAXINE XR 37.5 MG CAP.ER.24H. PO SCH (08:48)
[2019-06-10] MEDS: NICOTINE 7MG PATCH. TD SCH ×2 (08:48→09:00)
[2019-06-10] MEDS: POTASSIUM CHLORIDE 20 MEQ TABLET.ER. PO SCH ×3 (08:49→20:57)
[2019-06-10] MEDS: MULTIVITAMIN with MINERAL TABLET. PO SCH (08:49)
[2019-06-10] MEDS: DIVALPROEX 125 MG CAP.SPRINK PO SCH ×3 (08:49→17:19)
[2019-06-10] MEDS: GABAPENTIN 300 MG CAPSULE. PO SCH ×3 (08:49→20:56)
[2019-06-10] MEDS: ASCORBIC ACID 500 MG TABLET PO SCH (08:49)
[2019-06-10] MEDS: ASPIRIN 81 MG TAB.CHEW PO SCH (08:49)
[2019-06-10] MEDS: NYSTATIN TOPICAL POWDER 15GM BOTTLE. TP SCH ×2 (08:50→20:57)
[2019-06-10] MEDS: POLYVINYL ALCOHOL 1.4% OPHTH SOLUTION 15ML BOTTLE. OU SCH ×2 (09:00→20:56)
[2019-06-10 16:26] VITALS: BP 138/76
[2019-06-10] MEDS: MIRTAZAPINE 15 MG TABLET PO SCH (20:56)
[2019-06-10] MEDS: MORPHINE IR 15 MG TABLET PO SCH (20:56)
--- NOTE | 2019-06-10 21:15 | PDOC ---
Exam Note: Luigi Note: Please also refer to the separate dictated note~for this date of service dictated separately.~Patient seen individually. Discussed the patient with Nursing staff reviewed the chart.~Reviewed interim history and current functioning. Reviewed vital signs,~Labs/ Radiology~and current medications noted below. Continue current treatment with the changes noted in the dictated addendum note Assessment: Vital Signs/I&O: Vital Signs Date Time Temp Pulse Resp B/P (MAP) Pulse Ox O2 Delivery O2 Flow Rate FiO2 06/10/19 20:56 Room Air 06/10/19 16:26 97.2 82 16 138/76 (96) 96 I & O 06/09/19 06/09/19 06/10/19 15:00 23:00 07:00 Intake Total 840 ml 360 ml 120 ml Balance 840 ml 360 ml 120 ml Current Medications: I have reviewed the current psychotropics carefully including drug interactions. Risk benefit ratio favors no change other than as noted in my dictated progress note. Diagnosis: Problems: (1) Anxiety disorder (2) Impulse control disorder (3) Major depressive disorder, recurrent episode (4) Dementia, vascular, with depression (5) Dementia, vascular, with delusions (6) Dementia in Alzheimer's disease with depression (7) Dementia in Alzheimer's disease with delusions SARA CEDEÑO MD Jun 10, 2019 21:14
[2019-06-11] MEDS ORDERED: NICO1PAT25 TD (01:34)
[2019-06-11] MEDS ORDERED: ASPI-630 PO (01:37)
[2019-06-11] MEDS ORDERED: DIVA125C2 PO ×2 (01:48→01:50)
[2019-06-11] MEDS ORDERED: VENL75CA PO (01:53)
[2019-06-11] MEDS ORDERED: POTA20TA4 PO (01:57)
[2019-06-11] MEDS ORDERED: ASCO500T3 PO (02:05)
[2019-06-11] MEDS ORDERED: CHOL500021 PO (02:06)
[2019-06-11] MEDS ORDERED: METH28OI2 TP (02:11)
[2019-06-11] MEDS ORDERED: ACET325T9 PO (02:14)
[2019-06-11] MEDS ORDERED: OLAN5TAB5 PO (02:15)
[2019-06-11] MEDS ORDERED: MAG355OR17 PO (02:17)
[2019-06-11] MEDS ORDERED: POLY15DR20 EACHEYE (02:19)
[2019-06-11 06:32] VITALS: BP 109/67
[2019-06-11 07:03] LABS: ALBUMIN 2.5 g/dL (3.4-5.0); ALBUMIN/GLOBULIN RATIO 0.7 (1.0-1.7); ALK PHOS 51 U/L (46-116); ALT (SGPT) 16 U/L (16-63); ANION GAP 5 (6-14); AST (SGOT) 14 U/L (15-37); BLOOD UREA NITROGEN 15 mg/dL (8-26); BUN/CREATININE RATIO 30 (6-20); CALCIUM 8.3 mg/dL (8.5-10.1); CARBON DIOXIDE 29 mmol/L (21-32); CHLORIDE 108 mmol/L (98-107); CREATININE 0.5 mg/dL (0.7-1.3); GFR 164.9; GLUCOSE 88 mg/dL (70-99); POTASSIUM 4.3 mmol/L (3.5-5.1); SODIUM 142 mmol/L (136-145); TOTAL BILIRUBIN 0.6 mg/dL (0.2-1.0); TOTAL PROTEIN 6.1 g/dL (6.4-8.2)
[2019-06-11 07:13] LABS: VAL ACID 25 mcg/mL (50-100)
[2019-06-11 07:17] LABS: BASO # 0.1 x10^3/uL (0.0-0.2); BASO % 1 % (0-3); EOS % 1 % (0-3); HEMATOCRIT 31.3 % (39.0-53.0); HEMOGLOBIN 10.4 g/dL (13.0-17.5); LYMPH % 13 % (24-48); MEAN CORPUSCULAR HEMOGLOBIN 30 pg (25-35); MEAN CORPUSCULAR HGB CONC 33 g/dL (31-37); MEAN CORPUSCULAR VOLUME 89 fL (79-100); MONO # 1.2 x10^3/uL (0.0-1.1); MONO % 15 % (0-9); NEUT # 5.9 x10^3uL (1.8-7.7); NEUT % 71 % (31-73); PLATELET COUNT 265 x10^3/uL (140-400); RED BLOOD COUNT 3.53 x10^6/uL (4.30-5.70); RED CELL DISTRIBUTION WIDTH 14.8 % (11.5-14.5); WHITE BLOOD COUNT 8.3 x10^3/uL (4.0-11.0)
[2019-06-11] MEDS ORDERED: POTASSIUM CHLORIDE 20 MEQ TABLET.ER. PO SCH (08:00)
[2019-06-11] MEDS ORDERED: FUROSEMIDE 40 MG TABLET PO SCH (09:00)
[2019-06-11] MEDS: GABAPENTIN 300 MG CAPSULE. PO SCH (09:25)
[2019-06-11] MEDS: MULTIVITAMIN with MINERAL TABLET. PO SCH (09:25)
[2019-06-11] MEDS: ASPIRIN 81 MG TAB.CHEW PO SCH (09:25)
[2019-06-11] MEDS: DIVALPROEX 125 MG CAP.SPRINK PO SCH (09:25)
[2019-06-11] MEDS: VENLAFAXINE XR 37.5 MG CAP.ER.24H. PO SCH (09:26)
[2019-06-11] MEDS: CHOLECALCIFEROL (VITAMIN D3) 50,000 UNIT CAPSULE PO SCH (09:26)
[2019-06-11] MEDS: ASCORBIC ACID 500 MG TABLET PO SCH (09:26)
[2019-06-11] MEDS: POTASSIUM CHLORIDE 20 MEQ TABLET.ER. PO SCH (09:26)
[2019-06-11] MEDS ORDERED: NYST15PO9 TP (12:11)
--- NOTE | 2019-06-11 19:27 | PN ---
DATE: 06/09/2019 This late entry, 06/09/2019, covers elements not covered in my initial note. SUBJECTIVE: I met with the patient evening of 06/09/2019. Per SULEMA Santos, patient slept 8-1/4 hours previous night. He remains somewhat withdrawn, agitated at the staff that they were not helping him. He is able to do more for himself than he tends to, at times urinating in the hallway. REVIEW OF SYSTEMS: Hard of hearing. Impaired ambulation in wheelchair. No CV, , pulmonary, or eye system symptoms on review. MENTAL STATUS EXAM: Oriented reasonably. Speech has some latency, often responses monosyllabic. Abstraction fair, computation impaired, and language function intact. Mood and affect withdrawn. LABORATORY DATA: Reviewed. IMPRESSION: Unchanged from initial note. PLAN: No change from initial note. would like him home. Even though he seems to need a higher level of care, we will have to defer to her. Social service staff is addressing this. MAN Regis CEDEÑO MD DR: DANIA/katelynn JOB#: [id number] / [id number]
--- NOTE | 2019-06-11 19:55 | PN ---
DATE: 06/10/2019 This late entry of 06/10/2019 covers elements not covered in my initial note. SUBJECTIVE: I met with the patient in the evening and staffed at a treatment team meeting with the entire team in the morning. The patient slept 5-1/4 hours previous night. He has been flat, somewhat withdrawn, irritable, argumentative with staff, helpless, does less for himself than he is capable of. wants to take him home at discharge and she will have to have intensive home health services. REVIEW OF SYSTEMS: Hard of hearing, impaired ambulation in wheelchair. No CV, , pulmonary, eye system symptoms on review. MENTAL STATUS EXAM: Reasonably oriented. Speech moderate latency, coherent, at times a little pressured. Abstraction fair, computation impaired, language function intact. Mood and affect withdrawn. LABORATORY DATA: Reviewed. IMPRESSION: Major depressive disorder, recurrent, in partial remission; mild cognitive impairment; anxiety disorder, unspecified. PLAN: Continue psychotropics from initial note. SARA CEDEÑO MD DR: DANIA/katelynn JOB#: [id number] / [id number]
--- NOTE | 2019-06-11 21:23 | PDOC ---
Exam Note: Luigi Note: Please also refer to the separate dictated note~for this date of service dictated separately.~Patient seen individually. Discussed the patient with Nursing staff reviewed the chart.~Reviewed interim history and current functioning. Reviewed vital signs,~Labs/ Radiology~and current medications noted below. Continue current treatment with the changes noted in the dictated addendum note Assessment: Vital Signs/I&O: Vital Signs Date Time Temp Pulse Resp B/P (MAP) Pulse Ox O2 Delivery O2 Flow Rate FiO2 06/11/19 06:32 97.8 85 18 109/67 (81) 95 Room Air I & O 06/10/19 06/10/19 06/11/19 15:00 23:00 07:00 Intake Total 240 ml 240 ml Balance 240 ml 240 ml Labs: Laboratory Tests Test 06/11/19 06:30 White Blood Count 8.3 x10^3/uL (4.0-11.0) Red Blood Count 3.53 x10^6/uL (4.30-5.70) L Hemoglobin 10.4 g/dL (13.0-17.5) L Hematocrit 31.3 % (39.0-53.0) L Mean Corpuscular Volume 89 fL (79-100) Mean Corpuscular Hemoglobin 30 pg (25-35) Mean Corpuscular Hemoglobin Concent 33 g/dL (31-37) Red Cell Distribution Width 14.8 % (11.5-14.5) H Platelet Count 265 x10^3/uL (140-400) Neutrophils (%) (Auto) 71 % (31-73) Lymphocytes (%) (Auto) 13 % (24-48) L Monocytes (%) (Auto) 15 % (0-9) H Eosinophils (%) (Auto) 1 % (0-3) Basophils (%) (Auto) 1 % (0-3) Neutrophils # (Auto) 5.9 x10^3uL (1.8-7.7) Lymphocytes # (Auto) 1.0 x10^3/uL (1.0-4.8) Monocytes # (Auto) 1.2 x10^3/uL (0.0-1.1) H Eosinophils # (Auto) 0.0 x10^3/uL (0.0-0.7) Basophils # (Auto) 0.1 x10^3/uL (0.0-0.2) Sodium Level 142 mmol/L (136-145) Potassium Level 4.3 mmol/L (3.5-5.1) Chloride Level 108 mmol/L (98-107) H Carbon Dioxide Level 29 mmol/L (21-32) Anion Gap 5 (6-14) L Blood Urea Nitrogen 15 mg/dL (8-26) Creatinine 0.5 mg/dL (0.7-1.3) L Estimated GFR (Cockcroft-Gault) 164.9 BUN/Creatinine Ratio 30 (6-20) H Glucose Level 88 mg/dL (70-99) Calcium Level 8.3 mg/dL (8.5-10.1) L Total Bilirubin 0.6 mg/dL (0.2-1.0) Aspartate Amino Transferase (AST) 14 U/L (15-37) L Alanine Aminotransferase (ALT) 16 U/L (16-63) Alkaline Phosphatase 51 U/L (46-116) Total Protein 6.1 g/dL (6.4-8.2) L Albumin 2.5 g/dL (3.4-5.0) L Albumin/Globulin Ratio 0.7 (1.0-1.7) L Valproic Acid Level 25 mcg/mL (50-100) L Valproic Acid Last Dose Date 06/10/2019 Valproic Acid Last Dose Time 1700 Current Medications: Meds: Current Medications Medications (Trade) Dose Ordered Sig/Vicki Route PRN Reason Start Time Stop Time Status Last Admin Dose Admin Furosemide (Lasix) 40 mg DAILY PO 06/11/19 09:00 06/11/19 13:42 DC 06/11/19 09:25 I have reviewed the current psychotropics carefully including drug interactions. Risk benefit ratio favors no change other than as noted in my dictated progress note. Diagnosis: Problems: (1) Anxiety disorder (2) Impulse control disorder (3) Major depressive disorder, recurrent episode (4) Dementia, vascular, with depression (5) Dementia, vascular, with delusions (6) Dementia in Alzheimer's disease with depression (7) Dementia in Alzheimer's disease with delusions SARA CEDEÑO MD Jun 11, 2019 21:22
--- NOTE | 2019-06-13 22:09 | DS ---
DATE OF DISCHARGE: 06/11/2019 This late entry 06/11/2019 covers elements not covered in my initial note. REASON FOR ADMISSION: Please refer to the admission history for details. Briefly, the patient is a 68-year-old male referred to us from [facility] by his primary care physician on account of inappropriate sexual behaviors. He was asking staff to touch his penis and help him get an erection. He was increasingly agitated, difficult to redirect with marked mood lability and failed outpatient psychiatric interventions. SIGNIFICANT FINDINGS AND CLINICAL COURSE: Following admission, the patient was seen daily individually by myself from a psychiatric standpoint, medical followup with Dr. Bowser. The patient was quite hard of hearing and until his got his hearing aids, it was difficult to communicate with him. He appeared more confused initially because of hard of hearing status, but much more oriented once he was hearing better. He is quite impulsive, anxious. Adjustments were made in his psychotropics and he seemed to respond to a combination of Depakote 250 mg twice a day, 125 mg at 1300, Remeron 15 mg at bedtime, Effexor XR 75 mg a day, Zyprexa p.r.n. Gradually mood appeared to improve. He was less anxious, restless, wanting to be discharged home, which is what the family wanted to do. REVIEW OF SYSTEMS: Prior to discharge, 06/11/2019, no CV, , pulmonary, eye system symptoms on review. Hard of hearing, impaired ambulation in wheelchair. MENTAL STATUS EXAMINATION: Oriented to himself and situation. Speech moderate latency, often responses monosyllabic. Abstraction fair, computation impaired, language function intact, attention span short. Mood and affect, lability was improved. LABORATORY DATA: Reviewed. IMPRESSION: Major depressive disorder, recurrent with psychotic features; impulse control disorder; anxiety disorder, unspecified; mild cognitive impairment. Rest unchanged from admission. DISCHARGE MEDICATIONS: Please refer to the MRAD. DISCHARGE INSTRUCTIONS: Outpatient psychiatric and medical followup as arranged prior to discharge. MAN Regis CEDEÑO MD DR: DANIA/katelynn JOB#: [id number] / [id number]
== END 2019-06-11 12:50 | disposition home health service (06) | DRG 885 ==
LOC: ER 22:33 → GEROPSY 05-26 03:14
PROVIDERS: ADMIT Psychiatry & Neurology Psychiatry; ATTEND Psychiatry & Neurology Psychiatry
DX: F33.3 Major depressive disorder, recurrent, severe with psychotic symptoms (principal); G81.91 Hemiplegia, unspecified affecting right dominant side; G81.94 Hemiplegia, unspecified affecting left nondominant side; F63.9 Impulse disorder, unspecified; F41.9 Anxiety disorder, unspecified; G30.9 Alzheimer's disease, unspecified; I10 Essential (primary) hypertension; E87.6 Hypokalemia; E78.00 Pure hypercholesterolemia, unspecified; E78.5 Hyperlipidemia, unspecified; F17.210 Nicotine dependence, cigarettes, uncomplicated; H91.90 Unspecified hearing loss, unspecified ear; I25.10 Atherosclerotic heart disease of native coronary artery without angina pectoris; J42 Unspecified chronic bronchitis; Z79.899 Other long term (current) drug therapy; Z82.49 Family history of ischemic heart disease and other diseases of the circulatory system; Z86.73 Personal history of transient ischemic attack (TIA), and cerebral infarction without residual deficits; Z99.3 Dependence on wheelchair; Z91.81 History of falling; Z83.3 Family history of diabetes mellitus; Z74.01 Bed confinement status; F01.50 Vascular dementia, unspecified severity, without behavioral disturbance, psychotic disturbance, mood disturbance, and anxiety; F02.80 Dementia in other diseases classified elsewhere, unspecified severity, without behavioral disturbance, psychotic disturbance, mood disturbance, and anxiety
CPT/HCPCS: 36415; 80048; 80053; 80061; 80164; 81001; 82140; 82306; 83036; 83540; 83550; 83735; 84436; 84443; 84480; 85025; 86592; 87045; 87086; 93005; 96365; 96366; 99407; J3480; 99285-25